=== PATIENT | male | born 1945 | race Caucasian/White ===

== ENCOUNTER → 2020-10-15 09:10 | Outpatient (BNVA) | payer OTHER, SELFPAY | PROVIDERS: PCP Internal Medicine; Visit Provider Internal Medicine Cardiovascular Disease | DX: I25.10 Atherosclerotic heart disease of native coronary artery without angina pectoris (principal); I49.1 Atrial premature depolarization; E11.9 Type 2 diabetes mellitus without complications | CPT/HCPCS: 93005 ==

== ENCOUNTER → 2020-11-06 14:18 | Outpatient (REF) | payer OTHER, SELFPAY ==
--- NOTE | 2020-11-06 14:13 | ECG_ITS ---
Hook-up date: 2020-11-06 14:31:00 Duration: 24:41:00 Test Indications: TYPE II DM, ATRIAL PREMATURE DEP Medications: 123730 QRS complexes 1318 Ventricular ectopics which represent 1 % of total QRS comp. 2822 Supraventricular ectopics which represent 2 % of total QRS comp. * Paced QRS complexs which represent % of total QRS comp. VENTRICULAR ECTOPY 1310 Isolated 0 Bigeminal Cycles 4 Couplets 0 Runs 0 Beats in Runs * Beats LONGEST at * BPM at :: -- * Beats FASTEST at * BPM at :: -- SUPRAVENTRICULAR ECTOPY 2751 Isolated 28 Couplets 5 Runs 15 Beats in Runs 3 Beats LONGEST at 117 BPM at 18:05:59 2020-11-06 3 Beats FASTEST at 117 BPM at 18:05:59 2020-11-06 HEART RATES 48 MIN at 17:07:39 2020-11-06 70 AVG 104 MAX at 10:55:44 2020-11-07 LONGEST RR 1.2720 secs at 16:56:56 2020-11-06 S-T LEVELS Channel 1 - 128 mm at 14:31:00 2020-11-06 - 128 mm at 14:31:00 2020-11-06 Channel 2 - 128 mm at 14:31:00 2020-11-06 - 128 mm at 14:31:00 2020-11-06 Channel 3 - 128 mm at 03:35:01 -- - 128 mm at 03:35:01 Underlyiing rhythm is sinus; Average ventricular rate 70/min; range 48-104/min; Frequent supraventricular ectopy (3% of total beats); Occasional ventricular ectopy (1% of total beats); Patient did not report any symptoms in the diary Referred By: Mykel Hernandez Overread By: MARIETTA ALEJANDRO
== END ==
LOC: HO.CARD 14:18
PROVIDERS: Visit Provider Internal Medicine Cardiovascular Disease
DX: I49.1 Atrial premature depolarization (principal); E11.9 Type 2 diabetes mellitus without complications
CPT/HCPCS: 93225; 93226

== ENCOUNTER 2021-03-15 07:58 | Outpatient (REF) | payer OTHER, SELFPAY ==
[2021-03-15 08:48] LABS: MANUAL DIFF FLAG NO
[2021-03-15 08:52] LABS: Basophils Absolute Auto 0.1 X10*3/uL (0.0-0.2); Basophils Percent Auto 1.4 % (0-2); Eosinophils Absolute Auto 0.5 X10*3/uL (0.0-0.4); Eosinophils Percent Auto 7.5 % (0-4); Hematocrit 42.4 % (42-52); Hemoglobin 14.2 g/dl (14.0-18.0); Imm Gran Abs Auto 0.02 X10*3/uL (0.00-0.03); Imm Gran Pct Auto 0.3 % (0.0-0.4); Lymphocytes Absolute Auto 1.9 X10*3/uL (1.2-4.9); Lymphocytes Percent Auto 27.2 % (20-40); Mean Corpuscular HGB Conc 33.5 g/dl (31.0-36.0); Mean Corpuscular Hemoglobin 29.5 pg (27.0-33.0); Mean Platelet Volume 9.5 fL (9.4-12.4); Monocytes Absolute Auto 0.7 X10*3/uL (0.1-1.2); Neutrophils Absolute Auto 3.7 X10*3/uL (2.0-8.3); Neutrophils Percent Auto 53.6 % (45-73); Platelet Count 267 X10*3/uL (160-400); Red Blood Count 4.82 X10*6/uL (4.60-5.80); Red Cell Distribution Width 13.5 % (11.0-16.0); White Blood Count 6.9 X10*3/uL (4.8-10.8)
[2021-03-15 09:01] LABS: Estimated Average Glucose 197 mg/dL; Hemoglobin A1c % 8.5 %
[2021-03-15 09:26] LABS: Alanine Aminotransferase 18 U/L (0-40); Albumin Level 3.9 g/dL (3.5-5.0); Alkaline Phosphatase 54 U/L (39-117); Anion Gap 12 (12-20); Aspartate Amino Transferase 19 U/L (5-37); Bilirubin Total 0.5 mg/dL (0.0-1.0); Blood Urea Nitrogen 21 mg/dL (9-16); Calcium 9.1 mg/dL (8.4-10.2); Carbon Dioxide 25 mmol/L (22-29); Chloride 107 mmol/L (96-108); Estimated Glomerular Filt Rate > 60; Glucose Random 139 mg/dL (60-115); Potassium 4.4 mmol/L (3.3-5.1); Sodium 140 mmol/L (135-145); Total Protein 6.7 g/dL (6.5-8.0)
[2021-03-15 09:33] LABS: Uric Acid 8.3 mg/dL (3.4-7.0)
[2021-03-15 09:37] LABS: Creatinine Urine 121.58 mg/dL; Microalbum/Creatinine Ratio Ur 10.6 ug/mg cr
[2021-03-15 09:47] LABS: Thyroid Stimulating Hormone 3.51 uIU/mL (0.32-4.0)
== END 2021-03-15 07:59 | disposition home or self-care (01) ==
LOC: HO.LAB 07:58
PROVIDERS: PCP Internal Medicine; Visit Provider Internal Medicine
DX: M10.9 Gout, unspecified (principal); E03.9 Hypothyroidism, unspecified; I12.9 Hypertensive chronic kidney disease with stage 1 through stage 4 chronic kidney disease, or unspecified chronic kidney disease; N18.9 Chronic kidney disease, unspecified; E11.22 Type 2 diabetes mellitus with diabetic chronic kidney disease
CPT/HCPCS: 36415; 80053; 82043; 83036; 84443; 84550; 85025

== ENCOUNTER 2021-11-12 07:44 | Outpatient (REF) | payer OTHER, SELFPAY ==
[2021-11-12 08:26] LABS: MANUAL DIFF FLAG NO
[2021-11-12 08:52] LABS: Basophils Absolute Auto 0.1 X10*3/uL (0.0-0.2); Basophils Percent Auto 1.2 % (0-2); Eosinophils Absolute Auto 0.5 X10*3/uL (0.0-0.4); Hematocrit 45.6 % (42.0-52.0); Hemoglobin 14.9 g/dl (14.0-18.0); Imm Gran Abs Auto 0.02 X10*3/uL (0.00-0.03); Imm Gran Pct Auto 0.3 % (0.0-0.4); Lymphocytes Absolute Auto 2.1 X10*3/uL (1.2-4.9); Lymphocytes Percent Auto 28.4 % (20-40); Mean Corpuscular HGB Conc 32.7 g/dl (31.0-36.0); Mean Corpuscular Volume 88.7 fL (80.0-98.0); Mean Platelet Volume 9.5 fL (9.4-12.4); Monocytes Absolute Auto 0.6 X10*3/uL (0.1-1.2); Monocytes Percent Auto 8.4 % (2-11); Neutrophils Absolute Auto 4.2 x10*3/uL (2.0-8.3); Neutrophils Percent Auto 55.7 % (45-73); Platelet Count 243 X10*3/uL (160-400); Red Blood Count 5.14 X10*6/uL (4.60-5.80); Red Cell Distribution Width 13.5 % (11.0-16.0); White Blood Count 7.5 X10*3/uL (4.8-10.8)
[2021-11-12 09:17] LABS: Estimated Average Glucose 306 mg/dL; Hemoglobin A1c % 12.3 %
[2021-11-12 09:18] LABS: Alanine Aminotransferase 41 U/L (0-40); Alkaline Phosphatase 68 U/L (39-117); Anion Gap 16 (12-20); Aspartate Amino Transferase 34 U/L (5-37); Bilirubin Total 0.6 mg/dL (0.0-1.0); Blood Urea Nitrogen 29 mg/dL (9-16); Calcium 9.5 mg/dL (8.4-10.2); Carbon Dioxide 23 mmol/L (22-29); Chloride 101 mmol/L (96-108); Cholesterol 167 mg/dL; Estimated Glomerular Filt Rate 45; Glucose Fasting 347 mg/dL (60-99); HDL Cholesterol 30 mg/dL; LDL Cholesterol Calculated 63 mg/dl; Potassium 4.7 mmol/L (3.3-5.1); Sodium 135 mmol/L (135-145); Total Protein 7.1 g/dL (6.5-8.0); Triglycerides 373 mg/dL; Uric Acid 8.2 mg/dL (3.4-7.0)
[2021-11-12 09:41] LABS: Free T4 (Free Thyroxine) 0.87 ng/dL (0.71-1.85); Prostate Specific Antigen 2.48 ng/mL (<0.05-4.0); Thyroid Stimulating Hormone 9.11 uIU/mL (0.32-4.0)
[2021-11-12 10:11] LABS: Creatinine Urine 75.45 mg/dL; Microalbum/Creatinine Ratio Ur 6.6 ug/mg cr
== END 2021-11-12 07:45 | disposition home or self-care (01) ==
LOC: HO.LAB 07:44
PROVIDERS: PCP Internal Medicine; Visit Provider Internal Medicine
DX: Z12.5 Encounter for screening for malignant neoplasm of prostate (principal); E11.9 Type 2 diabetes mellitus without complications; I25.10 Atherosclerotic heart disease of native coronary artery without angina pectoris; E03.9 Hypothyroidism, unspecified; E78.00 Pure hypercholesterolemia, unspecified; N40.0 Benign prostatic hyperplasia without lower urinary tract symptoms; M10.9 Gout, unspecified
CPT/HCPCS: 36415; 80053; 80061; 82043; 83036; 84153; 84439; 84443; 84550; 85025

== ENCOUNTER 2021-12-27 07:42 | Outpatient (REF) | payer OTHER, SELFPAY ==
[2021-12-27 08:38] LABS: Estimated Average Glucose 258 mg/dL; Hemoglobin A1c % 10.6 %
[2021-12-27 08:43] LABS: Alanine Aminotransferase 33 U/L (0-40); Alkaline Phosphatase 43 U/L (39-117); Anion Gap 14 (12-20); Aspartate Amino Transferase 30 U/L (5-37); Bilirubin Total 0.8 mg/dL (0.0-1.0); Blood Urea Nitrogen 20 mg/dL (9-16); Calcium 10.2 mg/dL (8.4-10.2); Carbon Dioxide 24 mmol/L (22-29); Chloride 106 mmol/L (96-108); Estimated Glomerular Filt Rate 53; Glucose Random 149 mg/dL (60-115); Potassium 4.6 mmol/L (3.3-5.1); Sodium 139 mmol/L (135-145)
[2021-12-27 09:05] LABS: Free T4 (Free Thyroxine) 1.01 ng/dL (0.71-1.85); Thyroid Stimulating Hormone 5.61 uIU/mL (0.32-4.0)
== END 2021-12-27 07:43 | disposition home or self-care (01) ==
LOC: HO.LAB 07:42
PROVIDERS: PCP Internal Medicine; Visit Provider Internal Medicine
DX: E11.9 Type 2 diabetes mellitus without complications (principal); N18.9 Chronic kidney disease, unspecified; E03.9 Hypothyroidism, unspecified
CPT/HCPCS: 36415; 80053; 83036; 84439; 84443

== ENCOUNTER 2022-03-15 07:18 | Outpatient (REF) | payer OTHER, SELFPAY ==
[2022-03-15 08:30] LABS: Alanine Aminotransferase 17 U/L (0-40); Albumin Level 3.9 g/dL (3.5-5.0); Alkaline Phosphatase 47 U/L (39-117); Anion Gap 13 (12-20); Aspartate Amino Transferase 18 U/L (5-37); Bilirubin Total 0.6 mg/dL (0.0-1.0); Blood Urea Nitrogen 23 mg/dL (9-16); Calcium 9.2 mg/dL (8.4-10.2); Carbon Dioxide 23 mmol/L (22-29); Chloride 106 mmol/L (96-108); Estimated Glomerular Filt Rate 59; Glucose Random 186 mg/dL (60-115); Potassium 4.4 mmol/L (3.3-5.1); Sodium 138 mmol/L (135-145); Total Protein 6.9 g/dL (6.5-8.0)
[2022-03-15 08:33] LABS: Estimated Average Glucose 206 mg/dL; Hemoglobin A1c % 8.8 %
[2022-03-15 08:54] LABS: Free T4 (Free Thyroxine) 0.86 ng/dL (0.71-1.85); Thyroid Stimulating Hormone 7.61 uIU/mL (0.32-4.0)
== END 2022-03-15 07:19 | disposition home or self-care (01) ==
LOC: HO.LAB 07:18
PROVIDERS: PCP Internal Medicine; Visit Provider Internal Medicine
DX: E78.00 Pure hypercholesterolemia, unspecified (principal); I25.10 Atherosclerotic heart disease of native coronary artery without angina pectoris; E11.22 Type 2 diabetes mellitus with diabetic chronic kidney disease; N18.9 Chronic kidney disease, unspecified
CPT/HCPCS: 36415; 80053; 83036; 84439; 84443

== ENCOUNTER 2022-06-13 08:34 | Outpatient (REF) | payer OTHER, SELFPAY ==
[2022-06-13 08:48] LABS: MANUAL DIFF FLAG NO
[2022-06-13 09:06] LABS: Basophils Absolute Auto 0.1 X10*3/uL (0.0-0.2); Basophils Percent Auto 1.3 % (0-2); Eosinophils Absolute Auto 0.4 X10*3/uL (0.0-0.4); Hematocrit 48.2 % (42.0-52.0); Hemoglobin 15.7 g/dl (14.0-18.0); Imm Gran Abs Auto 0.02 X10*3/uL (0.00-0.03); Imm Gran Pct Auto 0.3 % (0.0-0.4); Lymphocytes Absolute Auto 2.1 X10*3/uL (1.2-4.9); Lymphocytes Percent Auto 29.1 % (20-40); Mean Corpuscular HGB Conc 32.6 g/dl (31.0-36.0); Mean Corpuscular Hemoglobin 28.1 pg (27.0-33.0); Mean Corpuscular Volume 86.2 fL (80.0-98.0); Mean Platelet Volume 9.3 fL (9.4-12.4); Monocytes Absolute Auto 0.6 X10*3/uL (0.1-1.2); Monocytes Percent Auto 8.9 % (2-11); NRBC Pct Auto 0.4 /100WBC (0.0-0.2); Neutrophils Absolute Auto 3.8 x10*3/uL (2.0-8.3); Neutrophils Percent Auto 54.4 % (45-73); Platelet Count 263 X10*3/uL (160-400); Red Blood Count 5.59 X10*6/uL (4.60-5.80); Red Cell Distribution Width 14.2 % (11.0-16.0)
[2022-06-13 09:16] LABS: Estimated Average Glucose 252 mg/dL; Hemoglobin A1c % 10.4 %
[2022-06-13 09:27] LABS: Alanine Aminotransferase 22 U/L (0-40); Albumin Level 4.1 g/dL (3.5-5.0); Alkaline Phosphatase 60 U/L (39-117); Anion Gap 17 (12-20); Aspartate Amino Transferase 19 U/L (5-37); Bilirubin Total 0.7 mg/dL (0.0-1.0); Blood Urea Nitrogen 21 mg/dL (9-16); Calcium 9.8 mg/dL (8.4-10.2); Carbon Dioxide 27 mmol/L (22-29); Chloride 102 mmol/L (96-108); Estimated Glomerular Filt Rate 50; Glucose Random 181 mg/dL (60-115); Potassium 4.6 mmol/L (3.3-5.1); Sodium 141 mmol/L (135-145); Total Protein 7.2 g/dL (6.5-8.0)
[2022-06-13 09:50] LABS: Free T4 (Free Thyroxine) 1.01 ng/dL (0.71-1.85); Thyroid Stimulating Hormone 4.84 uIU/mL (0.32-4.0)
== END 2022-06-13 08:35 | disposition home or self-care (01) ==
LOC: HO.LAB 08:34
PROVIDERS: PCP Internal Medicine; Visit Provider Internal Medicine
DX: E03.9 Hypothyroidism, unspecified (principal); I25.10 Atherosclerotic heart disease of native coronary artery without angina pectoris; N18.9 Chronic kidney disease, unspecified; E11.9 Type 2 diabetes mellitus without complications
CPT/HCPCS: 36415; 80053; 83036; 84439; 84443; 85025

== ENCOUNTER 2022-10-07 07:23 | Outpatient (REF) | payer OTHER, SELFPAY ==
[2022-10-07 08:40] LABS: Estimated Average Glucose 326 mg/dL
[2022-10-07 08:45] LABS: Anion Gap 15 (12-20); Blood Urea Nitrogen 21 mg/dL (9-16); Calcium 9.1 mg/dL (8.4-10.2); Carbon Dioxide 25 mmol/L (22-29); Chloride 103 mmol/L (96-108); Estimated Glomerular Filt Rate 50; Glucose Random 217 mg/dL (60-115); Potassium 4.3 mmol/L (3.3-5.1); Sodium 139 mmol/L (135-145)
== END 2022-10-07 07:24 | disposition home or self-care (01) ==
LOC: HO.LAB 07:23
PROVIDERS: PCP Internal Medicine; Visit Provider Internal Medicine
DX: E11.22 Type 2 diabetes mellitus with diabetic chronic kidney disease (principal); I25.10 Atherosclerotic heart disease of native coronary artery without angina pectoris; N18.9 Chronic kidney disease, unspecified
CPT/HCPCS: 36415; 80048; 83036

== ENCOUNTER 2022-12-12 07:35 | Outpatient (REF) | payer OTHER, SELFPAY ==
[2022-12-12 08:41] LABS: Estimated Average Glucose 200 mg/dL; Hemoglobin A1c % 8.6 %
[2022-12-12 08:56] LABS: Anion Gap 14 (12-20); Blood Urea Nitrogen 22 mg/dL (9-16); Calcium 9.2 mg/dL (8.4-10.2); Carbon Dioxide 26 mmol/L (22-29); Chloride 106 mmol/L (96-108); Estimated Glomerular Filt Rate 55; Glucose Random 94 mg/dL (60-115); Potassium 4.3 mmol/L (3.3-5.1); Sodium 142 mmol/L (135-145)
== END 2022-12-12 07:36 | disposition home or self-care (01) ==
LOC: HO.LAB 07:35
PROVIDERS: PCP Internal Medicine; Visit Provider Internal Medicine
DX: E11.22 Type 2 diabetes mellitus with diabetic chronic kidney disease (principal); I25.10 Atherosclerotic heart disease of native coronary artery without angina pectoris; N18.9 Chronic kidney disease, unspecified
CPT/HCPCS: 36415; 80048; 83036

== ENCOUNTER 2023-04-15 06:49 | Outpatient (REF) | payer OTHER, SELFPAY ==
[2023-04-15 07:04] LABS: MANUAL DIFF FLAG NO
[2023-04-15 07:14] LABS: Basophils Absolute Auto 0.1 X10*3/uL (0.0-0.2); Basophils Percent Auto 1.2 % (0-2); Eosinophils Absolute Auto 0.6 X10*3/uL (0.0-0.4); Eosinophils Percent Auto 6.9 % (0-4); Hematocrit 45.1 % (42.0-52.0); Hemoglobin 14.6 g/dl (14.0-18.0); Imm Gran Abs Auto 0.02 X10*3/uL (0.00-0.03); Imm Gran Pct Auto 0.2 % (0.0-0.4); Lymphocytes Absolute Auto 2.2 X10*3/uL (1.2-4.9); Lymphocytes Percent Auto 26.8 % (20-40); Mean Corpuscular HGB Conc 32.4 g/dl (31.0-36.0); Mean Corpuscular Hemoglobin 28.9 pg (27.0-33.0); Mean Corpuscular Volume 89.3 fL (80.0-98.0); Mean Platelet Volume 9.7 fL (9.4-12.4); Monocytes Absolute Auto 0.8 X10*3/uL (0.1-1.2); Monocytes Percent Auto 10.3 % (2-11); Neutrophils Absolute Auto 4.4 x10*3/uL (2.0-8.3); Neutrophils Percent Auto 54.6 % (45-73); Platelet Count 256 X10*3/uL (160-400); Red Blood Count 5.05 X10*6/uL (4.60-5.80); Red Cell Distribution Width 14.6 % (11.0-16.0)
[2023-04-15 07:49] LABS: Alanine Aminotransferase 17 U/L (0-40); Alkaline Phosphatase 54 U/L (39-117); Anion Gap 12 (12-20); Aspartate Amino Transferase 17 U/L (5-37); Bilirubin Total 0.7 mg/dL (0.0-1.0); Blood Urea Nitrogen 23 mg/dL (9-16); Calcium 9.4 mg/dL (8.4-10.2); Carbon Dioxide 25 mmol/L (22-29); Chloride 107 mmol/L (96-108); Cholesterol 133 mg/dL; Estimated Glomerular Filt Rate 55; Glucose Fasting 170 mg/dL (60-99); HDL Cholesterol 35 mg/dL; LDL Cholesterol Calculated 69 mg/dl; Potassium 4.4 mmol/L (3.3-5.1); Sodium 140 mmol/L (135-145); Total Protein 7.3 g/dL (6.5-8.0); Triglycerides 149 mg/dL
[2023-04-15 07:52] LABS: Estimated Average Glucose 154 mg/dL
[2023-04-15 08:16] LABS: Prostate Specific Antigen 3.09 ng/mL (<0.05-4.0)
[2023-04-15 10:14] LABS: Appearance Urine Clear; Color Urine Yellow; Glucose Urine UA Negative (Negative); Leukocyte Esterase Urine Negative (Negative); Nitrite Urine Negative (Negative); PH 5.5 (5.0-9.0); Specific Gravity - Urine 1.015 (1.005-1.025); Urine Blood Negative (Negative); Urine Ketones Negative (Negative); Urine Protein Negative (Neg-Trace)
[2023-04-15 11:15] LABS: Creatinine Urine 95.42 mg/dL; Microalbum/Creatinine Ratio Ur 10.4 ug/mg cr
== END 2023-04-15 06:50 | disposition home or self-care (01) ==
LOC: HO.LAB 06:49
PROVIDERS: PCP Internal Medicine; Visit Provider Internal Medicine
DX: E11.22 Type 2 diabetes mellitus with diabetic chronic kidney disease (principal); I25.10 Atherosclerotic heart disease of native coronary artery without angina pectoris; E78.00 Pure hypercholesterolemia, unspecified; N18.9 Chronic kidney disease, unspecified; Z12.5 Encounter for screening for malignant neoplasm of prostate
CPT/HCPCS: 36415; 80053; 80061; 81003; 82043; 83036; 84153; 85025

== ENCOUNTER 2023-07-09 17:09 | Outpatient (REF) | payer OTHER, SELFPAY ==
[2023-07-09 17:24] LABS: IDNOW Serial# 08D9AD1C; Strep A Nucleic Acid Negative (Negative)
== END 2023-07-09 17:10 | disposition home or self-care (01) ==
LOC: HO.LNP 17:09
PROVIDERS: Visit Provider Internal Medicine
DX: J02.9 Acute pharyngitis, unspecified (principal)
CPT/HCPCS: 87070; 87651

== ENCOUNTER 2023-08-18 07:37 | Outpatient (REF) | payer OTHER, SELFPAY ==
[2023-08-18 08:34] LABS: Alanine Aminotransferase 18 U/L (0-40); Albumin Level 3.8 g/dL (3.5-5.0); Alkaline Phosphatase 47 U/L (39-117); Anion Gap 10 (12-20); Aspartate Amino Transferase 17 U/L (5-37); Bilirubin Total 0.6 mg/dL (0.0-1.0); Blood Urea Nitrogen 20 mg/dL (9-16); Calcium 9.1 mg/dL (8.4-10.2); Carbon Dioxide 27 mmol/L (22-29); Chloride 105 mmol/L (96-108); Estimated Glomerular Filt Rate > 60; Glucose Random 198 mg/dL (60-115); Potassium 4.3 mmol/L (3.3-5.1); Sodium 138 mmol/L (135-145); Total Protein 7.2 g/dL (6.5-8.0)
[2023-08-18 08:36] LABS: Estimated Average Glucose 192 mg/dL; Hemoglobin A1c % 8.3 % (<6.0)
== END 2023-08-18 07:38 | disposition home or self-care (01) ==
LOC: HO.LAB 07:37
PROVIDERS: PCP Internal Medicine; Visit Provider Internal Medicine
DX: E11.9 Type 2 diabetes mellitus without complications (principal); E03.9 Hypothyroidism, unspecified; I25.10 Atherosclerotic heart disease of native coronary artery without angina pectoris
CPT/HCPCS: 36415; 80053; 83036; 84439; 84443

== ENCOUNTER 2023-11-24 07:29 | Outpatient (REF) | payer OTHER, SELFPAY ==
[2023-11-24 08:06] LABS: Estimated Average Glucose 223 mg/dL; Hemoglobin A1c % 9.4 % (<6.0)
[2023-11-24 08:16] LABS: Anion Gap 12 (12-20); Blood Urea Nitrogen 22 mg/dL (9-16); Calcium 9.7 mg/dL (8.4-10.2); Carbon Dioxide 25 mmol/L (22-29); Chloride 106 mmol/L (96-108); Estimated Glomerular Filt Rate 56; Glucose Random 213 mg/dL (60-115); Potassium 4.1 mmol/L (3.3-5.1); Sodium 139 mmol/L (135-145)
[2023-11-24 08:28] LABS: Free T4 (Free Thyroxine) 1.03 ng/dL (0.71-1.85); Thyroid Stimulating Hormone 1.48 uIU/mL (0.32-4.0)
== END 2023-11-24 07:30 | disposition home or self-care (01) ==
LOC: HO.LAB 07:29
PROVIDERS: PCP Internal Medicine; Visit Provider Internal Medicine
DX: E11.9 Type 2 diabetes mellitus without complications (principal); E03.9 Hypothyroidism, unspecified; I25.10 Atherosclerotic heart disease of native coronary artery without angina pectoris
CPT/HCPCS: 36415; 80048; 83036; 84439; 84443

== ENCOUNTER 2024-03-14 06:26 | Outpatient (REF) | payer OTHER, SELFPAY ==
[2024-03-14 08:00] LABS: Estimated Average Glucose 206 mg/dL; Hemoglobin A1c % 8.8 % (<6.0)
[2024-03-14 08:22] LABS: Alanine Aminotransferase 22 U/L (0-40); Albumin Level 4.2 g/dL (3.5-5.0); Alkaline Phosphatase 53 U/L (39-117); Anion Gap 13 (12-20); Aspartate Amino Transferase 20 U/L (5-37); Bilirubin Total 0.8 mg/dL (0.0-1.0); Blood Urea Nitrogen 26 mg/dL (9-16); Calcium 9.9 mg/dL (8.4-10.2); Carbon Dioxide 26 mmol/L (22-29); Chloride 107 mmol/L (96-108); Estimated Glomerular Filt Rate 56; Glucose Random 129 mg/dL (60-115); Sodium 142 mmol/L (135-145); Total Protein 7.6 g/dL (6.5-8.0)
== END 2024-03-14 06:27 | disposition home or self-care (01) ==
LOC: HO.LAB 06:26
PROVIDERS: PCP Internal Medicine; Visit Provider Internal Medicine
DX: E11.9 Type 2 diabetes mellitus without complications (principal); I10 Essential (primary) hypertension; E78.00 Pure hypercholesterolemia, unspecified; I25.10 Atherosclerotic heart disease of native coronary artery without angina pectoris
CPT/HCPCS: 36415; 80053; 83036

== ENCOUNTER 2024-03-26 10:14 | Emergency (ER) | payer OTHER, SELFPAY ==
[2024-03-26 10:21] VITALS: BP 146/66; PULSE 74; RESP 16; TEMP 36.4; O2SAT 94; BMI 23.7
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
[2024-03-26 10:45] VITALS: BP 146/66; PULSE 74; RESP 16; TEMP 36.4; O2SAT 94
== END 2024-03-26 10:45 | disposition home or self-care (01) ==
LOC: HO.ED 10:35
PROVIDERS: Emergency Provider Emergency Medicine; PCP Internal Medicine
DX: T23.201A Burn of second degree of right hand, unspecified site, initial encounter (principal); T31.0 Burns involving less than 10% of body surface; X15.8XXA Contact with other hot household appliances, initial encounter; Y93.G2 Activity, grilling and smoking food; Y92.007 Garden or yard of unspecified non-institutional (private) residence as the place of occurrence of the external cause; Y99.9 Unspecified external cause status; M79.641 Pain in right hand
CPT/HCPCS: 16020; 99282; 99283

== ENCOUNTER 2024-04-13 09:48 | Emergency (ER) | payer OTHER, SELFPAY ==
--- NOTE | 2024-04-13 09:51 | ECG_ITS ---
Test Reason : AFIB Blood Pressure : / mmHG Vent. Rate : 068 BPM Atrial Rate : 068 BPM P-R Int : 204 ms QRS Dur : 108 ms QT Int : 444 ms P-R-T Axes : 037 012 102 degrees QTc Int : 472 ms Normal sinus rhythm with sinus arrhythmia Cannot rule out Anterior infarct , age undetermined T wave abnormality, consider lateral ischemia Abnormal ECG When compared with ECG of 13-JUL-2009 08:57, No significant changes seen Referred By: Generic ED Physician Electronically Signed By:MARIETTA ALEJANDRO
[2024-04-13 09:53] VITALS: BP 174/78; PULSE 75; RESP 19; TEMP 36.4; O2SAT 93; BMI 32.5
[2024-04-13 10:23] LABS: MANUAL DIFF FLAG NO
[2024-04-13 10:35] LABS: Basophils Absolute Auto 0.1 X10*3/uL (0.0-0.2); Basophils Percent Auto 0.7 % (0-2); Eosinophils Absolute Auto 0.4 X10*3/uL (0.0-0.4); Eosinophils Percent Auto 4.7 % (0-4); Hematocrit 44.5 % (42.0-52.0); Hemoglobin 14.8 g/dl (14.0-18.0); Imm Gran Abs Auto 0.03 X10*3/uL (0.00-0.03); Imm Gran Pct Auto 0.4 % (0.0-0.4); Lymphocytes Absolute Auto 1.4 X10*3/uL (1.2-4.9); Lymphocytes Percent Auto 17.1 % (20-40); Mean Corpuscular HGB Conc 33.3 g/dl (31.0-36.0); Mean Corpuscular Hemoglobin 29.2 pg (27.0-33.0); Mean Corpuscular Volume 87.9 fL (80.0-98.0); Mean Platelet Volume 9.3 fL (9.4-12.4); Monocytes Absolute Auto 0.6 X10*3/uL (0.1-1.2); Neutrophils Absolute Auto 5.6 x10*3/uL (2.0-8.3); Neutrophils Percent Auto 70.1 % (45-73); Platelet Count 292 X10*3/uL (160-400); Red Blood Count 5.06 X10*6/uL (4.60-5.80); Red Cell Distribution Width 13.6 % (11.0-16.0)
[2024-04-13 10:36] LABS: INTERNATIONAL NORM RATIO 0.9 (0.9-1.1); Prothrombin Time 11.5 SEC (11.1-13.3)
[2024-04-13 10:48] LABS: Alanine Aminotransferase 23 U/L (0-40); Alkaline Phosphatase 59 U/L (39-117); Anion Gap 16 (12-20); Aspartate Amino Transferase 15 U/L (5-37); Bilirubin Total 0.6 mg/dL (0.0-1.0); Blood Urea Nitrogen 21 mg/dL (9-16); Calcium 9.9 mg/dL (8.4-10.2); Carbon Dioxide 22 mmol/L (22-29); Chloride 104 mmol/L (96-108); Estimated Glomerular Filt Rate 46; Glucose Random 289 mg/dL (60-115); Magnesium 1.7 mg/dL (1.6-2.6); Potassium 4.4 mmol/L (3.3-5.1); Sodium 138 mmol/L (135-145); Total Protein 7.3 g/dL (6.5-8.0)
[2024-04-13 11:04] VITALS: BP 130/59; PULSE 65; RESP 13; O2SAT 94
[2024-04-13 11:59] LABS: TSH reflex Free T4 1.42 uIU/mL (0.32-4.0)
[2024-04-13 12:00] VITALS: BP 155/81; PULSE 50; RESP 13; TEMP 36.8; O2SAT 97
[2024-04-13] MEDS: Lactated Ringers 1,000 ML 999 ML IV (12:13)
--- NOTE | 2024-04-13 12:34 | MHC.EDTECH ---
vital signs done, pt aware we need stool sample, call yoo within reach.
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
[2024-04-13 13:27] LABS: Free T4 (Free Thyroxine) 0.92 ng/dL (0.71-1.85)
[2024-04-13 13:37] VITALS: BP 147/84; PULSE 60; RESP 15; TEMP 36.8; O2SAT 95
[2024-04-13 14:12] VITALS: BP 147/84; PULSE 60; RESP 15; TEMP 36.8; O2SAT 95
[2024-04-13 15:05] LABS: CDiff Gene PCR NEGATIVE (Negative)
[2024-04-13 16:02] LABS: Adenovirus F 40/41 Not Detected (Not Detect.); Astrovirus Not Detected (Not Detect.); Campylobacter Not Detected (Not Detect.); Cryptosporidium Not Detected (Not Detect.); Cyclospora cayetanensis Not Detected (Not Detect.); E. coli EAEC Not Detected (Not Detect.); E. coli EPEC Detected (Not Detect.); E. coli ETEC Not Detected (Not Detect.); E. coli STEC Not Detected (Not Detect.); Entamoeba histolytica Not Detected (Not Detect.); Giardia lamblia Not Detected (Not Detect.); Norovirus GI/GII Not Detected (Not Detect.); Plesiomonas shigelloides Not Detected (Not Detect.); Rotavirus A Not Detected (Not Detect.); Salmonella Not Detected (Not Detect.); Sapovirus Not Detected (Not Detect.); Shigella sp./EIEC Not Detected (Not Detect.); Vibrio Not Detected (Not Detect.); Vibrio Cholerae Not Detected (Not Detect.); Yersinia enterocolitica Not Detected (Not Detect.)
== END 2024-04-13 14:19 | disposition home or self-care (01) ==
PROVIDERS: Physician Assistant; Emergency Provider Emergency Medicine; PCP Internal Medicine
DX: I49.1 Atrial premature depolarization (principal); E86.0 Dehydration; R19.7 Diarrhea, unspecified; E11.9 Type 2 diabetes mellitus without complications; E78.5 Hyperlipidemia, unspecified; Z95.1 Presence of aortocoronary bypass graft; Z79.02 Long term (current) use of antithrombotics/antiplatelets; Z79.899 Other long term (current) drug therapy; Z79.82 Long term (current) use of aspirin
CPT/HCPCS: 36415; 80053; 83735; 84439; 84443; 84484; 85025; 85610; 87493; 87507; 93005; 96360; 96361; 99284; 99285; J7120

== ENCOUNTER → 2024-04-13 09:51 | Outpatient (BNV) | payer OTHER, SELFPAY | PROVIDERS: Emergency Provider Emergency Medicine; PCP Internal Medicine; Visit Provider Internal Medicine | DX: I48.91 Unspecified atrial fibrillation (principal); R94.31 Abnormal electrocardiogram [ECG] [EKG] | CPT/HCPCS: 93010 ==

== ENCOUNTER 2024-04-20 07:57 | Outpatient (REF) | payer OTHER, SELFPAY ==
[2024-04-20 10:39] LABS: Free T4 (Free Thyroxine) 0.96 ng/dL (0.71-1.85); Thyroid Stimulating Hormone 4.33 uIU/mL (0.32-4.0)
== END 2024-04-20 07:58 | disposition home or self-care (01) ==
LOC: HO.LAB 07:57
PROVIDERS: PCP Internal Medicine; Visit Provider Internal Medicine
DX: E03.9 Hypothyroidism, unspecified (principal)
CPT/HCPCS: 36415; 84439; 84443

== ENCOUNTER 2024-06-22 09:53 | Outpatient (REF) | payer OTHER, SELFPAY ==
[2024-06-22 11:18] LABS: Anion Gap 14 (12-20); Blood Urea Nitrogen 25 mg/dL (9-16); Calcium 9.8 mg/dL (8.4-10.2); Carbon Dioxide 26 mmol/L (22-29); Chloride 102 mmol/L (96-108); Estimated Glomerular Filt Rate 46; Glucose Random 319 mg/dL (60-115); Potassium 4.4 mmol/L (3.3-5.1); Sodium 138 mmol/L (135-145)
[2024-06-22 11:23] LABS: Estimated Average Glucose 200 mg/dL; Hemoglobin A1C 271.8286 umol/L; Hemoglobin A1c % 8.6 % (<6.0); Total Hemoglobin (HGBA1C) 3832.0167 umol/L
== END 2024-06-22 09:54 | disposition home or self-care (01) ==
LOC: HO.10HDL 09:53
PROVIDERS: Visit Provider Internal Medicine
DX: E11.9 Type 2 diabetes mellitus without complications (principal)
CPT/HCPCS: 36415; 80048; 83036

== ENCOUNTER 2024-07-12 08:31 | Outpatient (REF) | payer OTHER, SELFPAY ==
[2024-07-12 09:16] LABS: Estimated Average Glucose 200 mg/dL; Hemoglobin A1C 260.6685 umol/L; Hemoglobin A1c % 8.6 % (<6.0); Total Hemoglobin (HGBA1C) 3699.9177 umol/L
[2024-07-12 09:41] LABS: Alanine Aminotransferase 26 U/L (0-40); Albumin Level 4.1 g/dL (3.5-5.0); Alkaline Phosphatase 48 U/L (39-117); Anion Gap 12 (12-20); Aspartate Amino Transferase 28 U/L (5-37); Bilirubin Total 0.8 mg/dL (0.0-1.0); Blood Urea Nitrogen 18 mg/dL (9-16); Carbon Dioxide 27 mmol/L (22-29); Chloride 106 mmol/L (96-108); Estimated Glomerular Filt Rate 59; Glucose Random 192 mg/dL (60-115); Potassium 4.2 mmol/L (3.3-5.1); Sodium 141 mmol/L (135-145); Total Protein 7.1 g/dL (6.5-8.0)
[2024-07-12 10:07] LABS: Free T4 (Free Thyroxine) 1.13 ng/dL (0.71-1.85); Thyroid Stimulating Hormone 1.92 uIU/mL (0.32-4.0)
[2024-07-12 11:13] LABS: Creatinine Urine 70.78 mg/dL; Microalbum/Creatinine Ratio Ur 21.1 ug/mg cr (<30)
== END 2024-07-12 08:32 | disposition home or self-care (01) ==
LOC: HO.LAB 08:31
PROVIDERS: PCP Internal Medicine; Visit Provider Internal Medicine
DX: E11.9 Type 2 diabetes mellitus without complications (principal); I25.10 Atherosclerotic heart disease of native coronary artery without angina pectoris; E03.9 Hypothyroidism, unspecified
CPT/HCPCS: 36415; 80053; 82043; 82570; 83036; 84439; 84443

== ENCOUNTER 2024-09-26 12:15 | Outpatient (REF) | payer OTHER, SELFPAY ==
[2024-09-26 12:58] LABS: MANUAL DIFF FLAG NO
[2024-09-26 13:08] LABS: Basophils Absolute Auto 0.1 X10*3/uL (0.0-0.2); Eosinophils Absolute Auto 0.2 X10*3/uL (0.0-0.4); Eosinophils Percent Auto 2.3 % (0-4); Hematocrit 44.8 % (42.0-52.0); Hemoglobin 14.7 g/dl (14.0-18.0); Imm Gran Abs Auto 0.02 X10*3/uL (0.00-0.03); Imm Gran Pct Auto 0.2 % (0.0-0.4); Lymphocytes Absolute Auto 1.7 X10*3/uL (1.2-4.9); Lymphocytes Percent Auto 18.8 % (20-40); Mean Corpuscular HGB Conc 32.8 g/dl (31.0-36.0); Mean Corpuscular Volume 88.4 fL (80.0-98.0); Mean Platelet Volume 9.6 fL (9.4-12.4); Monocytes Absolute Auto 0.8 X10*3/uL (0.1-1.2); Monocytes Percent Auto 8.3 % (2-11); Neutrophils Absolute Auto 6.5 x10*3/uL (2.0-8.3); Neutrophils Percent Auto 69.4 % (45-73); Platelet Count 277 X10*3/uL (160-400); Red Blood Count 5.07 X10*6/uL (4.60-5.80); White Blood Count 9.3 X10*3/uL (4.8-10.8)
[2024-09-26 13:19] LABS: Estimated Average Glucose 192 mg/dL; Hemoglobin A1C 254.6025 umol/L; Hemoglobin A1c % 8.3 % (<6.0); Total Hemoglobin (HGBA1C) 3781.4032 umol/L
[2024-09-26 13:40] LABS: Alanine Aminotransferase 37 U/L (0-40); Alkaline Phosphatase 53 U/L (39-117); Anion Gap 10 (12-20); Aspartate Amino Transferase 23 U/L (5-37); Bilirubin Total 0.7 mg/dL (0.0-1.0); Blood Urea Nitrogen 24 mg/dL (9-16); Calcium 9.8 mg/dL (8.4-10.2); Carbon Dioxide 26 mmol/L (22-29); Chloride 111 mmol/L (96-108); Estimated Glomerular Filt Rate 51; Free T4 (Free Thyroxine) 1.14 ng/dL (0.71-1.85); Glucose Random 169 mg/dL (60-115); Potassium 4.4 mmol/L (3.3-5.1); Sodium 143 mmol/L (135-145); Thyroid Stimulating Hormone 2.97 uIU/mL (0.32-4.0); Total Protein 7.6 g/dL (6.5-8.0)
== END 2024-09-26 12:16 | disposition home or self-care (01) ==
LOC: HO.10HDL 12:15
PROVIDERS: Visit Provider Internal Medicine
DX: I12.9 Hypertensive chronic kidney disease with stage 1 through stage 4 chronic kidney disease, or unspecified chronic kidney disease (principal); E11.22 Type 2 diabetes mellitus with diabetic chronic kidney disease; N18.9 Chronic kidney disease, unspecified; I25.10 Atherosclerotic heart disease of native coronary artery without angina pectoris
CPT/HCPCS: 36415; 80053; 83036; 84439; 84443; 85025

== ENCOUNTER 2024-10-06 14:40 | Outpatient (AMB) | payer OTHER, SELFPAY ==
[2024-10-06 14:44] VITALS: BP 120/80; PULSE 138; BMI 26.7
--- NOTE | 2024-10-06 14:44 | MHC.OFFVIS ---
Vital Signs 10/06/24 14:44 Height 6 ft 3 in Weight 213 lb 13.574 oz BMI 26.7 BP 120/80 Blood Pressure Location Lt brachial Position Sitting Pulse 138 H Intake Visit Reasons: New patient seen in the past [facility] dc dx afib Intake Note: New patient d/c [facility] dx afib c/o funny feeling at times Furniture Decals Inspector Required: No System Configuration Specialist: System Configuration Specialist Present Accompanied by: Spouse Allergies No Known Allergies Allergy (Verified 04/13/24 09:56) Medication List - Last Reconciled 10/06/24 by Mykel Hernandez MD apixaban (Eliquis) 5 mg PO BID bacitracin 1 appl topical QID buspirone 10 mg PO BID folic acid 20 mg PO DAILY glipizide ER mg PO indomethacin mg PO PRN levothyroxine 125 mcg PO DAILY pantoprazole 40 mg PO DAILY rosuvastatin 20 mg PO DAILY 90 days sitagliptin phosphate (Januvia) 100 mg PO DAILY vitamin B complex 1 cap PO DAILY HPI Comments Details: Thank you for reestablishing Jagdish in cardiology care for management of newly detected atrial fibrillation with the last many months. Patient 78-year-old male with prior history of coronary artery bypass grafting, four-vessel was severe coronary disease in 2008. Recent myocardial perfusion imaging at [facility] in July was within normal limits. Patient over the last summer has been having increasing psychiatric breakdown with panic/anxiety attack. He has had significant amount of weight loss. There was no significant abnormality of thyroid although his thyroid replacement therapy has been reduced. He has been started on buspirone with improvement in his mood and anxiety level to a more functional status. However he has developed atrial fibrillation which has been difficult control. He has been taking Eliquis for the last 3 months. He notices elevated heart rate with palpitations. He denies any lightheadedness, syncope. Denies any chest tightness. As per the he does have symptoms of exertional fatigue and shortness of breath. He is still remains anxious about his overall health and personal situation. Takes all his medications otherwise. Currently on high-intensity statin therapy as well as diabetes medications. Denies any overt heart failure symptoms. [facility] Medical History Persistent atrial fibrillation Diabetes mellitus PAC (premature atrial contraction) Hyperlipidemia CAD (coronary artery disease) Surgical History S/P CABG x 4 Family History Father No problems noted. Mother No problems noted. Review of Systems Const Denies chills, Denies daytime sleepiness, Denies fatigue, Denies fever(s), Denies frequent falls, Denies poor appetite, Denies snoring, Denies stops breathing during sleep, Denies weakness, Denies weight gain and Denies weight loss Eyes Denies loss of vision ENT Denies dizziness and Denies hearing loss Card Denies chest pain, Denies claudication, Denies leg edema, Denies lightheadedness, Denies palpitations, Denies dyspnea, Denies dyspnea on exertion and Denies orthopnea Resp Denies cough, Denies excessive phlegm production, Denies dyspnea, Denies dyspnea on exertion, Denies snoring and Denies wheezing GI Denies abdominal pain, Denies hematochezia, Denies change in bowel habits, Denies nausea and Denies vomiting Denies dysuria and Denies urinary frequency Musc Denies arthralgias, Denies muscle weakness, Denies numbness and Denies other (frequent falls) Skin/Breast Denies nail changes and Denies rash Neuro Denies Abnormal speech present, Denies dizziness, Denies frequent falls, Denies loss of vision, Denies memory loss, Denies numbness and Denies weakness Psych Denies depression and Denies memory loss Endo Denies fatigue and Denies palpitations Adam/Lymph Reports easy bruising and Reports other (anemia) Aller/Immun Denies wheezing Physical Exam Vital Signs: Last Vital Signs Pulse 138 H 10/06/24 14:44 BP 120/80 10/06/24 14:44 BMI result Body Mass Index 26.7 Const General: cooperative, comfortable, no acute distress, alert, awake and anxious Nutritional Appearance: average body habitus Orientation/consciousness: patient oriented x3 Limitations: no limitations HEENT Head: Yes normocephalic and Yes atraumatic Neck Neck: Yes trachea midline, Yes supple and Yes no JVD Resp Effort & Inspection: normal respiratory effort Auscultation: clear to auscultation bilaterally Cardio Jugular venous distension: no JVD Rate: tachycardic Rhythm: abnormal rhythm irregularly irregular Heart sounds: S1 normal heart sound present, S2 normal heart sound present, no click, no gallops, no murmurs and no rubs GI Auscultation: normal bowel sounds Skin General skin exam: no rashes or lesions noted Neuro General: patient oriented x3 and no focal motor deficits Speech: No Abnormal speech present Extrem General: Yes no clubbing, cyanosis or edema Psych Appearance: grossly normal Speech and movement: Restless speech present Affect: Anxious affect present Office Procedures EKG Details: EKG shows atrial fibrillation rapid ventricular response with PVC with diffuse ST T wave changes most likely rate related 52489-Pasorxvmkjlbcxkqv, Complete Assessment & Plan Assessment & Plan (1) Persistent atrial fibrillation: Code(s): I48.19 - Other persistent atrial fibrillation Category: Medical Plan: New onset persistent atrial fibrillation in this elderly gentleman of unclear reason probably related to his anxiety/panic status. Has underlying structural heart disease that makes him prone to get atrial fibrillation. Given his rapid heart rate requires immediate rate control and then eventually rhythm control to prevent development of future congestive heart failure syndrome. This was discussed in details. Will need an echocardiogram to assess for LV systolic and diastolic function. Importance of rhythm control was discussed based on recent data. Will start him on Multaq 400 mg b.i.d. to help with rhythm control approach and with cardioversion. Will set him up for synchronized cardioversion in near future. Discussed risks, benefits, alternatives. Understands agrees. Importance of oral anticoagulation therapy uninterrupted with Eliquis was discussed. Continue Eliquis for lifelong. CHADSVASc score of at least 4. (2) CAD (coronary artery disease): Code(s): I25.10 - Atherosclerotic heart disease of [place] coronary artery without angina pectoris Category: Medical Plan: CAD with remote coronary artery bypass grafting with recent myocardial perfusion imaging appears to be within normal limits. Does not require any further workup at this point time unless he develops symptoms later. Continue aggressive vascular risk factor modification. Currently on full oral anticoagulation therefore would avoid aspirin therapy. Continue high-intensity statin therapy with target goal LDL closer to 55 mg/dL. Continue aggressive diabetes management through your office. Will follow up in the clinic in 6 weeks time, sooner p.r.n.. Thank you for allowing me to partake in his care Orders: Orders Cardioversion 2 Weeks I48.19 - Other persistent atrial fibrillation Medications: New dronedarone (Multaq) must administer with a meal/food 400 mg PO BID 60 tabs 5RF I48.19 - Other persistent atrial fibrillation Coding Level of Care Code New Pt Level 4 (28974) Complex EM visit Add On G2211 Diagnoses Persistent atrial fibrillation I48.19 CAD (coronary artery disease) I25.10 CPT Codes EKG - CPT: 82741-Sllqhvzoualeyrjgg, Complete ([id number])
== END 2024-10-06 15:35 | disposition home or self-care (01) ==
PROVIDERS: PCP Internal Medicine; Visit Provider Internal Medicine Cardiovascular Disease
DX: I48.19 Other persistent atrial fibrillation (principal); I25.10 Atherosclerotic heart disease of native coronary artery without angina pectoris
CPT/HCPCS: 93010; 99204

== ENCOUNTER → 2024-10-06 14:40 | Outpatient (BNVA) | payer OTHER, SELFPAY | PROVIDERS: PCP Internal Medicine; Visit Provider Internal Medicine Cardiovascular Disease | DX: I48.19 Other persistent atrial fibrillation (principal); I25.10 Atherosclerotic heart disease of native coronary artery without angina pectoris; Z79.01 Long term (current) use of anticoagulants; Z79.899 Other long term (current) drug therapy | CPT/HCPCS: 93005 ==

== ENCOUNTER → 2024-10-14 12:20 | Day surgery (SDC) | payer OTHER, SELFPAY ==
--- NOTE | 2024-10-12 13:17 | HO.ANESPROP2 ---
HPI - Anesthesia Eval Consult details Narrative: 78yo M for Cardioversion Eliquis for afib CAD s/p CABG x 4 Anesthesia Pre-Procedure Meds Is the patient on any of the following meds?: GLP1/DPP4 PMFSH Active Problems Active Problems: All Active Problems Persistent atrial fibrillation (Acute) Diabetes mellitus (Acute) PAC (premature atrial contraction) (Acute) Hyperlipidemia (Acute) CAD (coronary artery disease) (Acute) Past Medical History Medical History Persistent atrial fibrillation Diabetes mellitus PAC (premature atrial contraction) Hyperlipidemia CAD (coronary artery disease) Family History Family History Father No problems noted. Mother No problems noted. Surgical History Surgical History S/P CABG x 4 Meds Allergies Allergy/AdvReac Type Severity Reaction Status Date / Time No Known Allergies Allergy Verified 04/13/24 09:56 Home Medications ?Medication ?Instructions ?Recorded ?Confirmed ?Last Taken ?Type glipizide 5 mg tablet, extended mg PO 10/15/20 10/06/24 Unknown History release 24 hr pantoprazole 40 mg tablet,delayed 40 mg PO DAILY 10/15/20 10/06/24 Unknown History release apixaban 5 mg tablet (Eliquis) 5 mg PO BID 10/06/24 10/06/24 Unknown History buspirone 10 mg tablet 10 mg PO BID 10/06/24 10/06/24 Unknown History folic acid 20 mg capsule 20 mg PO DAILY 10/06/24 10/06/24 Unknown History indomethacin 50 mg capsule mg PO PRN 10/06/24 10/06/24 Unknown History levothyroxine 125 mcg tablet 125 mcg PO DAILY 10/06/24 10/06/24 Unknown History sitagliptin phosphate 100 mg 100 mg PO DAILY 10/06/24 10/06/24 Unknown History tablet (Januvia) vitamin B complex 1 cap PO DAILY 10/06/24 10/06/24 Unknown History Exam Narrative Narrative: EKG 09/2023 EKG Details: EKG shows atrial fibrillation rapid ventricular response with PVC with diffuse ST T wave changes most likely rate related Assessment and Plan Assessment Anesthesia Assessment: Chart Reviewed
--- NOTE | 2024-10-14 | ECG_ITS ---
Test Reason : PACU Blood Pressure : */* mmHG Vent. Rate : 60 BPM Atrial Rate : 60 BPM P-R Int : 216 ms QRS Dur : 108 ms QT Int : 478 ms P-R-T Axes : 21 21 96 degrees QTcB Int : 478 ms Sinus rhythm with 1st degree A-V block with occasional Premature ventricular complexes and Premature atrial complexes Incomplete left bundle branch block Nonspecific T wave abnormality Prolonged QT Abnormal ECG When compared with ECG of 13-Apr-2024 09:58, Premature ventricular complexes are now Present Premature atrial complexes are now Present Referred By: Mykel Hernandez Electronically Signed By: MARIETTA ALEJANDRO
[2024-10-14 08:03] VITALS: BMI 26.6
[2024-10-14 12:35] VITALS: BP 114/97; PULSE 67; RESP 18; TEMP 36.9; O2SAT 99; BMI 27.0
--- NOTE | 2024-10-14 12:53 | MHC.SHP ---
Pre-Procedural Eval Section A - 24 Hr Update-Section A only Date of Service: 10/14/24 The patient is an INPATIENT: No Changes since office visit: Yes Patient answered all questions; No Cold of Flu in the past 2 weeks, No New Medical Problems and No Changes in Medication The patient has been examined within 24 hours of the surgical procedure. The History & Physical has been completed within 30 days and I have reviewed it.: Yes Section B - Complete if H&P > 30 days Chief Complaint: Other persistent atrial fibrillation Allergies: Allergies Allergy/AdvReac Type Severity Reaction Status Date / Time No Known Allergies Allergy Verified 04/13/24 09:56 Plan I have reviewed the history and physical and performed a pertinent physical examination on my patient. No changes have occurred unless specified. Time Spent With Patient Time: Total time managing care of this patient today ____ minutes.
[2024-10-14 13:00] LABS: Glucose, Whole Blood 137 mg/dL (60-115)
[2024-10-14] MEDS: Lactated Ringers 1,000 ML 100 ML IVCONT (13:05)
--- OUTSIDE RECORDS SUMMARY | 2024-10-14 14:24 | XMS_ITS ---
Author Organization [facility] Address [address] [place] [address] Care Team Providers Care Leather Heel Breaster Name Role Phone Uri Simental MD Primary Care Provider Abundio Mccabe [phone] REASON FOR VISIT change in bowels,wt loss,early satiety Encounters Encounter Location Date Provider Diagnosis [facility] Out[place] [address] [facility] [place] [id number] 08/24/2024 Abundio Rahman PLAN OF TREATMENT No Information
--- OUTSIDE RECORDS SUMMARY | 2024-10-14 14:24 | XMS_ITS ---
Author Organization [facility] Address [address] [place] [address] Care Team Providers Care Video Specialist Name Role Phone Uri Simental MD Primary Care Provider Abundio Mccabe [phone] REASON FOR VISIT wt loss,early satiety,change in bowels Encounters Encounter Location Date Provider Diagnosis [facility] [place] [address] [facility] [place] [id number] 10/03/2024 Abundio Rahman PLAN OF TREATMENT No Information
--- OUTSIDE RECORDS SUMMARY | 2024-10-14 14:24 | XMS_ITS ---
Author Organization [facility] Address [address] [place] [address] Care Team Providers Care Cnc Grinder Name Role Phone Uri Simental MD Primary Care Provider Abundio Mccabe [phone] REASON FOR VISIT cancelling sep procedure. Encounters Encounter Location Date Provider Diagnosis [facility] [address] [place] [address] 09/07/2024 Abundio Rahman PLAN OF TREATMENT No Information
--- OUTSIDE RECORDS SUMMARY | 2024-10-14 14:24 | XMS_ITS | Patient Health Record ---
Author Organization [facility] Address [address] [place] [address] Care Team Providers Care Qualifications Examiner Name Role Phone Uri Simental MD Primary Care Provider Abundio Mccabe Unavailable [phone] ALLERGIES No Known Allergies REASON FOR REFERRAL No Information MEDICATIONS Medication SIG (Take, Route, Frequency, Duration) Notes Start Date End Date Status Vitamin D Active CoQ-10 Active Vitamin B Complex Ac tive LORazepam 0.5 MG Oral for 12 prn N ot-Taking Rosuvastatin Calcium 20 MG Oral for 90 Active Pantoprazole Sodium 40 MG Oral for 90 Active Aspirin 81 Active Januvia 100 MG Oral for 90 Act wilda glipiZIDE ER 5 MG Oral for 90 Active Levothyroxine Sodium 125 MCG Oral for 90 Active SOCIAL HISTORY Tobacco Use: Social History Observation Description Date Details (start date - stop date) Never Smoker NA - NA Sex Assigned At : Social History Observation Description Sex Assigned At Unknown Tobacco Use/Smoking Question Answer Notes Patient is a nonsmoker Alcohol Screen Question Answer Notes Did you have a drink containing alcohol in the p ast year? No Points 0 Interpretation Negative PROBLEMS Problem Type ICD Code Onset Dates Problem Status W/U Status Risk SNOMED Code Notes Problem Change in bowel habits (R19.4) Active confirmed Change in bowel habit (67762349) Problem Early satiety (R68.81) Active confirmed Early satiety (829263412) Problem Loss of weight (R63.4) Active confirmed Weight decreased (895119981) VITAL SIGNS Blood pressure diastolic 00 mm Hg 08/11/2024 Height 6 ft 2 in in 08/11/2024 Blood pressure systolic 00 mm Hg 08/11/2024 Weight 223 lbs 08/11/2024 BMI 28.63 kg/m2 08/11/2024 Encounters Encounter Location Date Provider Diagnosis [facility] [place] [address] [facility] [place], [place] [phone] 08/24/2024 Abundio Rahman [facility] [address] [facility] [place] [phone] 10/03/2024 Abundio Rahman [facility] [address] [place] [address] 08/11/2024 Abundio Rahman Change in bowel habits R19.4 ; Early satiety R68.81 and Loss of weight R63.4 [facility] [address] [place] [address] 08/11/2024 Abundio Rahman [facility] [address] [place] [address] 08/22/2024 Abundio Rahman [facility] [address] [place] [address] 09/07/2024 Abundio Rahman ASSESSMENTS Encounter Date Diagnosis Assessment Notes Treatment Notes Treatment Clinical Notes 08/11/2024 Change in bowel habits (ICD-10 - R19.4) DO NOT TAKE THE JANUVIA FOR 3 DAYS BEFORE THE PROCEDURES DO NOT TAKE THE ASPIRIN ON THE MORNING OF THE PROCEDURES DO NOT TAKE THE GLIPIZIDE THE NIGHT BEFORE NOR ON THE MORNING OF THE PROCEDURES 08/11/2024 Early satiety (ICD-10 - R68.81) 08/11/2024 Loss of weight (ICD-10 - R63.4) PLAN OF TREATMENT Future Test Test Name Order Date UPPER GI ENDOSCOPY 08/11/2024 COLONOSCOPY 08/11/2024 Insurance Providers Payer Name Payer Address Payer Phone Subscriber Number Group Number Insured Name Patient Relationship to Insured Coverage Start Date Coverage End Date [facility] [address] [place] [phone] [id number] BREA GAMA Self - patient is the insured MEDICAL (GENERAL) HISTORY Medical History History ICD Code Hypothyroidism NIDDM Coronary artery disease-prev ious CABG--had been seeing , but is scheduled for a followup appointment with [facility] in 08/2024 after a nuclear stress test was done there in July, Elevated Cholesterol Gout Chronic renal insufficiency COVID Denies [place],CVA,Lung disease,renal disease Hypertension Hyperlipidemia Surgical History Surgery Date(Month/Year) Hernia repair x 2 Nasal polyps CABG 4V in 2009 Cataracts bilaterally
== END ==
LOC: HO.SSS 12:21
PROVIDERS: PCP Internal Medicine; Visit Provider Internal Medicine Cardiovascular Disease
PROC: 5A2204Z Restoration of Cardiac Rhythm, Single (ICD-10-PCS; principal; 2024-10-14 14:00)
DX: I48.19 Other persistent atrial fibrillation (principal); Z53.8 Procedure and treatment not carried out for other reasons; E11.9 Type 2 diabetes mellitus without complications; I25.10 Atherosclerotic heart disease of native coronary artery without angina pectoris; Z95.1 Presence of aortocoronary bypass graft; Z79.01 Long term (current) use of anticoagulants; Z79.84 Long term (current) use of oral hypoglycemic drugs; Z79.899 Other long term (current) drug therapy
CPT/HCPCS: 82947; 93005

== ENCOUNTER → 2024-10-14 15:01 | Outpatient (BNV) | payer OTHER, SELFPAY | PROVIDERS: PCP Internal Medicine; Visit Provider Internal Medicine | DX: I44.0 Atrioventricular block, first degree (principal); I49.3 Ventricular premature depolarization; I44.7 Left bundle-branch block, unspecified; I45.81 Long QT syndrome; I49.1 Atrial premature depolarization | CPT/HCPCS: 93010 ==

== ENCOUNTER → 2024-10-18 14:47 | Outpatient (REF) | payer OTHER, SELFPAY ==
--- NOTE | 2024-10-18 14:50 | CA_ITS ---
Transthoracic Echocardiogram Patient (Last, First, Middle): aJgdish Montejo, Gender: Male Date of : 1945 Age: 78 Procedure Date: 10/18/2024 Procedure Type: Transthoracic Echocardiogram Location: OP Height: 187.96 cm Weight: 95.71 kg BSA: 2.22 m2 Heart Rate: bpm BP: 130 / 80 mmHg Forest Engineer: TO Referring MD: Mykel Hernandez MD Symptoms: I48.19 - Other persistent atrial fibrillation Study Quality: Fair ECG Rhythm: Sinus Conclusions: - The left ventricular systolic function is low normal. The visually estimated ejection fraction is between 50-55%. - There is moderate calcification of the aortic valve. There is mild aortic valve stenosis. Findings Procedure Information The study quality is limited by the patients inability to tolerate the test. Left Ventricle Normal left ventricular cavity size. The left ventricular systolic function is low normal. The visually estimated ejection fraction is between 50-55%. There is no evidence of regional wall motion abnormalities. Diastolic function is normal for age. There is mild septal asymmetric hypertrophy. Right Ventricle Moderately increased right ventricular cavity size. There is normal right ventricular systolic function. Atria The left atrium is severely dilated. The right atrium is normal in size. Aortic Valve There is moderate calcification of the aortic valve. There is mild aortic valve stenosis. There is no aortic valve regurgitation. Mitral Valve There is mild anterior mitral leaflet thickening. There is mild mitral annular calcification. There is trace mitral valve regurgitation. There is no mitral valve stenosis. Pulmonic Valve There is mild pulmonic valve regurgitation. Tricuspid Valve There is trace tricuspid valve regurgitation. There is no evidence of pulmonary hypertension. Great Vessels The asc aorta is normal in size. Venous The inferior vena cava was not well visualized. The inferior vena cava is normal in size. Pericardium/Pleural There is no evidence of pericardial effusion. Prior Study Comparison Changes noted compared to prior study dated: 06/21/2014. LVEF slightly lower. Calcification of aortic valve. Measurements 2D Linear Measurements IVSd: 1.12 0.6-0.9/0.6-1.0 cm LVIDd: 5.79 3.9-5.3/4.2-5.9 cm LVIDd Index: 2.61 2.4-3.2/2.2-3.1 cm/m2 LVIDs: 4.21 2.0-3.6 cm LVPWd: 0.78 0.7-1.1 cm LA Diam: 5.40 2.7-3.8/3.0-4.0 cm LAIDs Index: 2.43 1.5-2.3 cm/m2 LV Mass: 271.45 67-162/88-224 g LV Mass Index: 122.27 43-95/49-115 g/m2 LVOT Diam: 2.40 3.0+(-)1.3 cm 2D Systolic Function EF 4C: 46.80 >55% EF 2C: 52.10 >55% EF BiP: 47.90 >55% Mitral Valve MV Pk E: 0.57 MV PK A: 0.55 MV Decel Time: 252.00 E/A: 1.00 E'Lateral: 11.00 E'Medial: 3.92 E/E' Med: 14.60 E/E' Lat: 5.20 PHT: 74.00 MVA PHT: 2.97 Decel [place]: 2.28 Aortic Valve AoV Pk Judson: 1.97 AoV Mn Judson: 1.47 AoV VTI: 0.50 AoV Pk Grad: 16.00 Aov Mn Grad: 9.00 DEANNA Cont.VTI: 1.70 LVOT LVOT Pk Judson: 0.78 LVOT Mn Judson: 0.59 LVOT VTI: 0.19 LVOT Pk Grad: 2.00 LVOT Mn Grad: 1.00 LVOT Diam: 2.40 LVOT Area: 4.52 Diastolic Function MV Pk E: 0.57 MV Pk A: 0.55 E/A: 1.00 E'Medial: 3.92 E/E' Med: 14.60 E' Laterial: 11.00 E/E' Lat: 5.20 Right Ventricle TAPSE (mm): 20.90 TVS' Judson: 12.20 Tricuspid Valve TR Pk Judson: 2.76 TR Pk Grad: 30.00 RA Press: 3.00 RVSP: 33.00 Great Vessels Aorta Sinus of Valsalva: 3.93 2.0-3.5 cm Ao Asc: 3.70 2.1-3.4 cm Updated in Other Vendor System with Status of Final Jose Giraldo MD electronically signed on 10/20/2024 10:59:43 AM with status of Final
--- OUTSIDE RECORDS SUMMARY | 2024-10-18 15:44 | XMS_ITS ---
Author Organization [facility] Address [address] [place] [address] Care Team Providers Care Ultrasonic Seaming Machine Operator Name Role Phone Uri Simental MD Primary Care Provider Abundio Mccabe [phone] REASON FOR VISIT change in bowels,wt loss,early satiety Encounters Encounter Location Date Provider Diagnosis [facility] Outpatient [address] [facility] [place] [phone] 08/24/2024 Abundio Rahman PLAN OF TREATMENT No Information
--- OUTSIDE RECORDS SUMMARY | 2024-10-18 15:44 | XMS_ITS ---
Author Organization [facility] Address [address] [place] [address] Care Team Providers Care Weaver Needle Loom Name Role Phone Uri Simental MD Primary Care Provider Abundio Mccabe [phone] REASON FOR VISIT wt loss,early satiety,change in bowels Encounters Encounter Location Date Provider Diagnosis [facility] [place] [address] [facility] [place] [id number] 10/03/2024 Abundio Rahman PLAN OF TREATMENT No Information
--- OUTSIDE RECORDS SUMMARY | 2024-10-18 15:44 | XMS_ITS ---
Author Organization [facility] Address [address] [place] [address] Care Team Providers Care Chief Communications Officer Name Role Phone Uri Simental MD Primary Care Provider Abundio Mccabe [phone] REASON FOR VISIT cancelling sep procedure. Encounters Encounter Location Date Provider Diagnosis [facility] [address] [place] [address] 09/07/2024 Abundio Rahman PLAN OF TREATMENT No Information
--- OUTSIDE RECORDS SUMMARY | 2024-10-18 15:44 | XMS_ITS | Patient Health Record ---
Author Organization [facility] Address [address] [place] [address] Care Team Providers Care Files Supervisor Name Role Phone Uri Simental MD Primary Care Provider Abundio Mccabe Unavailable [phone] ALLERGIES No Known Allergies REASON FOR REFERRAL [...] (R19.4) Active confirmed Change in bowel habit (03210902) Problem Early satiety (R68.81) Active confirmed Early satiety (089263115) Problem Loss of weight (R63.4) Active confirmed Weight decreased (216563595) VITAL SIGNS Blood pressure diastolic 00 mm Hg 08/11/2024 Height 6 ft 2 in in 08/11/2024 Blood pressure systolic 00 mm Hg 08/11/2024 Weight 223 lbs 08/11/2024 BMI 28.63 kg/m2 08/11/2024 Encounters Encounter Location Date Provider Diagnosis [facility] Outpatient [address] [facility] [place], [place] [phone] 08/24/2024 Abundio Rahman [facility] [place] [phone] 10/03/2024 Abundio Rahman [facility] [address] [place] [address] 08/11/2024 Abundio Rahman Change in bowel habits R19.4 ; Early satiety R68.81 and Loss of weight R63.4 [facility] [address] [place] [phone] 08/11/2024 Abundio Rahman [facility] [address] [place] [address] 08/22/2024 Abundio Rahman [facility] [address] [place] [phone] 09/07/2024 Abundio Rahman ASSESSMENTS Encounter Date Diagnosis [...] Insured Coverage Start Date Coverage End Date [facility] [address] [place] [phone] [id number] BREA GAMA Self - patient is the insured MEDICAL (GENERAL) HISTORY Medical History History ICD Code Hypothyroidism NIDDM Coronary artery disease-prev ious CABG--had been seeing , but is scheduled for a followup appointment with [facility] in 08/2024 after a nuclear stress test was done there in July, Elevated Cholesterol Gout Chronic renal insufficiency COVID Denies [place],CVA,Lung disease,renal disease Hypertension Hyperlipidemia Surgical History Surgery Date(Month/Year) Hernia repair x 2 Nasal polyps CABG 4V in 2009 Cataracts bilaterally
== END ==
LOC: HO.CARD 14:47
PROVIDERS: PCP Internal Medicine; Visit Provider Internal Medicine Cardiovascular Disease
DX: I48.19 Other persistent atrial fibrillation (principal)
CPT/HCPCS: 93306

== ENCOUNTER 2024-10-18 16:09 | Outpatient (REF) | payer OTHER, SELFPAY ==
[2024-10-18 17:43] LABS: Anion Gap 12 (12-20); Blood Urea Nitrogen 20 mg/dL (9-16); Calcium 9.4 mg/dL (8.4-10.2); Carbon Dioxide 26 mmol/L (22-29); Chloride 108 mmol/L (96-108); Estimated Glomerular Filt Rate > 60; Glucose Random 87 mg/dL (60-115); Potassium 4.1 mmol/L (3.3-5.1); Sodium 142 mmol/L (135-145)
[2024-10-18 17:46] LABS: B Type Natriuretic Peptide 233 pg/mL (<100)
== END 2024-10-18 16:10 | disposition home or self-care (01) ==
LOC: HO.LAB 16:09
PROVIDERS: PCP Internal Medicine; Visit Provider Internal Medicine Cardiovascular Disease
DX: I48.19 Other persistent atrial fibrillation (principal)
CPT/HCPCS: 36415; 80048; 83880

== ENCOUNTER 2024-10-31 14:34 | Outpatient (AMB) | payer OTHER, SELFPAY ==
--- NOTE | 2024-10-31 14:42 | MHC.OFFVIS ---
Vital Signs 10/31/24 14:43 Height 6 ft 2 in Weight 216 lb 0.848 oz BMI 27.7 BP 110/70 Blood Pressure Location Lt brachial Position Sitting Pulse 70 Intake Visit Reasons: follow up/ cardioversion Intake Note: Follow-up post cardioversion with ekg feeling better Mail Clerk Required: No Front End Web Developer: Front End Web Developer Present Accompanied by: Spouse Allergies No Known Allergies Allergy (Verified 04/13/24 09:56) Medication List - Last Reconciled 10/31/24 by Mykel Hernandez MD apixaban (Eliquis) 5 mg PO BID cholecalciferol (vitamin D3) 25 mcg PO DAILY folic acid 20 mg PO DAILY furosemide (Lasix) 20 mg PO DAILY PRN glipizide ER 5 mg PO DAILY levothyroxine 125 mcg PO DAILY mirtazapine 7.5 mg PO BEDTIME pantoprazole 40 mg PO DAILY rosuvastatin 20 mg PO DAILY 90 days sitagliptin phosphate (Januvia) 100 mg PO DAILY vitamin B complex 1 cap PO DAILY HPI Comments Details: Quoc comes for follow-up. He is status post cardioversion. Following cardioversion he was complaining of shortness of breath and we did a BNP, he was on Multaq at that time. BNP was elevated in the 200 range. We stopped the Multaq start him on Lasix for few days. Since then he said he has been feeling very well. Shortness of breath is better. Also has per his Maria E he has been sleeping a lot better on mirtazapine. Since getting good rest he has also become less fidgety and anxious and he is doing very well overall. Denies any orthopnea, PND. Denies any episodes of atrial fibrillation although he had no clear symptoms of palpitations at that time. He denies any orthopnea, PND. No exertional chest pain. No bleeding issues or neurologic events. [facility] Medical History Persistent atrial fibrillation Paroxysmal atrial fibrillation Anxiety Depression Cataract Hernia Diabetes mellitus PAC (premature atrial contraction) Hyperlipidemia CAD (coronary artery disease) Surgical History History of hernia surgery S/P CABG x 4 Family History Father No problems noted. Mother No problems noted. Social History Patient Tobacco Use Status: Former Tobacco user Review of Systems Const Denies chills, Denies fatigue, Denies fever(s), Denies frequent falls, Denies weakness, Denies weight gain and Denies weight loss ENT Denies dizziness Card Denies chest pain, Denies leg edema, Denies lightheadedness, Denies palpitations, Denies dyspnea, Denies dyspnea on exertion, Denies orthopnea and Denies other (loss of consciousness) Resp Denies cough, Denies dyspnea and Denies dyspnea on exertion GI Denies hematochezia and Denies change in stool character Musc Denies abnormal gait, Denies muscle weakness, Denies numbness, Denies radiating pain into limb and Denies tingling Neuro Denies Abnormal speech present, Denies abnormal gait, Denies dizziness, Denies frequent falls, Denies numbness, Denies tingling and Denies weakness Endo Denies fatigue and Denies palpitations Physical Exam Vital Signs: Last Vital Signs Pulse 70 10/31/24 14:43 BP 110/70 10/31/24 14:43 BMI result Body Mass Index 27.7 Const General: cooperative, comfortable, no acute distress, alert, awake and anxious Nutritional Appearance: average body habitus Orientation/consciousness: patient oriented x3 Limitations: no limitations HEENT Head: Yes normocephalic and Yes atraumatic Neck Neck: Yes trachea midline, Yes supple and Yes no JVD Resp Effort & Inspection: normal respiratory effort Auscultation: clear to auscultation bilaterally Cardio Jugular venous distension: no JVD Rate: regular rate Rhythm: regular rhythm and abnormal rhythm irregularly irregular Heart sounds: S1 normal heart sound present, S2 normal heart sound present, no click, no gallops, Murmur heart sound present systolic early and no rubs GI Auscultation: normal bowel sounds Skin General skin exam: no rashes or lesions noted Neuro General: patient oriented x3 and no focal motor deficits Speech: No Abnormal speech present Extrem General: Yes no clubbing, cyanosis or edema Psych Appearance: grossly normal Speech and movement: Restless speech present Affect: Anxious affect present Office Procedures EKG Details: EKG shows normal sinus rhythm with first-degree AV block with poor R-wave progression with nonspecific ST changes 91195-[id number], Complete Assessment & Plan Assessment & Plan (1) Paroxysmal atrial fibrillation: Code(s): I48.0 - Paroxysmal atrial fibrillation Category: Medical Plan: Paroxysmal atrial fibrillation has converted to sinus rhythm maintain rhythm without any oral antiarrhythmic drug therapy at this point time. Feeling a lot better although not able to describe. He had no typical symptoms of atrial fibrillation. Will continue pursue rhythm control approach. Advised to invest in smart phone based EKG device to assess for development of atrial fibrillation. Continue full oral anticoagulation, currently on Eliquis 5 mg b.i.d.. CHADSVASc score of at least 6. Importance of oral anticoagulation therapy was discussed. Avoidance of stimulants was discussed advised to call me with any recurrent atrial fibrillation symptoms. (2) CAD (coronary artery disease): Code(s): I25.10 - Atherosclerotic heart disease of [place] coronary artery without angina pectoris Category: Medical Plan: CAD with remote coronary artery bypass grafting. Recent development of atrial fibrillation symptoms which are concerning for possible myocardial ischemia. Would suggest an exercise myocardial perfusion imaging to evaluate for the same. Continue full oral anticoagulation with apixaban. Hold off on aspirin therapy to reduce bleeding risk. Continue aggressive vascular risk factor modification including high-intensity statin therapy with target goal LDL closer to 55 mg/dL. Aggressive control of diabetes goal hemoglobin A1c less than 7% needs to be pursued. (3) Elevated brain natriuretic peptide (BNP) level: Code(s): R79.89 - Other specified abnormal findings of blood chemistry Category: Medical Plan: Recent elevation of BNP after cardioversion the setting of use of Multaq although portends risk for development of heart failure in the future. Clinically appears to be euvolemic and well compensated. Currently on Lasix therapy which has been terminated. Follow-up BMP and BNP today. Myocardial perfusion imaging as above. Signs and symptoms of heart failure were discussed. Continue aggressive management of coronary disease, atrial fibrillation. Will follow up in the clinic in 2 months time, sooner p.r.n.. Thank you for allowing me to partake in his care Orders: Orders B Type Natriuretic Peptide Today I48.0 - Paroxysmal atrial fibrillation CA stress test Today I25.10 - Atherosclerotic heart disease of [place] coronary artery without angina pectoris NM cardiolite stress test 2 Weeks I25.10 - Atherosclerotic heart disease of [place] coronary artery without angina pectoris, R07.9 - Chest pain, unspecified Basic Metabolic Panel Today I48.0 - Paroxysmal atrial fibrillation Medications: Changed From furosemide (Lasix) Pt to take q tab daily for a few days. Extra ones to have on hand. 20 mg PO DAILY 20 tabs 0RF To furosemide (Lasix) Pt to take q tab daily for a few days. Extra ones to have on hand. 20 mg PO DAILY PRN Coding Level of Care Code Est Pt Level 4 (38436) Complex EM visit Add On G2211 Diagnoses Paroxysmal atrial fibrillation I48.0 CAD (coronary artery disease) I25.10 Elevated brain natriuretic peptide (BNP) level R79.89 CPT Codes EKG - CPT: 76496-Wnpuqzlsvnabrohti, Complete ([id number])
[2024-10-31 14:43] VITALS: BP 110/70; PULSE 70; BMI 27.7
== END 2024-10-31 15:12 | disposition home or self-care (01) ==
PROVIDERS: PCP Internal Medicine; Visit Provider Internal Medicine Cardiovascular Disease
DX: I48.0 Paroxysmal atrial fibrillation (principal); I25.10 Atherosclerotic heart disease of native coronary artery without angina pectoris; R79.89 Other specified abnormal findings of blood chemistry
CPT/HCPCS: 93010; 99214

== ENCOUNTER 2024-10-31 14:34 | Outpatient (REF) | payer OTHER, SELFPAY ==
[2024-10-31 16:34] LABS: B Type Natriuretic Peptide 113 pg/mL (<100)
[2024-10-31 16:48] LABS: Anion Gap 10 (12-20); Blood Urea Nitrogen 23 mg/dL (9-16); Calcium 9.3 mg/dL (8.4-10.2); Carbon Dioxide 28 mmol/L (22-29); Chloride 108 mmol/L (96-108); Estimated Glomerular Filt Rate > 60; Glucose Random 93 mg/dL (60-115); Potassium 4.1 mmol/L (3.3-5.1); Sodium 142 mmol/L (135-145)
== END 2024-10-31 14:35 | disposition home or self-care (01) ==
LOC: HO.LAB 14:34
PROVIDERS: PCP Internal Medicine; Visit Provider Internal Medicine Cardiovascular Disease
DX: I48.0 Paroxysmal atrial fibrillation (principal); I25.10 Atherosclerotic heart disease of native coronary artery without angina pectoris; I44.0 Atrioventricular block, first degree
CPT/HCPCS: 36415; 80048; 83880; 93005

== ENCOUNTER 2025-01-17 14:38 | Outpatient (AMB) | payer OTHER, SELFPAY ==
[2025-01-17 14:40] VITALS: BP 126/74; PULSE 70; BMI 31.4
--- NOTE | 2025-01-17 14:40 | MHC.OFFVIS ---
Vital Signs 01/17/25 14:40 Height 6 ft 2 in Weight 244 lb 11.41 oz BMI 31.4 BP 126/74 Blood Pressure Location Lt brachial Position Sitting Pulse 70 Intake Visit Reasons: 2m follow up Intake Note: 2 month follow-up feeling good has been very active Director Of Business Services Required: No Allergies No Known Allergies Allergy (Verified 04/13/24 09:56) Medication List - Last Reconciled 01/17/25 by Mykel Hernandez MD apixaban (Eliquis) 5 mg PO BID cholecalciferol (vitamin D3) 25 mcg PO DAILY folic acid 20 mg PO DAILY furosemide (Lasix) 20 mg PO DAILY PRN glipizide ER 5 mg PO DAILY levothyroxine 125 mcg PO DAILY mirtazapine 7.5 mg PO BEDTIME pantoprazole 40 mg PO DAILY rosuvastatin 20 mg PO DAILY 90 days sitagliptin phosphate (Januvia) 100 mg PO DAILY vitamin B complex 1 cap PO DAILY HPI Comments Details: Quoc comes for follow-up. He has been doing extremely well from cardiac perspective. He has been very active more recently. Denies any worsening shortness of breath. Denies any orthopnea syncope, PND, leg edema. He was lot more energy. Denies any exertional chest pain. He was declined to pursue stress test at this point time. Taking all his medications. He has not noticed any prolonged irregular or fast heart rate. He has gained good amount of weight. He is currently off mirtazapine [facility] Medical History Persistent atrial fibrillation Paroxysmal atrial fibrillation Anxiety Depression Cataract Hernia Diabetes mellitus PAC (premature atrial contraction) Hyperlipidemia CAD (coronary artery disease) Surgical History History of hernia surgery S/P CABG x 4 Family History Father No problems noted. Mother No problems noted. Social History Patient Tobacco Use Status: Former Tobacco user Review of Systems Const Denies chills, Denies fatigue, Denies fever(s), Denies frequent falls, Denies weakness, Denies weight gain and Denies weight loss ENT Denies dizziness Card Denies chest pain, Denies leg edema, Denies lightheadedness, Denies palpitations, Denies dyspnea, Denies dyspnea on exertion, Denies orthopnea and Denies other (loss of consciousness) Resp Denies cough, Denies dyspnea and Denies dyspnea on exertion GI Denies hematochezia and Denies change in stool character Musc Denies abnormal gait, Denies muscle weakness, Denies numbness, Denies radiating pain into limb and Denies tingling Neuro Denies Abnormal speech present, Denies abnormal gait, Denies dizziness, Denies frequent falls, Denies numbness, Denies tingling and Denies weakness Endo Denies fatigue and Denies palpitations Physical Exam Vital Signs: Last Vital Signs Pulse 70 01/17/25 14:40 BP 126/74 01/17/25 14:40 BMI result Body Mass Index 31.4 Const General: cooperative, comfortable, no acute distress, alert, awake and anxious Nutritional Appearance: overweight Orientation/consciousness: patient oriented x3 Limitations: no limitations HEENT Head: Yes normocephalic and Yes atraumatic Neck Neck: Yes trachea midline, Yes supple and Yes no JVD Resp Effort & Inspection: normal respiratory effort Auscultation: clear to auscultation bilaterally Cardio Jugular venous distension: no JVD Rate: regular rate Rhythm: regular rhythm and abnormal rhythm irregularly irregular Heart sounds: S1 normal heart sound present, S2 normal heart sound present, no click, no gallops, Murmur heart sound present systolic early and no rubs GI Auscultation: normal bowel sounds Skin General skin exam: no rashes or lesions noted Neuro General: patient oriented x3 and no focal motor deficits Speech: No Abnormal speech present Extrem General: Yes no clubbing, cyanosis or edema Psych Appearance: grossly normal Speech and movement: Restless speech present Affect: Anxious affect present Office Procedures EKG Details: EKG shows normal sinus rhythm with small Q-wave in lead 3 as well as poor R-wave progression with nonspecific ST T wave changes 80292-Ihnezwbxvqqkxrwmg, Complete Assessment & Plan Assessment & Plan (1) Paroxysmal atrial fibrillation: Code(s): I48.0 - Paroxysmal atrial fibrillation Category: Medical Plan: Paroxysmal atrial fibrillation, status post cardioversion maintaining rhythm. Has done extremely well with rhythm control approach. At this point time will continue pursue rhythm control approach advised to call me with any worsening symptoms as well as irregular heartbeat may require antiarrhythmic drug therapy and repeat cardioversion and/or ablation. This was discussed with him. Continue full oral anticoagulation, currently on Eliquis 5 mg b.i.d.. Semi annual renal function test should be performed. Avoidance of stimulants was discussed. Stress mitigation strategies was discussed. (2) Elevated brain natriuretic peptide (BNP) level: Code(s): R79.89 - Other specified abnormal findings of blood chemistry Category: Medical Plan: Elevated BNP with findings suggestive of early heart failure in the setting of persistent atrial fibrillation. Symptoms and reversed since maintaining rhythm. Continue pursue rhythm control approach. He was Lasix as need be. No signs or symptoms of heart failure on today's exam. Consider switching Januvia to Jardiance or Farxiga therapy. (3) CAD (coronary artery disease): Code(s): I25.10 - Atherosclerotic heart disease of [place] coronary artery without angina pectoris Category: Medical Plan: CAD with remote coronary artery bypass grafting. Recommend to pursue stress test although he wants to currently wait and watch. He wants to defer it. Continue full oral anticoagulation with apixaban and would avoid aspirin therapy to reduce bleeding risk. Continue aggressive vascular risk factor modification with aggressive control of diabetes goal hemoglobin A1c less than 7%. Continue high-intensity statin therapy with target goal LDL less than 60 mg/dL. Will follow up in the clinic in 6 months time, sooner p.r.n.. Thank you for allowing me to partake in his care Coding Level of Care Code Est Pt Level 4 (69900) Complex EM visit Add On G2211 Diagnoses Paroxysmal atrial fibrillation I48.0 Elevated brain natriuretic peptide (BNP) level R79.89 CAD (coronary artery disease) I25.10 CPT Codes EKG - CPT: 79458-Iieyrwomktzgccaiw, Complete ([id number])
--- OUTSIDE RECORDS SUMMARY | 2025-01-17 17:17 | XMS_ITS ---
Author Organization [facility] Address [address] [place] [address] Care Team Providers Care Mold Breaker Name Role Phone Uri Simental MD Primary Care Provider Unavaila Jarret Santa [phone] REASON FOR VISIT bought ALAPLEX Encounters Encounter Location Date Provider Diagnosis [address] [address] 11/22/2024 Jarret Ford Plan Of Treatment Next Appt Details Provider Name:Jarret Ford , 02/21/2025 11:15:00 AM, [address] [place], [address], Progress Notes * Jagdish GAMA MDOB:1945 (78 yo M)Acc No.[id number]:11/22/2024 Patient:?Jagdish GAMA :1945???Age:78 Y???Sex:Male Address:[address] [place] [address], [address] * true * Date:? Generated for Printi liana/Molly/eTransmitting on:?01/17/2025 05:17 PM EDT
--- OUTSIDE RECORDS SUMMARY | 2025-01-17 17:19 | XMS_ITS ---
Author Organization [facility] Address [address] [place] [address] Care Team Providers Care Medicaid Biller Name Role Phone Uri Simental MD Primary Care Provider Unavaila Jarret Santa Unavailable [phone] Nola Shaikh Unavailable [phone] REASON FOR VISIT seen sooner Encounters Encounter Location Date Provider Diagnosis [address] [address] 12/15/2024 Nola Shaikh Plan Of Treatment Next Appt Details Provider Name:Jarret Ford , 02/21/2025 11:15:00 AM, [address] [place] [address], [phone], Progress Notes * Jagdish GAMA MDOB:1945 (79 yo M)Acc No.[id number]:12/15/2024 Progress Notes Patient:?Jagdish GAMA Provider:?Nola Shaikh DPM :1945???Age:79 Y???Sex:Male Hemrilo e:12/15/2024 Address:[address] [place], [place] [id number] Pcp:Uri Simental MD Subjective: * Chief Complaints: * ???1. Seen sooner. * Medical History:? Objective: * Vitals:? Assessment: Plan: * Treatment: * Images: * The named appointment provid er may or may not be the originator of this progress note, and it is not deemed complete until electronically signed by the appointment provider. Sign off status: Pending * Provider:Papito Shaikh DPM Date:?2024 Generated for Bessie gaines/Molly/Chilo on:?01/17/2025 05:19 PM EDT
--- OUTSIDE RECORDS SUMMARY | 2025-01-17 17:19 | XMS_ITS | Patient Health Record ---
Author Organization [facility] Address [address] [place] [address] Care Team Providers Care Gas Substation Operator Name Role Phone Uri Simental MD Primary Care Provider UnavailJarret Price Unavailable [phone] Black, Nola Unavailable [phone] Allergies Allergen (clinical drug ingredient) Drug/Non Drug Allergy documented on EMR Reaction Allergy Type Onset Date Status General/spinal (uncoded) Unknown Allergy Active sulfamethoxazole / trimethoprim Bactrim Unknown Drug Allergy Active Ceftin Unknown Drug Allergy Active meperidine Demerol Unknown Drug Allergy Active aspirin Aspirin Unknown Drug Allergy Active codeine Codeine Unknown Drug Allergy Active cortisone Cortisone Unknown Drug Allergy Active morphine Morphine Unknown Drug Allergy Active Results Component Value Reference Range Notes HEMOGLOBIN A1C (GLYCOHEMOGLO BIN) Reviewed date:11/15/2024 01:17:15 PM Interpretation: Performing Lab: Notes/Report: HEMOGLOBIN A1C % (HH) 7.2 Reason For Referral No Information Medications Medication SIG (Take, Route, Frequency, Duration) Notes Start Date End Date Status Folic Acid Active Rosuvastatin Calcium 20 MG 1 tablet Orally Once a day Active Eliquis 5 MG as directed Orally Active busPIRone HCl 10 MG 1 tablet Orally Twic e a day Active Vitamin B Complex Ac tive Multi Vitamin - 1 tablet Orally Once a day Active Levothyroxine Sodium 125 MCG 1 tablet in the morning on an empty stomach Orally Once a day Active Extra Depth Orthopedic Shoes (1 Pair) with Customized Heat Molded Multidensity Innersoles (3 Pair) as directed Dx: NIDDM/Polyneuropathy (E11.42), Hammertoe Foot Deformity (M20.41,M20.42), Preulcerative Skin Lesion(s) (L85.1 11/15/2024 Active glipiZIDE 5 MG 1 tablet 30 minutes before breakfast Orally Once a day Active Januvia 100 MG 1 tablet Orally Once a day Active Pantoprazole Sodium 40 MG 1 tablet 1/2 t o 1 hour before morning meal Orally Once a day Active Social History Tobacco Use: Social History Observation Description Date Details (start date - stop date) Never Smoker NA - NA Tobacco use other than smoking: Question Answer Notes Are you an other tobacco user? No Tobacco Control (Standard) Question Answer Notes Tobacco use: Nonsmoker Additional Findings: Tobacco non-user Current no nsmoker AUDIT-C (Standard) Question Answer Notes Did you have a drink contain ing alcohol in the past year? Yes How often did you have six o r more drinks on one occasion in the past year? Declined to specify (0 point) How many drinks did you have on a typical day when you were drinking in the past year? Declined to specify (0 point) How often did you have a dri nk containing alcohol in the past year? Declined to specify (0 point) Points 0 Interpretation Negative Problems Problem Type SNOMED Code ICD Code Onset Dates Problem Status W/U Status Risk Notes Problem Acquired hammer toe of right foot (7506113904456549 ) Other hammer toe(s) (acquired), right foot (M20.41) Active confirmed Problem Acquired hammer toe of left foot (5914740530597530 ) Other hammer toe(s) (acquired), left foot (M20.42) Active confirmed Problem Polyneuropathy due to type 2 diabetes mellitus (797738592) Type 2 diabetes mellitus with diabetic polyneuropathy (E11.42) Active confirmed Vital Signs Blood pressure diastolic 70 mm Hg 11/15/2024 Height 6 ft 2inch in 11/15/2024 Blood pressure systolic 130 mm Hg 11/15/2024 Weight 220 lbs 11/15/2024 BMI 28.24 kg/m2 11/15/2024 Procedures Procedure Date Ordered Date Performed Result Body Sit e 23796-YVDELGT NAIL, 6 OR MORE 11/15/2024 N/A 30393-VKVD SKIN LESIONS, OVER 4 11/15/2024 N/A Encounters Encounter Location Date Provider Diagnosis [facility] [address] [address] 11/15/2024 Jarret Logan Type 2 diabetes mellitus with diabetic polyneuropathy E11.42 ; Tinea unguium B35.1 ; Other hammer toe(s) (acquired), right foot M20.41 and Other hammer toe(s) (acquired), left foot M20.[address] [facility] [address] 11/15/2024 Jarret Ford [facility] [address] 11/22/2024 Jarret Logan [facility] [address] 12/15/2024 Jarretclark MeyerLogan Assessments Encounter Date Diagnosis (ICD Code) Assessment Notes Treatment Notes Treatment Clinical Notes Section Notes 11/15/2024 Type 2 diabetes mellitus with diabetic polyneuropathy (ICD-10 - E11.42) 11/15/2024 Tinea unguium (ICD-10 - B35.1) 11/15/2024 Other hammer toe(s) (acquired), right foot (ICD-10 - M20.41) Patient Educated with: DIABETIC FOOT CARE INSTRUCTIONS. pdf (DIABETIC FOOT CARE INSTRUCTIONS. pdf) 11/15/2024 Other hammer toe(s) (acquired), left foot (ICD-10 - M20.42) Plan Of Treatment Pending Test Test Name Order Date 41247-[id number] NAIL, 6 OR MORE 11/15/2024 60093-IXQP SKIN LESIONS, OVER 4 11/15/19 Next Appt Details Provider Name:Jarret Bassam Logan , 02/21/2025 11:15:00 AM, [address] [place] [address], [phone], Insurance Providers Payer Name Payer Address Payer Phone Subscriber Number Group Number Insured Name Patient Relationship to Insured Coverage Start Date Coverage End Date [facility] [address] [place] [address] [id number] Jagdish Montejo Self - patient is the insured 2 Medical (General) History Medical History History ICD Code Anxiety Arthritis covid-19 Depression type II diabetes Gout Heart disease - A-FIB Kidney disease Numbness Poor circulation Reflux sinusitis thyroid Chicken pox Hypercholesterolemia
--- OUTSIDE RECORDS SUMMARY | 2025-01-17 17:19 | XMS_ITS ---
Author Organization [facility] Address [address] [place] [address] Care Team Providers Care Valet Parking Attendant Name Role Phone Uri Simental MD Primary Care Provider Unavaila Jarret Santa [phone] REASON FOR VISIT BUY Alaplex Encounters Encounter Location Date Provider Diagnosis [address] [address] 12/15/2024 Jarret Ford Plan Of Treatment Next Appt Details Provider Name:Jarret Ford , 02/21/2025 11:15:00 AM, [address] [place], [address], Progress Notes * Jagdish GAMA MDOB:1945 (79 yo M)Acc No.[id number]:12/15/2024 Patient:?Jagdish GAMA :1945???Age:79 Y???Sex:Male Address:[address] [place] [address], [address] * true * Date:? Generated for Printi liana/Molly/eTransmitting on:?01/17/2025 05:17 PM EDT
== END 2025-01-17 15:16 | disposition home or self-care (01) ==
LOC: HO.HCS 14:39
PROVIDERS: PCP Internal Medicine; Visit Provider Internal Medicine Cardiovascular Disease
DX: I48.0 Paroxysmal atrial fibrillation (principal); R79.89 Other specified abnormal findings of blood chemistry; I25.10 Atherosclerotic heart disease of native coronary artery without angina pectoris
CPT/HCPCS: 93010; 99214

== ENCOUNTER → 2025-01-17 14:38 | Outpatient (BNVA) | payer OTHER, SELFPAY | PROVIDERS: PCP Internal Medicine; Visit Provider Internal Medicine Cardiovascular Disease | DX: I48.0 Paroxysmal atrial fibrillation (principal); R79.89 Other specified abnormal findings of blood chemistry; I25.10 Atherosclerotic heart disease of native coronary artery without angina pectoris; Z79.01 Long term (current) use of anticoagulants; Z79.899 Other long term (current) drug therapy | CPT/HCPCS: 93005 ==

== ENCOUNTER 2025-01-30 14:58 | Outpatient (AMB) | payer OTHER, SELFPAY ==
--- NOTE | 2025-01-30 14:20 | MHC.PC.OV ---
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[employer] Required: No Accompanied by: Self / Same As Patient Allergies No Known Allergies Allergy (Verified 01/30/25 16:02) Medication List - Last Reconciled 01/30/25 by Ramon Moreno MD apixaban (Eliquis) 5 mg PO BID cholecalciferol (vitamin D3) 25 mcg PO DAILY coenzyme Q10 300 mg PO DAILY folic acid 20 mg PO DAILY glipizide ER 5 mg PO DAILY levothyroxine 125 mcg PO DAILY mecobalamin (vitamin B12) mcg PO pantoprazole 40 mg PO DAILY rosuvastatin 20 mg PO DAILY 90 days sitagliptin phosphate (Januvia) 100 mg PO DAILY turmeric mg PO vitamin B complex 1 cap PO DAILY Tobacco use date assessed: 01/30/25 Fall risk assessment: No Falls in past year Last assessed Fall Risk: 01/30/25 Dental Screening Dental Screen Date: 01/30/25 Did you have a dental visit in the last 12 months?: Yes Did you have a dental problem in the last 6 months where you did not have access to dental care?: No [facility] History Persistent atrial fibrillation Paroxysmal atrial fibrillation Anxiety Depression Cataract Hernia Diabetes mellitus PAC (premature atrial contraction) Hyperlipidemia CAD (coronary artery disease) Surgical History History of hernia surgery S/P CABG x 4 Family History Father No problems noted. Mother No problems noted. Social History Housing: House Patient Tobacco Use Status: Former Tobacco user e-Cigarette/Vaping Use: Former Use service: No Current occupational status: employed Cognitive needs: No Hearing needs: No Vision needs: No Questionnaire PHQ-9 Over the last 2 weeks, how often have you been bothered by any of the following problems? 1. Little interest or pleasure in doing things: not at all 2. Feeling down, depressed, or hopeless: not at all 3. Trouble falling or staying asleep, or sleeping too much: not at all 4. Feeling tired or having little energy: not at all 5. Poor appetite or overeating: not at all 6. Feeling bad about yourself - or that you are a failure or have let yourself or your family down: not at all 7. Trouble concentrating on things, such as reading the newspaper or watching television: not at all 8. Moving or speaking so slowly that other people could have noticed. Or the opposite - being so fidgety or restless that you have been moving around a lot more than usual: not at all 9. Thoughts that you would be better off or of hurting yourself in some way: not at all Total score: 0 Source: Developed by Drs. Abundio Mcdonald, Dinora Agudelo, James Barrios and colleagues, with an educational hany from [employer]. Thrive Questionnaire Date Thrive assessed: 01/30/25 I am a: Patient Within the past 12 months, did the food you bought not last and you didn't have the money to get more?: Never true Within the past 12 months, did you worry whether your food would run out before you got money to buy more?: Never true Do you have trouble paying for medicines?: No Do you have trouble getting transportation to medical appointments?: No Do you have trouble paying your heating and electricity bill?: No Do you have trouble taking care of your child, family member or friend?: No Do you have trouble with day-to-day activities such as bathing, preparing meals, shopping, managing finances, etc.?: No Are you currently unemployed and looking for a job?: No Are you interested in more education?: No THRIVE Score: 0 AUDIT C Alcohol Use Questionnaire (AUDIT-C) 1. How often do you have a drink containing alcohol?: Monthly or less 2. How many drinks containing alcohol do you have on a typical day when you are drinking?: 1 or 2 3. How often do you have six or more drinks on one occasion?: Less than monthly Total Score: 2 KERRIE-7 AMB Questionnaire KERRIE-7 Date KERRIE - 7 assessed: 01/30/25 Feeling nervous, anxious, or on edge: 0 = Not at all Not being able to stop or control worryin = Not at all Worrying too much about different things: 0 = Not at all Trouble relaxin = Not at all Being so restless that it is hard to sit still: 0 = Not at all Becoming easily annoyed or irritable: 0 = Not at all Feeling afraid as if something awful might happen: 0 = Not at all Total KERRIE-7 score (0-4 normal; 5-9 mild; 10-14 moderate; 15-21 severe): 0 Source: Developed by Drs. Abundio Mcdonald, Dinora Agudelo, James Barrios and colleagues, with an educational hany from [employer]. Physical exam (Primary Care) Vital Signs: Last Vital Signs Temp 97.6 F 01/30/25 14:21 Pulse 68 01/30/25 14:21 BP 128/76 01/30/25 14:21 Pulse Ox 96 01/30/25 14:21 Oxygen Delivery Method Room Air 01/30/25 14:21 BMI result Body Mass Index 31.5 Tobacco/Smoking Status: Tobacco use Status Tobacco use date assessed 01/30/25 01/30/25 14:23 Patient Tobacco Use Status Former Tobacco user 01/30/25 14:23 e-Cigarette/Vaping Use Former Use 01/30/25 14:23 PHQ-9: PHQ-9 Score PHQ-9: Total score 0 01/30/25 15:25 Thrive Assessment: Date of Thrive Assessment Date Thrive assessed 01/30/25 01/30/25 14:23 Coding Level of Care Code New Pt Level 4 (29573) Complex EM visit Add On G2211 Diagnoses Diabetes mellitus E11.9 Assessment & Plan Assessment & Plan (1) Diabetes mellitus: Code(s): E11.9 - Type 2 diabetes mellitus without complications Category: Medical Plan: A1c is greater than 8. He is reluctant to take metformin or injectables. Plan History of Present Illness The patient is a 79-year-old male presenting with hyperglycemia management concerns and associated symptoms. His chronic conditions include Type 2 Diabetes Mellitus, managed previously with Januvia and glipizide, avoiding metformin. Notably, HbA1c was recorded as above 8% in [facility], suggesting suboptimal glycemic control. Coinciding with variations in body weight due to dietary and physical activity changes, he seeks advice on optimizing his diabetes treatment regimen. Reports a historical episode of insomnia managed with Remeron, recently tapered. Insomnia was coupled with atrial fibrillation, now resolved through cardiological intervention. His blood pressure was noted to be well-controlled during recent consultations. His immediate concern of ear congestion seems to be attributed to excessive ear wax accumulation. The patient's ear issue began a few weeks ago, warranting attention to restore auditory function. He mentioned previous cataract operations, successfully improving his visual acuity without corrective lenses' aid. 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 - Family Status: with children residing locally. - Exercise: Active lifestyle including hiking and neighborhood walking; previously lost weight through consistent physical activity. - Weight management: Varied weights from 212 to 245.2 lbs. Focus on reducing weight by 5 to 7 lbs. - Smoking: Personal implication in family history of lung disease due to smoking. - Dietary: Notes weight gain; historical weight reduction correlating with activity increase. - Functional status remains active in professional and personal domains, emphasizing ongoing mobility and independence. Review of Systems - General: Reports active lifestyle, denies retiring into a sedentary lifestyle. - Cardiovascular: Denies current palpitations or arrhythmia, reports atrial fibrillation resolved with treatment. - Respiratory: Denies dyspnea, family history of lung issues due to smoking. - Endocrine: Reports previous high A1c, uses Januvia, opposes metformin. - Gastrointestinal: Denies issues affecting medication intake. - Nervous: Reports previous insomnia managed with Remeron, denies ongoing severe sleep disturbances. - Sensory/ENT: Reports ear congestion, possible wax build-up, improved vision post-cataract surgery. - Musculoskeletal: Engages in walking for exercise, no reported limitations. Physical Exam General: Cooperative and healthy appearing Nutritional Appearance: Well nourished Orientation/consciousness: Patient oriented x3 Limitations: No limitations Head: Normal to inspection General: Appearance normal, both eyes and all related structures Neck: Normal visual inspection Chest: Normal palpation of entire chest wall Respiratory: N ormal respiratory effort Neurology: Patient oriented x3, but reports difficulty sleeping and feeling tired. Results - Labs: HbA1c above target as per September labs (greater than 8%) - Tests and diagnostics: Proposed blood glucose monitoring, additional labs for glycemic control assessment suggested Plan 1. Type 2 Diabetes Mellitus - Evaluate glycemic control with upcoming HbA1c. - Consider lifestyle adjustments; explore medication changes dependent on lab results. 2. Cerumen Impaction - Advise cerumen extraction at the walk-in clinic upon next operational day. 3. Atrial Fibrillation - Maintain current management, monitor cardiovascular status with routine follow-ups. 4. Obesity - Focus on dietary modifications and exercise regimen aiming at optimal weight reduction. 5. Insomnia - Encourage continuation of sleep hygiene practices, evaluate lifestyle impacts on sleep. 6. Hypertension - Maintain current management with ongoing blood pressure monitoring. Discussion Notes We discussed the management of the patient's diabetes with current medication usage and considerations of adding newer therapies. I explained the importance of repeat HbA1c evaluation to tailor medication needs appropriately. The benefits and potential side effects of medications like Januvia and alternatives like Jardiance were reviewed, including the risk of urinary tract infections. I highlighted the role of lifestyle adjustments in achieving better diabetes control. The plan for cerumen extraction at a nearby clinic was agreed upon for the immediate ear issue. Regarding arrhythmia, I validated its resolution and advised continuity of current cardiac management. Discussion included general guidance on maintaining a balanced, active lifestyle, and weight management goals for overall health stability. Patient Instructions - Continue with current medications; monitor blood sugars at home. - Proceed to the walk-in clinic for ear wax removal tomorrow. - Focus on a balanced diet and regular exercise aiming for weight loss. - Engage with the medical portal for non-urgent communications. - Perform routine blood pressure checks at home. - Report any significant changes in symptoms promptly. - Expect a follow-up post-lab test to reassess diabetes management. - Maintain regular visits with specialists as scheduled. Orders: Orders Basic Metabolic Panel Today E11.9 - Type 2 diabetes mellitus without complications Liver Panel Today E11.9 - Type 2 diabetes mellitus without complications Thyroid Stimulating Hormone Today E11.9 - Type 2 diabetes mellitus without complications Hemoglobin A1c Today E11.9 - Type 2 diabetes mellitus without complications UA and rflx microscopic Today E11.9 - Type 2 diabetes mellitus without complications Complete Blood Count no Diff Today E11.9 - Type 2 diabetes mellitus without complications Lipid Panel Today E11.9 - Type 2 diabetes mellitus without complications Microalbumin, Random (w Creat) Today E11.9 - Type 2 diabetes mellitus without complications
[2025-01-30 14:21] VITALS: BP 128/76; PULSE 68; TEMP 36.4; O2SAT 96; BMI 31.5
--- OUTSIDE RECORDS SUMMARY | 2025-01-30 15:03 | XMS_ITS ---
Author Organization [facility] Address [address] [place] [address] Care Team Providers Care Brake Coupler Dinkey Name Role Phone Kamille LEWIS, Uri Primary Care Provider Abundio Mccabe [phone] REASON FOR VISIT change in bowels,wt loss,early satiety Encounters Encounter Location Date Provider Diagnosis [facility] [address] [place] [id number] 08/24/2024 Abundio Rahman Plan Of Treatment No Information Progress Notes * NATANBREADOB:1945 ( 79 yo M)Acc No.[id number]:08/24/2024 EGD and COL/MAC Patient:?BREA GAMA Provider:?Abundio Rahman MD :1945???Age:78 Y???Sex:Male Hermilo e:08/24/2024 Address:[address] [facility] [place] Pcp:Uri Simental MD Subjective: * Chief Complaints: * ???1. Change in bowels,wt lo ss,early satiety. * Medical History:? Objective: * Vitals:? Assessment: Plan: * Treatment: * * The named appointment provid er may or may not be the originator of this progress note, and it is not deemed complete until electronically signed by the appointment provider. Sign off status: Pending * Provider:?Abundio Rahman MD Date:? 024 Generated for Printi ng/Faxing/eTransmitting on:?01/30/2025 03:03 PM EDT
--- OUTSIDE RECORDS SUMMARY | 2025-01-30 15:03 | XMS_ITS ---
Author Organization [facility] Address [address] [place] [address] Care Team Providers Care Edger Runner Name Role Phone Kamille LEWIS, Uri Primary Care Provider Abundio Mccabe [phone] REASON FOR VISIT wt loss,early satiety,change in bowels Encounters Encounter Location Date Provider Diagnosis [facility] [place] [facility] [address] [facility] [facility] [place] [id number] 10/03/2024 Abundio Rahman Plan Of Treatment No Information Progress Notes * NATAN BREADOB:1945 ( 79 yo M)Acc No.[id number]:10/03/2024 EGD and COL/MAC Patient:?BREA GAMA Provider:?Abundio Rahman MD :1945???Age:78 Y???Sex:Male Hermilo e:10/03/2024 Address:[address] [facility] Pcp:Uri Simental MD Subjective: * Chief Complaints: * ???1. Wt loss,early satiety, change in bowels. * Medical History:? Objective: * Vitals:? Assessment: Plan: * Treatment: * * The named appointment provid er may or may not be the originator of this progress note, and it is not deemed complete until electronically signed by the appointment provider. Sign off status: Pending * Provider:?Abundio Rahman MD Date:? 025 Generated for Printi ng/Faxing/eTransmitting on:?01/30/2025 03:03 PM EDT
--- OUTSIDE RECORDS SUMMARY | 2025-01-30 15:03 | XMS_ITS ---
Author Organization [facility] Address [address] [place] [address] Care Team Providers Care Armed Custom Protection Officer Name Role Phone Uri Simental MD Primary Care Provider Unavaila Jarret Santa [phone] REASON FOR VISIT bought ALAPLEX Encounters Encounter Location Date Provider Diagnosis [address] [address] 11/22/2024 Jarret Ford Plan Of Treatment Next Appt Details Provider Name:Jarret Ford , 02/21/2025 11:15:00 AM, [address] [place], [address], Progress Notes * Jagdish GAMA MDOB:1945 (78 yo M)Acc No.[id number]:11/22/2024 Patient:?Jagdish GAMA :1945???Age:78 Y???Sex:Male Address:[address] [place] [address], [address] * true * Date:? Generated for Printi liana/Molly/eTransmitting on:?01/30/2025 03:02 PM EDT
--- OUTSIDE RECORDS SUMMARY | 2025-01-30 15:03 | XMS_ITS ---
Author Organization [facility] Address [address] [place] [address] Care Team Providers Care Insights Analyst Name Role Phone Uri Simental MD Primary Care Provider Unavaila Jarret Santa [phone] REASON FOR VISIT BUY Alaplex Encounters Encounter Location Date Provider Diagnosis [address] [address] 12/15/2024 Jarret Ford Plan Of Treatment Next Appt Details Provider Name:Jarret Ford , 02/21/2025 11:15:00 AM, [address] [place], [address], Progress Notes * Jagdish GAMA MDOB:1945 (79 yo M)Acc No.[id number]:12/15/2024 Patient:?Jagdish GAMA :1945???Age:79 Y???Sex:Male Address:[address] [place] [address], [address] * true * Date:? Generated for Printi liana/Molly/eTransmitting on:?01/30/2025 03:02 PM EDT
--- OUTSIDE RECORDS SUMMARY | 2025-01-30 15:03 | XMS_ITS ---
Author Organization [facility] Address [address] [place] [address] Care Team Providers Care Movie Theater Usher Name Role Phone Uri Simental MD Primary Care Provider Unavaila Jarret Santa Unavailable [phone] Nola Shaikh Unavailable [phone] REASON FOR VISIT seen sooner Encounters Encounter Location Date Provider Diagnosis [address] [address] 12/15/2024 Nola Shaikh Plan Of Treatment Next Appt Details Provider Name:Jarret Ford , 02/21/2025 11:15:00 AM, [address] [place] [address], [address], Progress Notes * Jagdish GAMA MDOB:1945 (79 yo M)Acc No.[id number]:12/15/2024 Progress Notes Patient:?Jagdish GAMA Provider:?Nola Shaikh DPM :1945???Age:79 Y???Sex:Male Hermilo e:12/15/2024 Address:[address] [place], [place] [id number] Pcp:Uri Simental MD Subjective: * Chief Complaints: [...] Shaikh DPM Date:?2024 Generated for Bessie gaines/Molly/Chilo on:?01/30/2025 03:03 PM EDT
--- OUTSIDE RECORDS SUMMARY | 2025-01-30 15:03 | XMS_ITS ---
Author Organization [facility] Address [address] [place] [address] Care Team Providers Care Card Decorator Name Role Phone Uri Simental MD Primary Care Provider Abundio Mccabe [phone] REASON FOR VISIT cancelling sep procedure. Encounters Encounter Location Date Provider Diagnosis [facility] [address] [place] [address] 09/07/2024 Abundio Rahman Plan Of Treatment No Information Progress Notes * NATAN BREADOB:1945 ( 78 yo M)Acc No.[id number]:09/07/2024 Patient:?BREA GAMA :1945???Age:78 Y???Sex:Male Address:[address] [place] [address] * true * Date:? Generated for Bessie gaines/Molly/eTransmitting on:?01/30/2025 03:02 PM EDT
--- OUTSIDE RECORDS SUMMARY | 2025-01-30 15:03 | XMS_ITS | Patient Health Record ---
Author Organization [facility] Address [address] [place] [address] Care Team Providers Care Long Lines Operator Name Role Phone Uri Simental MD Primary Care Provider Abundio Mccabe Unavailable [phone] Allergies No Known Allergies Reason For Referral No Information Medications Medication [...] Sodium 125 MCG Oral for 90 Active Social History Tobacco Use: Social History Observation Description Date Details (start date - stop date) Never Smoker NA - NA Tobacco Use/Smoking Question Answer Notes Patient is a nonsmoker Alcohol Screen Question Answer Notes Did you have a drink containing alcohol in the p ast year? No Points 0 Interpretation Negative Section Notes: Nonsmoker, no significant al cohol Problems Problem Type SNOMED Code ICD Code Onset Dates Problem Status W/U Status Risk Notes Problem Change in bowel habit (02769833) Change in bowel habits (R19.4) Active confirmed Problem Early satiety (352856345) Early satiety (R68.81) Active confirmed Problem Weight decreased (926714019) Loss of weight (R63.4) Active confirmed Vital Signs Blood pressure diastolic 00 mm Hg 08/11/2024 Height 6 ft 2 in in 08/11/2024 Blood pressure systolic 00 mm Hg 08/11/2024 Weight 223 lbs 08/11/2024 BMI 28.63 kg/m2 08/11/2024 Encounters Encounter Location Date Provider Diagnosis [facility] [address] [place] [address] 08/11/2024 Abundio Rahman Change in bowel habits R19.4 ; Early satiety R68.81 and Loss of weight R63.4 [facility] [address] [place] [address] 08/11/20[facility] [address] [place] [address] 08/22/2024 [facility] [address] [place] [address] 09/07/2024 Abundio Rahman Assessments Encounter Date Diagnosis (ICD Code) Assessment Notes Treatment Notes Treatment Clinical Notes Section Notes 08/11/2024 Change in bowel habits (ICD-10 - R19.4) DO NOT TAKE THE JANUVIA FOR 3 DAYS BEFORE THE PROCEDURES DO NOT TAKE THE ASPIRIN ON THE MORNING OF THE PROCEDURES DO NOT TAKE THE GLIPIZIDE THE NIGHT BEFORE NOR ON THE MORNING OF THE PROCEDURES Jagdish currently appears well from a clinical standpoint. However, his ongoing GI complaints with a significant weight loss are somewhat worrisome. We did review that he is having significant emotional issues and those could certainly be playing a role in a lot of his GI symptoms, particularly that of the anorexia and weight loss. However, we also reviewed that it would be important to rule out any underlying organic process such as a GI neoplasm, significant gastritis, ulcer disease, diabetic-induced gastroparesis, inflammatory bowel disease, celiac disease, and colon polyps as a contributing factor to his GI complaints as well. As such, I did recommend he undergo an upper endoscopy and colonoscopy in the near future to rule out any of those possible underlying significant problems prior to attributing the GI complaints to his underlying emotional issues. Full consent was obtained from him for both the upper endoscopy and colonoscopy, including risks of bleeding and perforation. We did review the rationale for the procedures in regard to detecting serious GI problems such as malignancy. He was given the below instructions regarding adjustment of his medications for the procedures. The procedures will be done with monitored anesthesia care. Given his recent nuclear stress test and upcoming cardiology appointment at [facility], we shall defer the GI procedures until he is able to be seen by cardiology and has received clearance from their standpoint for the procedure and anesthesia. However, I do think we will be able to get the procedures done by some time in August. Jagdish and his were very comfortable with this plan. Thank you again for allowing me to participate in Jagdish's care. I shall continue to keep you advised of his progress. 08/11/2024 Early satiety (ICD-10 - R68.81) Jagdish currently appears well from a clinical standpoint. However, his ongoing GI complaints with a significant weight loss are somewhat worrisome. We did review that he is having significant emotional issues and those could certainly be playing a role in a lot of his GI symptoms, particularly that of the anorexia and weight loss. However, we also reviewed that it would be important to rule out any underlying organic process such as a GI neoplasm, significant gastritis, ulcer disease, diabetic-induced gastroparesis, inflammatory bowel disease, celiac disease, and colon polyps as a contributing factor to his GI complaints as well. As such, I did recommend he undergo an upper endoscopy and colonoscopy in the near future to rule out any of those possible underlying significant problems prior to attributing the GI complaints to his underlying emotional issues. Full consent was obtained from him for both the upper endoscopy and colonoscopy, including risks of bleeding and perforation. We did review the rationale for the procedures in regard to detecting serious GI problems such as malignancy. He was given the below instructions regarding adjustment of his medications for the procedures. The procedures will be done with monitored anesthesia care. Given his recent nuclear stress test and upcoming cardiology appointment at [facility], we shall defer the GI procedures until he is able to be seen by cardiology and has received clearance from their standpoint for the procedure and anesthesia. However, I do think we will be able to get the procedures done by some time in August. Jagdish and his were very comfortable with this plan. Thank you again for allowing me to participate in Jagdish's care. I shall continue to keep you advised of his progress. 08/11/2024 Loss of weight (ICD-10 - R63.4) Jagdish currently appears well from a clinical standpoint. However, his ongoing GI complaints with a significant weight loss are somewhat worrisome. We did review that he is having significant emotional issues and those could certainly be playing a role in a lot of his GI symptoms, particularly that of the anorexia and weight loss. However, we also reviewed that it would be important to rule out any underlying organic process such as a GI neoplasm, significant gastritis, ulcer disease, diabetic-induced gastroparesis, inflammatory bowel disease, celiac disease, and colon polyps as a contributing factor to his GI complaints as well. As such, I did recommend he undergo an upper endoscopy and colonoscopy in the near future to rule out any of those possible underlying significant problems prior to attributing the GI complaints to his underlying emotional issues. Full consent was obtained from him for both the upper endoscopy and colonoscopy, including risks of bleeding and perforation. We did review the rationale for the procedures in regard to detecting serious GI problems such as malignancy. He was given the below instructions regarding adjustment of his medications for the procedures. The procedures will be done with monitored anesthesia care. Given his recent nuclear stress test and upcoming cardiology appointment at [facility], we shall defer the GI procedures until he is able to be seen by cardiology and has received clearance from their standpoint for the procedure and anesthesia. However, I do think we will be able to get the procedures done by some time in August. Jagdish and his were very comfortable with this plan. Thank you again for allowing me to participate in Jagdish's care. I shall continue to keep you advised of his progress. Plan Of Treatment Future Test Test Name Order Date UPPER GI ENDOSCOPY 08/11/2024 COLONOSCOPY 08/11/2024 Insurance Providers Payer Name Payer Address Payer Phone Subscriber Number Group Number Insured Name Patient Relationship to Insured Coverage Start Date Coverage End Date [facility] [address] [place] [phone] [id number] NATANJAGDISH Self - patient is the insured Medical (General) History Medical History History ICD Code Hypothyroidism NIDDM Coronary artery disease-prev ious CABG--had been seeing , but is scheduled for a followup appointment with [facility] in 08/2024 after a nuclear stress test was done there in July, Elevated Cholesterol Gout Chronic renal insufficiency COVID Denies [place],CVA,Lung disease,renal disease Hypertension Hyperlipidemia Surgical History Surgery Date(Month/Year) Hernia repair x 2 Nasal polyps CABG 4V in 2008 Cataracts bilaterally
--- OUTSIDE RECORDS SUMMARY | 2025-01-30 15:03 | XMS_ITS | Patient Health Record ---
Author Organization [facility] [place] Address [address] [place] [address] Care Team Providers Care Barrel Filler Name Role Phone Uri Simental MD Primary Care Provider UnavailJarret Price Unavailable [phone] Black, Nola Unavailable [phone] Allergies Allergen (clinical drug ingredient) Drug/Non Drug [...] Problem Acquired hammer toe of right foot (2151153429768880 ) Other hammer toe(s) (acquired), right foot (M20.41) Active confirmed Problem Acquired hammer toe of left foot (2211630329177644 ) Other hammer toe(s) (acquired), left foot (M20.42) Active confirmed Problem Polyneuropathy due to type 2 diabetes mellitus (289732220) Type 2 diabetes mellitus with diabetic polyneuropathy (E11.42) Active confirmed Vital Signs Blood pressure diastolic 70 mm Hg 11/15/2024 Height 6 ft 2inch in 11/15/2024 Blood pressure systolic 130 mm Hg 11/15/2024 Weight 220 lbs 11/15/2024 BMI 28.24 kg/m2 11/15/2024 Procedures Procedure Date Ordered Date Performed Result Body Sit e 92053-SJXHYEV NAIL, 6 OR MORE 11/15/2024 N/A 48602-GEDW SKIN LESIONS, OVER 4 11/15/2024 N/A Encounters Encounter Location Date Provider Diagnosis [facility] [address] [address] 11/15/2024 Jarret Logan Type 2 diabetes mellitus with diabetic polyneuropathy E11.42 ; Tinea unguium B35.1 ; Other hammer toe(s) (acquired), right foot M20.41 and Other hammer toe(s) (acquired), left foot M20.42 [facility] [address] 11/15/2024 Jarret Ford [facility] [address] 11/22/2024 Jarret Logan [facility] [address] 12/15/2024 Jarretclark MeyerLogan Assessments Encounter Date Diagnosis [...] Treatment Pending Test Test Name Order Date 25697-YLPYEPN NAIL, 6 OR MORE 11/15/2024 55274-VGVA SKIN LESIONS, OVER 4 11/15/19 Next Appt Details Provider Name:Jarret Bassam Logan , 02/21/2025 11:15:00 AM, [address] [place] [address], [phone], Insurance Providers Payer Name Payer Address Payer Phone Subscriber Number Group Number Insured Name Patient Relationship to Insured Coverage Start Date Coverage End Date [facility] [address] [place] [id number] Jagdish Montejo Self - patient is the insured 2 Medical (General) History Medical History History ICD Code Anxiety Arthritis covid-19 Depression type II diabetes Gout Heart disease - A-FIB Kidney disease Numbness Poor circulation Reflux sinusitis thyroid Chicken pox Hypercholesterolemia
== END 2025-01-30 16:03 | disposition home or self-care (01) ==
LOC: HO.HMCHD 14:58
PROVIDERS: PCP Internal Medicine; Visit Provider Internal Medicine
DX: E11.9 Type 2 diabetes mellitus without complications (principal)

== ENCOUNTER → 2025-01-30 14:58 | Outpatient (BNVA) | payer OTHER, SELFPAY | PROVIDERS: PCP Internal Medicine; Visit Provider Internal Medicine ==

== ENCOUNTER 2025-01-31 15:17 | Outpatient (AMB) | payer OTHER, SELFPAY ==
[2025-01-31 15:22] VITALS: BP 120/80; PULSE 70; TEMP 36.6; O2SAT 97; BMI 31.5
--- NOTE | 2025-01-31 15:22 | AM.OFFWIN_ITS ---
Intake Vital Signs 01/31/25 15:22 Height 6 ft 2 in Weight 245 lb BMI 31.5 BP 120/80 Blood Pressure Location Rt brachial Position Sitting Pulse 70 Pulse Source Pulse Oximeter Temp 97.8 F Temp Source Oral Pulse Oximetry (%) 97 Oxygen Delivery Method Room Air Intake Visit Reasons: EP-lt ear block Patient Tobacco Use Status: Former Tobacco user Allergies No Known Allergies Allergy (Verified 01/31/25 15:22) Do you need a note to return to daycare/school/sports/work: No HPI HPI Comments History of Present Illness Details History of Present Illness - The patient is a 79-year-old male pres enting with left ear discomfort caused by cerumen impaction, worse for the past few days. He reported persistent blockage and a drum-like sensation despite attempts to rectify the issue through swabbing. Physical Exam General: Cooperative, healthy appearing, comfortable, no acute distress and well developed Orientation: Patient oriented x3 Limitations: No limitations Head: Normal to inspection Ears: left EAC with cerumen impaction, right EAC and TM normal Nose: Normal External nose present Face and sinus: Normal facial exam Eyes: Appearance normal, both eyes and all related structures Neck: Normal visual inspection and Yes full ROM Respiratory: Normal respiratory effort and able to speak in complete sentences. Skin: No rashes or lesions noted Neuro: Patient oriented x3 Extremities: Normal to inspection [facility] Medical History Persistent atrial fibrillation Paroxysmal atrial fibrillation Anxiety Depression Cataract Hernia Diabetes mellitus PAC (premature atrial contraction) Hyperlipidemia CAD (coronary artery disease) Surgical History History of hernia surgery S/P CABG x 4 Family History Father No problems noted. Mother No problems noted. Social History Housing: House Patient Tobacco Use Status: Former Tobacco user e-Cigarette/Vaping Use: Former Use service: No Current occupational status: employed Cognitive needs: No Hearing needs: No Vision needs: No Review of Systems Const All systems reviewed & are unremarkable except as noted in HPI and below Physical Exam Vital Signs: Last Vital Signs Temp 97.8 F 01/31/25 15:22 Pulse 70 01/31/25 15:22 BP 120/80 01/31/25 15:22 Pulse Ox 97 01/31/25 15:22 Oxygen Delivery Method Room Air 01/31/25 15:22 BMI result Body Mass Index 31.5 Office Procedures Cerumen Removal Details: left TM normal after cerumen normal, scant blood in left EAC s/p removal From which ear canal was the cerumen removed: left Removal: irrigation and otoscope w/curette Notes: patient tolerated procedure well, no complications and ear canal clear 35442-Etg Wax Removal by Spoon/Curette Assessment & Plan Assessment & Plan (1) Impacted cerumen of left ear: Code(s): H61.22 - Impacted cerumen, left ear Plan: For the patient's left ear cerumen impaction, I will have the ear flushed by a automobile washer steam to alleviate discomfort and ensure the ear canal is clear. This measure should help resolve the blockage symptomatic of an ear impacted with cerumen. Able to remove cerumen with curette, left TM normal. Patient was informed and verbally consented to the use of an ambient scribe for clinic note documentation during this visit. Coding Level of Care Code Est Pt Level 3 (66308) Diagnoses Impacted cerumen of left ear H61.22 CPT Codes Office Procedure - CPT: 98819-Mvv Wax Removal by Spoon/Curette ([id number])
--- OUTSIDE RECORDS SUMMARY | 2025-01-31 16:11 | XMS_ITS ---
Author Organization [facility] Address [address] [place] [address] Care Team Providers Care Sales Market Leader Name Role Phone Uri Simental MD Primary Care Provider Unavaila Jarret Santa [phone] REASON FOR VISIT bought ALAPLEX Encounters Encounter Location Date Provider Diagnosis [address] [address] 11/22/2024 Jarret Ford Plan Of Treatment Next Appt Details Provider Name:Jarret Ford , 02/21/2025 11:15:00 AM, [address] [place], [address], Progress Notes * Jagdish GAMA MDOB:1945 (78 yo M)Acc No.[id number]:11/22/2024 Patient:?Jagdish GAMA :1945???Age:78 Y???Sex:Male Address:[address] [place] [address], [address] * true * Date:? Generated for Printi liana/Molly/eTransmitting on:?01/31/2025 04:11 PM EDT
--- OUTSIDE RECORDS SUMMARY | 2025-01-31 16:11 | XMS_ITS ---
Author Organization [facility] Address [address] [place] [address] Care Team Providers Care Etcher Apprentice Photoengraving Name Role Phone Uri Simental MD Primary Care Provider Abundio Mccabe [phone] REASON FOR VISIT cancelling sep procedure. Encounters Encounter Location Date Provider Diagnosis [facility] [address] [place] [address] 09/07/2024 Abundio Rahman Plan Of Treatment No Information Progress Notes * NATAN BREADOB:1945 ( 78 yo M)Acc No.[id number]:09/07/2024 Patient:?BREA GAMA :1945???Age:78 Y???Sex:Male Address:[address] [place] [address] * true * Date:? Generated for Bessie gaines/Molly/eTransmitting on:?01/31/2025 04:11 PM EDT
--- OUTSIDE RECORDS SUMMARY | 2025-01-31 16:12 | XMS_ITS ---
Author Organization [facility] Address [address] [place] [address] Care Team Providers Care Billboard Mechanic Name Role Phone Uri Simental MD Primary Care Provider Unavaila Jarret Santa Unavailable [phone] Nola Shaikh Unavailable [phone] REASON FOR VISIT seen sooner Encounters Encounter Location Date Provider Diagnosis [address] [address] 12/15/2024 Nola Shaikh Plan Of Treatment Next Appt Details Provider Name:Jarret Ford , 02/21/2025 11:15:00 AM, [address] [place] [address], [address], Progress Notes * Jagdish GAMA MDOB:1945 (79 yo M)Acc No.[id number]:12/15/2024 Progress Notes Patient:?Jagdish GAMA Provider:?Nola Shaikh DPM :1945???Age:79 Y???Sex:Male Hermilo e:12/15/2024 Address:[address] [place], [place] [address] Pcp:Uri Simental MD Subjective: * Chief Complaints: [...] Shaikh DPM Date:?2024 Generated for Bessie gaines/Molly/Chilo on:?01/31/2025 04:11 PM EDT
--- OUTSIDE RECORDS SUMMARY | 2025-01-31 16:12 | XMS_ITS ---
Author Organization [facility] Address [address] [place] [address] Care Team Providers Care Compensation And Benefits Analyst Name Role Phone Kamille LEWIS, Uri Primary Care Provider Abundio Mccabe [phone] REASON FOR VISIT wt loss,early satiety,change in bowels Encounters Encounter Location Date Provider Diagnosis [facility] [address] [place] [id number] 10/03/2024 Abundio Rahman Plan Of Treatment No Information Progress Notes * NATAN BREADOB:1945 ( 79 yo M)Acc No.[id number]:10/03/2024 EGD and COL/MAC Patient:?BREA GAMA Provider:?Abundio Rahman MD :1945???Age:78 Y???Sex:Male Hermilo e:10/03/2024 Address:[address] [facility] Pcp:Uri Simental MD Subjective: * Chief Complaints: [...] MD Date:? 025 Generated for Printi ng/Faxing/eTransmitting on:?01/31/2025 04:12 PM EDT
--- OUTSIDE RECORDS SUMMARY | 2025-01-31 16:12 | XMS_ITS | Patient Health Record ---
Author Organization [facility] [place] Address [address] [place] [address] Care Team Providers Care Triple Air Valve Tester Name Role Phone Uri Simental MD Primary Care Provider UnavailJarret Price Unavailable [phone] Black, Nola Unavailable [phone] Allergies Allergen (clinical drug ingredient) Drug/Non Drug [...] Problem Acquired hammer toe of right foot (4632922258192342 ) Other hammer toe(s) (acquired), right foot (M20.41) Active confirmed Problem Acquired hammer toe of left foot (8291163287937524 ) Other hammer toe(s) (acquired), left foot (M20.42) Active confirmed Problem Polyneuropathy due to type 2 diabetes mellitus (054003714) Type 2 diabetes mellitus with diabetic polyneuropathy (E11.42) Active confirmed Vital Signs Blood pressure diastolic 70 mm Hg 11/15/2024 Height 6 ft 2inch in 11/15/2024 Blood pressure systolic 130 mm Hg 11/15/2024 Weight 220 lbs 11/15/2024 BMI 28.24 kg/m2 11/15/2024 Procedures Procedure Date Ordered Date Performed Result Body Sit e 08927-GIKFLUU NAIL, 6 OR MORE 11/15/2024 N/A 94482-XKUW SKIN LESIONS, OVER 4 11/15/2024 N/A Encounters Encounter Location Date Provider Diagnosis [facility] [address] [address] 11/15/2024 Jarret Logan Type 2 diabetes mellitus with diabetic polyneuropathy E11.42 ; Tinea unguium B35.1 ; Other hammer toe(s) (acquired), right foot M20.41 and Other hammer toe(s) (acquired), left foot M20.42 [facility] [address] 11/15/2024 Jarret Ford [facility] [address] 11/22/2024 Jarret Logan [facility] [address] 12/15/2024 Jarretclark MeyerLogan Assessments Encounter Date Diagnosis [...] Treatment Pending Test Test Name Order Date 56671-ZDUPSLM NAIL, 6 OR MORE 11/15/2024 76099-WONT SKIN LESIONS, OVER 4 11/15/19 Next Appt Details Provider Name:Jarret Bassam Logan , 02/21/2025 11:15:00 AM, [address] [place] [address], [address], Insurance Providers Payer Name Payer Address Payer Phone Subscriber Number Group Number Insured Name Patient Relationship to Insured Coverage Start Date Coverage End Date [facility] [address] [place] [id number] Jagdish Montejo Self - patient is the insured 2 Medical (General) History Medical History History ICD Code Anxiety Arthritis covid-19 Depression type II diabetes Gout Heart disease - A-FIB Kidney disease Numbness Poor circulation Reflux sinusitis thyroid Chicken pox Hypercholesterolemia
--- OUTSIDE RECORDS SUMMARY | 2025-01-31 16:12 | XMS_ITS ---
Author Organization [facility] Address [address] [place] [address] Care Team Providers Care Vamp Seamer Name Role Phone Kamille LEWIS, Uri Primary Care Provider Abundio Mccabe [phone] REASON FOR VISIT change in bowels,wt loss,early satiety Encounters Encounter Location Date Provider Diagnosis [facility] [address] [place] [id number] 08/24/2024 Abundio Rahman Plan Of Treatment No Information Progress Notes * NATANBREADOB:1945 ( 79 yo M)Acc No.[id number]:08/24/2024 EGD and COL/MAC Patient:?BREA GAMA Provider:?Abundio Rahman MD :1945???Age:78 Y???Sex:Male Hermilo e:08/24/2024 Address:[address] [facility] Pcp:Uri Simental MD Subjective: * Chief Complaints: [...] MD Date:? 024 Generated for Printi ng/Faxing/eTransmitting on:?01/31/2025 04:11 PM EDT
--- OUTSIDE RECORDS SUMMARY | 2025-01-31 16:12 | XMS_ITS | Patient Health Record ---
Author Organization [facility] Address [address] [place] [address] Care Team Providers Care Railroad Car Painter Name Role Phone Uri Simental MD Primary Care Provider Abundio Mccabe Unavailable [phone] Allergies No Known Allergies Reason For Referral [...] Risk Notes Problem Change in bowel habit (67115794) Change in bowel habits (R19.4) Active confirmed Problem Early satiety (071644926) Early satiety (R68.81) Active confirmed Problem Weight decreased (199357452) Loss of weight (R63.4) Active confirmed Vital Signs Blood pressure diastolic 00 mm Hg 08/11/2024 Height 6 ft 2 in in 08/11/2024 Blood pressure systolic 00 mm Hg 08/11/2024 Weight 223 lbs 08/11/2024 BMI 28.63 kg/m2 08/11/2024 Encounters Encounter Location Date Provider Diagnosis [facility] [address] [place] [address] 08/11/2024 Abundio Rahman Change in bowel habits R19.4 ; Early satiety R68.81 and Loss of weight R63.4 [facility] [address] [place] [address] 08/11/20[facility] [address] [place] [address] 08/22/20[facility] [address] [place] [address] 09/07/2024 Abundio Rahman Assessments Encounter Date Diagnosis [...] stress test and upcoming cardiology appointment at [facility], we shall defer the GI procedures [...] stress test and upcoming cardiology appointment at [facility], we shall defer the GI procedures until he is able to be seen by cardiology and has received clearance from their standpoint for the procedure and anesthesia. However, I do think we will be able to get the procedures done by some time in August. Jgadish and his were very comfortable with this [...] stress test and upcoming cardiology appointment at [facility], we shall defer the GI procedures [...] Insured Coverage Start Date Coverage End Date [facility] [address] [place] [address] [id number] NATANJAGDISH Self - patient is the insured Medical (General) History Medical History History ICD Code Hypothyroidism NIDDM Coronary artery disease-prev ious CABG--had been seeing , but is scheduled for a followup appointment with [facility] in 08/2024 after a nuclear stress test was done there in July, Elevated Cholesterol Gout Chronic renal insufficiency COVID Denies [place],CVA,Lung disease,renal disease Hypertension Hyperlipidemia Surgical History Surgery Date(Month/Year) Hernia repair x 2 Nasal polyps CABG 4V in 2008 Cataracts bilaterally
--- OUTSIDE RECORDS SUMMARY | 2025-01-31 16:12 | XMS_ITS ---
Author Organization [facility] Address [address] [place] [address] Care Team Providers Care Correctional Supervising Cook Name Role Phone Uri Simental MD Primary Care Provider Unavaila Jarret Santa [phone] REASON FOR VISIT BUY [employer] Encounters Encounter Location Date Provider Diagnosis [address] [address] 12/15/2024 Jarret Ford Plan Of Treatment Next Appt Details Provider Name:Jarret Ford , 02/21/2025 11:15:00 AM, [address] [place], [address], Progress Notes * Jagdish GAMA MDOB:1945 (79 yo M)Acc No.[id number]:12/15/2024 Patient:?Jagdish GAMA :1945???Age:79 Y???Sex:Male Address:[address] [place] [address], [address] * true * Date:? Generated for Printi liana/Molly/eTransmitting on:?01/31/2025 04:11 PM EDT
== END 2025-01-31 16:12 | disposition home or self-care (01) ==
PROVIDERS: PCP Internal Medicine; Visit Provider Physician Assistant
DX: H61.22 Impacted cerumen, left ear (principal)

== ENCOUNTER → 2025-01-31 15:17 | Outpatient (BNVA) | payer OTHER, SELFPAY | PROVIDERS: PCP Internal Medicine; Visit Provider Physician Assistant | DX: H61.22 Impacted cerumen, left ear (principal) | CPT/HCPCS: 69210 ==

== ENCOUNTER 2025-05-01 14:22 | Outpatient (AMB) | payer OTHER, SELFPAY ==
--- OUTSIDE RECORDS SUMMARY | 2024-08-24 07:20 | XMS_ITS ---
Author Organization [facility] Address [address] [place] [address] Care Team Providers Care Sheet Folder Name Role Phone Kamille (RETIRED) , Uri Primary Care Provide Abundio Espitia [phone] REASON FOR VISIT change in bowels,wt loss,early satiety Encounters Encounter Location Date Provider Diagnosis [facility] Outpatient [address] [place], [place] [address] [phone] 08/24/2024 Abundio Rahman Plan Of Treatment No Information Progress Notes * BREA GAMADOB:1945 ( 79 yo M)Acc No.[id number]:08/24/2024 EGD and COL/MAC Patient: BREA CHEN Provider: Jaylan Rahman MD :1945 A ge:78 Y S ex:Male Date:08/24/2024 Address:[address] [facility] Pcp:Uri Simental (RETIRED )MD Subjective: * Chief [...] Pending * Provider: Jaylan Rahman MD Date: 1 10/25/2023 Generated for Printi ng/Faxing/eTransmitting on: 0 05/01/2025 02:52 PM EDT
[2025-05-01 14:25] VITALS: BP 132/62; PULSE 60; TEMP 36.9; O2SAT 95; BMI 33.8
--- NOTE | 2025-05-01 14:25 | AM.OFFWIN_ITS ---
Intake Vital Signs 05/01/25 14:25 Height 6 ft 2 in Weight 263 lb 4 oz BMI 33.8 BP 132/62 Blood Pressure Location Rt brachial Position Sitting Pulse 60 Pulse Source Pulse Oximeter Temp 98.5 F Temp Source Oral Pulse Oximetry (%) 95 Oxygen Delivery Method Room Air Intake Visit Reasons: EP-lt hand swollen Intake Note: Patent presents with left hand swelling times 3 days. 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 Pt reports h/o Gout and usually takes Indomethacin for flare ups. Denies any injury or trauma to the hand. [facility] Medical History (Updated 05/01/25 @ 15:17 by Tenisha Garcia NP) Swelling of joint, hand, left Persistent atrial fibrillation Paroxysmal atrial fibrillation Anxiety Depression Cataract Hernia Diabetes mellitus PAC (premature atrial contraction) Hyperlipidemia CAD (coronary artery disease) Surgical History History of hernia surgery S/P CABG x 4 Family History Father No problems noted. Mother No problems noted. Social History Housing: House Patient Tobacco Use Status: Former Tobacco user e-Cigarette/Vaping Use: Former Use service: No Current occupational status: employed Cognitive needs: No Hearing needs: No Vision needs: No Review of Systems Const All systems reviewed & are unremarkable except as noted in HPI and below Physical Exam Vital Signs: Last Vital Signs Temp 98.5 F 05/01/25 14:25 Pulse 60 05/01/25 14:25 BP 132/62 05/01/25 14:25 Pulse Ox 95 05/01/25 14:25 Oxygen Delivery Method Room Air 05/01/25 14:25 BMI result Body Mass Index 33.8 Const General: no acute distress Nutritional Appearance: well nourished Orientation/consciousness: patient oriented x3 Neuro General: patient oriented x3, gait normal and moves all extremities Extrem Right upper extremity: normal to inspection and full ROM Left upper extremity: hand Details: normal capillary refill, tenderness, normal ROM of fingers and swelling; no lacerations, no ecchymosis and no crepitus Psych Speech and movement: Normal speech and movement present Assessment & Plan Assessment & Plan (1) Swelling of joint, hand, left: Code(s): M25.442 - Effusion, left hand Plan: Gout, will Order Prednisone for 10 days. Continue on Indomethacin Medications: New prednisone 20 mg PO DAILY 10 tabs 0RF M25.442 - Effusion, left hand Coding Level of Care Code Est Pt Level 4 (74361) Diagnoses Swelling of joint, hand, left M25.442 Time Spent (min) 20
== END 2025-05-01 15:36 | disposition home or self-care (01) ==
PROVIDERS: PCP Student in an Organized Health Care Education/Training Program; Visit Provider Nurse Practitioner Family
DX: M25.442 Effusion, left hand (principal)

== ENCOUNTER 2025-07-27 14:44 | Outpatient (AMB) | payer OTHER, SELFPAY ==
--- OUTSIDE RECORDS SUMMARY | 2024-08-24 06:20 | XMS_ITS ---
Author Organization [facility] Address [address] [place] [address] Care Team Providers Care Client Experience Consultant Name Role Phone Kamille (RETIRED) , Uri Primary Care Provide Abundio Espitia [phone] REASON FOR VISIT change in bowels,wt loss,early satiety Encounters Encounter Location Date Provider Diagnosis [facility] Out[facility] [address] [place], [place] [address] [id number] 08/24/2024 Abundio Rahman Plan Of Treatment No Information Progress Notes * BREA GAMADOB:1945 ( 79 yo M)Acc No.[id number]:08/24/2024 EGD and COL/MAC Patient: BREA CHEN Provider: Jaylan Rahman MD :1945 A ge:78 Y S ex:Male Date:08/24/2024 Address:[address] [id number] Pcp:Uri Simental (RETIRED )MD Subjective: * Chief Complaints: * 1 . Change in bowels,wt loss,early satiety. * Medical History: Objective: * Vitals: Assessment: Plan: * Treatment: * * The named appointment provid er may or may not be the originator of this progress note, and it is not deemed complete until electronically signed by the appointment provider. Sign off status: Pending * Provider: Jaylan Rahman MD Date: 10/25/2023 Generated for Caroleei ng/Fadanielg/eTransmitting on: 09/26/2024 05:54 PM EST
--- OUTSIDE RECORDS SUMMARY | 2024-10-03 09:20 | XMS_ITS ---
Author Organization [facility] Address [address] [place] [address] Care Team Providers Care Burnisher Name Role Phone Kamille (RETIRED) , Uri Primary Care Provide Abundio Espitia [phone] REASON FOR VISIT wt loss,early satiety,change in bowels Encounters Encounter Location Date Provider Diagnosis [facility] Outpatient [address] [place], [place] [address] [id number] 10/03/2024 Abundio Rahman Plan Of Treatment No Information Progress Notes * BREA GAMADOB:1945 ( 79 yo M)Acc No.[id number]:10/03/2024 EGD and COL/MAC Patient: BREA CHEN Provider: Jaylan Rahman MD :1945 A ge:78 Y S ex:Male Date:10/03/2024 Address:[address] [facility] Pcp:Uri Simental (RETIRED )MD Subjective: * Chief Complaints: * 1 . Wt loss,early satiety,change in bowels. * Medical History: Objective: * Vitals: Assessment: Plan: * Treatment: * * The named appointment provid er may or may not be the originator of this progress note, and it is not deemed complete until electronically signed by the appointment provider. Sign off status: Pending * Provider: Jaylan Rahman MD Date: 0 10/03/2024 Generated for Caroleei ng/Fadanielg/eTransmitting on: 09/26/2024 05:55 PM EST
--- OUTSIDE RECORDS SUMMARY | 2024-12-15 04:30 | XMS_ITS ---
Author Organization [facility] Address [address] [place] [address] Care Team Providers Care Winder Fixer Name Role Phone Ramon Moreno Primary Care Provider Jarret Ford Unavailable [phone] Nola Shaikh Unavailable [phone] REASON FOR VISIT seen sooner Encounters Encounter Location Date Provider Diagnosis [address] [address] 12/15/2024 Nola Shaikh Plan Of Treatment Next Appt Details Provider Name:Jarret Ford , 10/03/2025 11:00:00 AM, [address] [place] [address], [phone], Progress Notes * Jagdish GAMA MDOB:1945 (79 yo M)Acc No.[id number]:12/15/2024 Progress Notes Patient: Usman MEI Jagdish Torres Provider: Leonora Shaikh DPM :1945 A ge:79 Y S ex:Male Date:12/15/2024 Address:[address] [place], [place] [phone] Pcp:Ramon Moreno Subjective: * Chief Complaints: * [...] 0 12/15/2024 Generated for Bessie Alvarez on: 09/26/2024 05:54 PM EST
--- NOTE | 2025-07-27 14:49 | A.OFFVIS_ITS ---
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 Accompanied by: Self / Same As Patient Allergies No Known Allergies Allergy (Verified 07/27/25 14:53) Medication List - Last Reconciled 07/27/25 by Mykel Hernandez MD apixaban (Eliquis) 5 mg PO BID cholecalciferol (vitamin D3) 25 mcg PO DAILY coenzyme Q10 300 mg PO DAILY folic acid 20 mg PO DAILY glipizide ER 5 mg PO DAILY levothyroxine 125 mcg PO DAILY magnesium citrate 100 mg PO DAILY mecobalamin (vitamin B12) mcg PO pantoprazole 40 mg PO DAILY rosuvastatin 20 mg PO DAILY 90 days sitagliptin phosphate (Januvia) 100 mg PO DAILY 90 days turmeric mg PO vitamin B complex 1 cap PO DAILY HPI Comments Details: Jagdish comes for follow-up. He is extremely energetic today. He denies any cardiac symptoms. Denies any prolonged palpitation irregular heartbeat. Currently suffering from tooth infection of the left upper tooth. No bleeding issues or neurologic events. Says he does not like to take medications. He denies any exertional chest pain or shortness of breath. Denies any orthopnea, PND, leg edema. No lightheadedness, syncope. REPLACED BY [facility] Medical History Swelling of joint, hand, left Persistent atrial fibrillation Paroxysmal atrial fibrillation Anxiety Depression Cataract Hernia Diabetes mellitus PAC (premature atrial contraction) Hyperlipidemia CAD (coronary artery disease) Surgical History History of hernia surgery S/P CABG x 4 Family History Father No problems noted. Mother No problems noted. Social History Housing: House Patient Tobacco Use Status: Former Tobacco user e-Cigarette/Vaping Use: Former Use service: No Current occupational status: employed Cognitive needs: No Hearing needs: No Vision needs: No Review of Systems Const Denies daytime sleepiness, Denies difficulty sleeping, Denies snoring, Denies stops breathing during sleep and Denies weakness Card Denies chest pain, Denies rapid heart rate, Denies irregular heart rhythm, Denies claudication, Denies leg edema, Denies lightheadedness, Denies palpitations, Denies dyspnea, Denies dyspnea on exertion, Denies orthopnea, Denies paroxysmal nocturnal dyspnea and Denies slow heart rate Resp Denies cough, Denies dyspnea, Denies dyspnea on exertion and Denies snoring GI Reports no additional complaints, Denies hematochezia, Denies change in stool character and Denies dyspepsia Musc Denies abnormal gait, Denies muscle weakness and Denies numbness Neuro Denies Abnormal speech present, Denies abnormal gait, Denies numbness and Denies weakness Endo Denies palpitations Physical Exam Vital Signs: Last Vital Signs Pulse 70 07/27/25 14:50 BP 120/74 07/27/25 14:50 BMI result Body Mass Index 34.2 Const General: cooperative, comfortable, no acute distress, alert, awake and anxious Nutritional Appearance: overweight Orientation/consciousness: patient oriented x3 Limitations: no limitations HEENT Head: Yes normocephalic and Yes atraumatic Neck Neck: Yes trachea midline, Yes supple and Yes no JVD Resp Effort & Inspection: normal respiratory effort Auscultation: clear to auscultation bilaterally Cardio Jugular venous distension: no JVD Rate: regular rate Rhythm: regular rhythm Heart sounds: S1 normal heart sound present, S2 normal heart sound present, no click, no gallops, Murmur heart sound present systolic early and no rubs GI Auscultation: normal bowel sounds Skin General skin exam: no rashes or lesions noted Neuro General: patient oriented x3 and no focal motor deficits Speech: No Abnormal speech present Extrem General: Yes no clubbing, cyanosis or edema Psych Appearance: grossly normal Speech and movement: Restless speech present Affect: Anxious affect present Assessment & Plan Assessment & Plan (1) Paroxysmal atrial fibrillation: Code(s): I48.0 - Paroxysmal atrial fibrillation Category: Medical Plan: Paroxysmal atrial fibrillation which has remained suppressed and has done well with rhythm control approach. Continue pursue rhythm control approach. Much improved symptoms and functionality. Continue full oral anticoagulation, currently on apixaban 5 mg b.i.d.. Advised to call me with any new symptoms. Avoidance of stimulants was discussed. Stress mitigation strategies were discussed. (2) CAD (coronary artery disease): Code(s): I25.10 - Atherosclerotic heart disease of [place] coronary artery without angina pectoris Category: Medical Plan: CAD with prior coronary artery bypass grafting. No current symptoms. However he was asymptomatic prior to his coronary artery bypass grafting as well. Continue current full oral anticoagulation Eliquis and would avoid aspirin therapy to reduce bleeding risk. Continue aggressive risk factor modification with a aggressive diabetes management goal hemoglobin A1c less than 7%. Continue high-intensity statin therapy with advise LDL less than 60 mg/dL. Advised lipid panel in near future. (3) Aortic stenosis: Code(s): I35.0 - Nonrheumatic aortic (valve) stenosis Category: Medical Plan: Aortic stenosis which is mild clinically. Follow-up echocardiogram in 6 months time. Continue aggressive vascular risk factor modification. Will follow up in the clinic in 6 months time, sooner PRN. Thank you for allowing me to partake in his care Orders: Orders CA echo transthoracic complete 6 Months I35.0 - Nonrheumatic aortic (valve) stenosis Lipid Panel Today I25.10 - Atherosclerotic heart disease of [place] coronary artery without angina pectoris Basic Metabolic Panel Today I48.0 - Paroxysmal atrial fibrillation NT Pro B Type Natriuretic Pept Today I48.0 - Paroxysmal atrial fibrillation Medications: New amoxicillin 875 mg PO Q12H 20 tabs 0RF Coding Level of Care Code Est Pt Level 4 (44040) Complex EM visit Add On G2211 Diagnoses Paroxysmal atrial fibrillation I48.0 CAD (coronary artery disease) I25.10 Aortic stenosis I35.0
[2025-07-27 14:50] VITALS: BP 120/74; PULSE 70; BMI 34.2
--- OUTSIDE RECORDS SUMMARY | 2025-07-27 17:55 | XMS_ITS | Patient Health Record ---
Author Organization [facility] Address [address] [place] [address] Care Team Providers Care Health Care Sanitary Technician Name Role Phone Kamille (RETIRED) Uri LEWIS Primary Care Provide r Abundio Yepez Unavailable [phone] Allergies No Known Allergies Reason For Referral No Information Medications Medication SIG (Take, Route, Frequency, Duration) Notes Start Date End Date Status Vitamin D Active CoQ-10 Active Vitamin B Complex Ac tive LORazepam 0.5 MG Oral; Duration: 12 prn Not-Taking Rosuvastatin Calcium 20 MG Oral; Duration: 90 Active Pantoprazole Sodium 40 MG Oral; Duration: 90 Active Aspirin 81 Active Januvia 100 MG Oral; Duration: 90 Active glipiZIDE ER 5 MG Oral; Duration: 90 Active Levothyroxine Sodium 125 MCG Oral; Duration: 90 Active Social History Tobacco Use: Social [...] Risk Notes Problem Change in bowel habit (77664344) Change in bowel habits (R19.4) Active confirmed Problem Early satiety (126379038) Early satiety (R68.81) Active confirmed Problem Weight decreased (811561913) Loss of weight (R63.4) Active confirmed Vital Signs Blood pressure diastolic 00 mm Hg 08/11/2024 Height 6 ft 2 in in 08/11/2024 Blood pressure systolic 00 mm Hg 08/11/2024 Weight 223 lbs 08/11/2024 BMI 28.63 kg/m2 08/11/2024 Encounters Encounter Location Date Provider Diagnosis [facility] [address] [place] [address] 08/11/2024 Abundio Rahman Change in bowel habits R19.4 ; Early satiety R68.81 and Loss of weight R63.4 [facility] [address] [place] [address] 08/11/2024 Abundio Barrera [facility] [address] [place] [address] 08/22/2024 [facility] [address] [place] [address] 09/07/2024 Abundio Rahman Assessments Encounter Date Diagnosis [...] stress test and upcoming cardiology appointment at [facility], we shall defer the GI procedures [...] stress test and upcoming cardiology appointment at [facility], we shall defer the GI procedures [...] stress test and upcoming cardiology appointment at [facility], we shall defer the GI procedures [...] Insured Coverage Start Date Coverage End Date [facility] [address] [place] [address] [id number] NATAN JAGDISH Self - patient is the insured Medical (General) History Medical History History ICD Code Hypothyroidism NIDDM Coronary artery disease-prev ious CABG--had been seeing , but is scheduled for a followup appointment with [facility] in 08/2024 after a nuclear stress test was done there in July, Elevated Cholesterol Gout Chronic renal insufficiency COVID Denies [place],CVA,Lung disease,renal disease Hypertension Hyperlipidemia Surgical History Surgery Date(Month/Year) Hernia repair x 2 Nasal polyps CABG 4V in 2008 Cataracts bilaterally
--- OUTSIDE RECORDS SUMMARY | 2025-07-27 17:55 | XMS_ITS | Patient Health Record ---
Author Organization [facility] Address [address] [place] [address] Care Team Providers Care Workforce Development Specialist Name Role Phone TiffanieRamon Primary Care Provider Jarret Ford Unavailable [phone] Black, Nola Unavailable [phone] Allergies Allergen (clinical drug ingredient) Drug/Non Drug [...] Lab: Notes/Report: HEMOGLOBIN A1C % (HH) 7.2 HEMOGLOBIN A1C (GLYCOHEMOGLO BIN) Reviewed date:02/21/2025 10:35:23 AM Interpretation: Performing Lab: Notes/Report: HEMOGLOBIN A1C % (HH) 8.3 Reason For Referral No Information Medications Medication SIG (Take, Route, Frequency, Duration) Notes Start Date End Date Status Pantoprazole Sodium 40 MG 1 tablet 1/2 t o 1 hour before morning meal Orally Once a day Active Rosuvastatin Calcium 20 MG 1 tablet Orally Once a day Active Levothyroxine Sodium 125 MCG 1 tablet in the morning on an empty stomach Orally Once a day Active glipiZIDE 5 MG 1 tablet 30 minutes before breakfast Orally Once a day Active Januvia 100 MG 1 tablet Orally Once a day Active Vitamin B Complex Ac tive Multi Vitamin - 1 tablet Orally Once a day Active Folic Acid Active Turmeric Active Extra Depth Orthopedic Shoes (1 Pair) with Customized Heat Molded Multidensity Innersoles (3 Pair) as directed Dx: NIDDM/Polyneuropathy (E11.42), Hammertoe Foot Deformity (M20.41,M20.42), Preulcerative Skin Lesion(s) (L85.1 11/15/2024 Active Eliquis 5 MG as directed Orally Active busPIRone HCl 10 MG 1 tablet Orally Twic e a day Active Immunizations Vaccine Route Administration Date Status Comme nts Influenza Unknown 06/23/2024 Administered Social History Tobacco Use: Social History Observation [...] year? Yes How often did you have a dri nk containing alcohol in the past year? 2 to 3 times a week (3 points) How many drinks did you have on a typical day when you were drinking in the past year? 1 or 2 drinks (0 point) How often did you have six o r more drinks on one occasion in the past year? Never (0 point) Points 3 Interpretation Negative Problems Problem Type SNOMED Code ICD Code Onset Dates Problem Status W/U Status Risk Notes Problem Acquired hammer toe of right foot (2030613158815814 ) Other hammer toe(s) (acquired), right foot (M20.41) Active confirmed Problem Acquired hammer toe of left foot (4935552745854193 ) Other hammer toe(s) (acquired), left foot (M20.42) Active confirmed Problem Polyneuropathy due to type 2 diabetes mellitus (350184714) Type 2 diabetes mellitus with diabetic polyneuropathy (E11.42) Active confirmed Vital Signs Blood pressure diastolic 60 mm Hg 06/06/2025 Height 6 ft 2inch in 06/06/2025 Blood pressure systolic 128 mm Hg 06/06/2025 Weight 245 lbs 06/06/2025 BMI 31.45 kg/m2 06/06/2025 Procedures Procedure Date Ordered Date Performed Result Body Sit e 55208-EHTFMON NAIL, 6 OR MORE 11/15/2024 N/A 89348-ULHR SKIN LESIONS, OVER 4 11/15/2024 N/A 96446-OWPKZCT NAIL, 6 OR MORE 02/21/2025 N/A 11659-QBOE SKIN LESIONS, OVER 4 02/21/2025 N/A 31394-LHUUJSD NAIL, 6 OR MORE 06/06/2025 N/A 15953-QBFR SKIN LESIONS, OVER 4 06/06/2025 N/A Encounters Encounter Location Date Provider Diagnosis [address] [address] 11/15/2024 Jarretclark Ford Type 2 diabetes mellitus with diabetic polyneuropathy E11.42 ; Tinea unguium B35.1 ; Other hammer toe(s) (acquired), right foot M20.41 and Other hammer toe(s) (acquired), left foot M20.[address] [address] 02/21/2025 Jarretclark Ford Type 2 diabetes mellitus with diabetic polyneuropathy E11.42 and Tinea unguium B35.[address] [address] 06/06/2025 Jarret Logan Type 2 diabetes mellitus with diabetic polyneuropathy E11.42 and Tinea unguium B35.[address] [address] 11/15/2024 Jarret Ford [address] [address] 11/22/2024 Jarret Ford [address] [address] 12/15/2024 Jarret Logan Assessments Encounter Date Diagnosis (ICD Code) Assessment Notes Treatment Notes Treatment Clinical Notes Section Notes 11/15/2024 Type 2 diabetes mellitus with diabetic polyneuropathy (ICD-10 - E11.42) 11/15/2024 Tinea unguium (ICD-10 - B35.1) 02/21/2025 Type 2 diabetes mellitus with diabetic polyneuropathy (ICD-10 - E11.42) 02/21/2025 Tinea unguium (ICD-10 - B35.1) 06/06/2025 Type 2 diabetes mellitus with diabetic polyneuropathy (ICD-10 - E11.42) 06/06/2025 Tinea unguium (ICD-10 - B35.1) 11/15/2024 Other hammer toe(s) (acquired), right foot (ICD-10 - M20.41) Patient Educated with: DIABETIC FOOT CARE INSTRUCTIONS. pdf (DIABETIC FOOT CARE INSTRUCTIONS. pdf) 11/15/2024 Other hammer toe(s) (acquired), left foot (ICD-10 - M20.42) Plan Of Treatment Pending Test Test Name Order Date 82911-BEEIGKD NAIL, 6 OR MORE 11/15/2024 20107-LWBFOMQ NAIL, 6 OR MORE 02/21/2025 53357-MKGTABO NAIL, 6 OR MORE 06/06/2025 94237-UXTB SKIN LESIONS, OVER 4 06/06/20 02666-XAGB SKIN LESIONS, OVER 4 02/22/20 92959-DAKN SKIN LESIONS, OVER 4 11/15/19 Next Appt Details Provider Name:Jarret Ford , 10/03/2025 11:00:00 AM, [address] [place], [address], Insurance Providers Payer Name Payer Address Payer Phone Subscriber Number Group Number Insured Name Patient Relationship to Insured Coverage Start Date Coverage End Date [facility] [address] [place] [address] [id number] Jagdish Montejo Self - patient is the insured 2 Medical (General) History Medical History History ICD Code Anxiety Arthritis covid-19 Depression type II diabetes Gout Heart disease - A-FIB Kidney disease Numbness Poor circulation Reflux sinusitis thyroid Chicken pox Hypercholesterolemia Cataracts Surgical History Surgery Date(Month/Year) cataract surgery Hospitalization History Reason Date(Month/Year) [facility]- Sleep Issue 09/13
== END 2025-07-27 15:14 | disposition home or self-care (01) ==
LOC: HO.HCS 14:45
PROVIDERS: PCP Internal Medicine; Visit Provider Internal Medicine Cardiovascular Disease
DX: I48.0 Paroxysmal atrial fibrillation (principal); I25.10 Atherosclerotic heart disease of native coronary artery without angina pectoris; I35.0 Nonrheumatic aortic (valve) stenosis
CPT/HCPCS: 99214; G2211

== ENCOUNTER 2025-07-29 08:01 | Outpatient (REF) | payer OTHER, SELFPAY ==
--- OUTSIDE RECORDS SUMMARY | 2024-08-24 06:20 | XMS_ITS ---
Author Organization [facility] Address [address] [place] [address] Care Team Providers Care Try Out Person Name Role Phone Kamille (RETIRED) , Uri Primary Care Provide Abundio Espitia [phone] REASON FOR VISIT change in bowels,wt loss,early satiety Encounters Encounter Location Date Provider Diagnosis [facility] [place] [address] [place], [place] [address] [id number] 08/24/2024 Abundio Rahman Plan Of Treatment No Information Progress Notes * BREA GAMADOB:1945 ( 79 yo M)Acc No.[id number]:08/24/2024 EGD and COL/MAC Patient: BREA CHEN Provider: Jaylan Rahman MD :1945 A ge:78 Y S ex:Male Date:08/24/2024 Address:[address] [facility] Pcp:Uri Simental (RETIRED )MD Subjective: * Chief [...] Date: 10/25/2023 Generated for Caroleei ng/Fadanielg/eTransmitting on: 09/28/2024 08:04 AM EST
--- OUTSIDE RECORDS SUMMARY | 2024-10-03 09:20 | XMS_ITS ---
Author Organization [facility] Address [address] [place] [address] Care Team Providers Care Windows Software Engineer Name Role Phone Kamille (RETIRED) , Uri Primary Care Provide Abundio Espitia [phone] REASON FOR VISIT wt loss,early satiety,change in bowels Encounters Encounter Location Date Provider Diagnosis [facility] [place] [address] [place], [place] [address] [id number] 10/03/2024 Abundio Rahman Plan Of Treatment No Information Progress Notes * BREA GAMADOB:1945 ( 79 yo M)Acc No.[id number]:10/03/2024 EGD and COL/MAC Patient: BREA CHEN Provider: Jaylan Rahman MD :1945 A ge:78 Y S ex:Male Date:10/03/2024 Address:[address] [facility] Pcp:Uri Simental (RETIRED )MD Subjective: * Chief [...] 0 10/03/2024 Generated for Caroleei ng/Fadanielg/eTransmitting on: 09/28/2024 08:04 AM EST
--- OUTSIDE RECORDS SUMMARY | 2024-12-15 04:30 | XMS_ITS ---
Author Organization [facility] Address [address] [place] [address] Care Team Providers Care Olericulture Teacher Name Role Phone Ramon Moreno Primary Care Provider Jarret Ford Unavailable [phone] Nola Shaikh Unavailable [phone] REASON FOR VISIT seen sooner Encounters Encounter Location Date Provider Diagnosis [address] [address] 12/15/2024 Nola Shaikh Plan Of Treatment Next Appt Details Provider Name:Jarret Ford , 10/03/2025 11:00:00 AM, [address] [place] [address], [phone], Progress Notes * Jagdish GAMA MDOB:1945 (79 yo M)Acc No.[id number]:12/15/2024 Progress Notes Patient: Usman MEI Jagdish Torres Provider: Leonora Shaikh DPM :1945 A ge:79 Y S ex:Male Date:12/15/2024 Address:[address] [place], [place] [phone] Pcp:Ramon Moreno Subjective: * Chief Complaints: * [...] 0 12/15/2024 Generated for Bessie Alvarez on: 09/28/2024 08:03 AM EST
--- OUTSIDE RECORDS SUMMARY | 2025-07-29 08:04 | XMS_ITS | Patient Health Record ---
Author Organization [facility] Address [address] [place] [address] Care Team Providers Care Guest Services Associate Name Role Phone Kamille (RETIRED) Uri LEWIS Primary Care Provide r Abundio Yepez Unavailable [phone] Allergies No Known Allergies Reason For Referral [...] Risk Notes Problem Change in bowel habit (47792274) Change in bowel habits (R19.4) Active confirmed Problem Early satiety (152628101) Early satiety (R68.81) Active confirmed Problem Weight decreased (265038333) Loss of weight (R63.4) Active confirmed Vital Signs Blood pressure diastolic 00 mm Hg 08/11/2024 Height 6 ft 2 in in 08/11/2024 Blood pressure systolic 00 mm Hg 08/11/2024 Weight 223 lbs 08/11/2024 BMI 28.63 kg/m2 08/11/2024 Encounters Encounter Location Date Provider Diagnosis [facility] [address] [place] [address] 08/11/2024 Abundio Rahman Change in bowel habits R19.4 ; Early satiety R68.81 and Loss of weight R63.4 [facility] [address] [place] [address] 08/11/2024 Abundio Barrera [facility] [address] [place] [address] 08/22/20[facility] [address] [place] [address] 09/07/2024 Abundio Rahman Assessments Encounter Date Diagnosis [...] stress test and upcoming cardiology appointment at [facility], we shall defer the GI procedures until [...] stress test and upcoming cardiology appointment at [facility], we shall defer the GI procedures until [...] stress test and upcoming cardiology appointment at [facility], we shall defer the GI procedures until [...] Insured Coverage Start Date Coverage End Date [facility] [address] [place] [address] [phone] [id number] NATAN JAGDISH Self - patient is the insured Medical (General) History Medical History History ICD Code Hypothyroidism NIDDM Coronary artery disease-prev ious CABG--had been seeing , but is scheduled for a followup appointment with [facility] in 08/2024 after a nuclear stress test was done there in July, Elevated Cholesterol Gout Chronic renal insufficiency COVID Denies [place],CVA,Lung disease,renal disease Hypertension Hyperlipidemia Surgical History Surgery Date(Month/Year) Hernia repair x 2 Nasal polyps CABG 4V in 2008 Cataracts bilaterally
--- OUTSIDE RECORDS SUMMARY | 2025-07-29 08:04 | XMS_ITS | Patient Health Record ---
Author Organization [facility] Address [address] [place] [address] Care Team Providers Care Software Testing Specialist Name Role Phone TiffanieRamon Primary Care Provider Jarret Ford Unavailable [phone] Black, Nola Unavailable [phone] Allergies Allergen (clinical drug ingredient) Drug/Non Drug [...] Problem Acquired hammer toe of right foot (0972040050521273 ) Other hammer toe(s) (acquired), right foot (M20.41) Active confirmed Problem Acquired hammer toe of left foot (1466765843056692 ) Other hammer toe(s) (acquired), left foot (M20.42) Active confirmed Problem Polyneuropathy due to type 2 diabetes mellitus (270570051) Type 2 diabetes mellitus with diabetic polyneuropathy (E11.42) Active confirmed Vital Signs Blood pressure diastolic 60 mm Hg 06/06/2025 Height 6 ft 2inch in 06/06/2025 Blood pressure systolic 128 mm Hg 06/06/2025 Weight 245 lbs 06/06/2025 BMI 31.45 kg/m2 06/06/2025 Procedures Procedure Date Ordered Date Performed Result Body Sit e 61303-VVYWBCG NAIL, 6 OR MORE 11/15/2024 N/A 51332-GPEK SKIN LESIONS, OVER 4 11/15/2024 N/A 55575-PZIAUPU NAIL, 6 OR MORE 02/21/2025 N/A 31661-FYDP SKIN LESIONS, OVER 4 02/21/2025 N/A 96496-GLTKFMD NAIL, 6 OR MORE 06/06/2025 N/A 48087-YKPO SKIN LESIONS, OVER 4 06/06/2025 N/A Encounters Encounter Location Date Provider Diagnosis [address] [address] 11/15/2024 Jarretclark Ford Type 2 diabetes mellitus with diabetic polyneuropathy E11.42 ; Tinea unguium B35.1 ; Other hammer toe(s) (acquired), right foot M20.41 and Other hammer toe(s) (acquired), left foot M20.[address] [address] 02/21/2025 Jarretclark Ford Type 2 diabetes mellitus with diabetic polyneuropathy E11.42 and Tinea unguium B35.[address] [address] 06/06/2025 Jarret Logan Type 2 diabetes mellitus with diabetic polyneuropathy E11.42 and Tinea unguium B35.[address] [address] 11/15/2024 Jarret Ford [address] [address] 11/22/2024 Jarret Ford [address] [address] 12/15/2024 Jarret Logan Assessments Encounter Date Diagnosis [...] Treatment Pending Test Test Name Order Date 03199-GRELRNE NAIL, 6 OR MORE 11/15/2024 43506-PFKNJRS NAIL, 6 OR MORE 02/21/2025 41764-PKKXBLO NAIL, 6 OR MORE 06/06/2025 42432-EYVI SKIN LESIONS, OVER 4 06/06/20 63282-ALGI SKIN LESIONS, OVER 4 02/22/20 25131-GCTM SKIN LESIONS, OVER 4 11/15/19 Next Appt Details Provider Name:Jarret Ford , 10/03/2025 11:00:00 AM, [address] [place], [address], Insurance Providers Payer Name Payer Address Payer Phone Subscriber Number Group Number Insured Name Patient Relationship to Insured Coverage Start Date Coverage End Date [facility] [address] [place] [address] [id number] Jagdish Montejo Self - patient is the insured 2 Medical (General) History Medical History History ICD Code Anxiety Arthritis covid-19 Depression type II diabetes Gout Heart disease - A-FIB Kidney disease Numbness Poor circulation Reflux sinusitis thyroid Chicken pox Hypercholesterolemia Cataracts Surgical History Surgery Date(Month/Year) cataract surgery Hospitalization History Reason Date(Month/Year) [facility]- Sleep Issue 09/13
[2025-07-29 09:55] LABS: Anion Gap 12 (12-20); Blood Urea Nitrogen 21 mg/dL (9-16); Calcium 9.0 mg/dL (8.4-10.2); Carbon Dioxide 25 mmol/L (22-29); Chloride 107 mmol/L (96-108); Cholesterol 144 mg/dL (<200); Estimated Glomerular Filt Rate > 60; HDL Cholesterol 35 mg/dL (>40); Potassium 4.4 mmol/L (3.3-5.1); Sodium 140 mmol/L (135-145); Triglycerides 139 mg/dL (<150)
[2025-07-29 10:13] LABS: NT Pro B Type Natriuretic Pept 234.1 pg/mL (<300)
== END 2025-07-29 08:02 | disposition home or self-care (01) ==
LOC: HO.LAB 08:01
PROVIDERS: PCP Internal Medicine; Visit Provider Internal Medicine Cardiovascular Disease
DX: I25.10 Atherosclerotic heart disease of native coronary artery without angina pectoris (principal); I48.0 Paroxysmal atrial fibrillation
CPT/HCPCS: 36415; 80048; 80061; 83880

== ENCOUNTER 2025-07-31 13:10 | Outpatient (AMB) | payer OTHER, SELFPAY ==
--- OUTSIDE RECORDS SUMMARY | 2024-08-24 06:20 | XMS_ITS ---
Author Organization [facility] Address [address] [place] [address] Care Team Providers Care Supervising Producer Name Role Phone Kamille (RETIRED) , Uri Primary Care Provide Abundio Espitia [phone] REASON FOR VISIT change in bowels,wt loss,early satiety Encounters Encounter Location Date Provider Diagnosis [facility] [place] [address] [place], [place] [address] [id number] 08/24/2024 Abundio Rahman Plan Of Treatment No Information Progress Notes * BREA GAMADOB:1945 ( 79 yo M)Acc No.[id number]:08/24/2024 EGD and COL/MAC Patient: BREA CHEN Provider: Jaylan Rahman MD :1945 A ge:78 Y S ex:Male Date:08/24/2024 Address:[address] [facility] Pcp:Uri Simental (RETIRED )MD Subjective: * Chief [...] Jaylan Rahman MD Date: 10/25/2023 Generated for Printi ng/Faxing/eTransmitting on: 09/30/2024 03:20 PM EST
--- OUTSIDE RECORDS SUMMARY | 2024-10-03 09:20 | XMS_ITS ---
Author Organization [facility] Address [address] [place] [address] Care Team Providers Care Sign Artist Name Role Phone Kamille (RETIRED) , Uri Primary Care Provide Abundio Espitia [phone] REASON FOR VISIT wt loss,early satiety,change in bowels Encounters Encounter Location Date Provider Diagnosis [facility] [place] [address] [place], [place] [address] [id number] 10/03/2024 Abundio Rahman Plan Of Treatment No Information Progress Notes * BREA GAMADOB:1945 ( 79 yo M)Acc No.[id number]:10/03/2024 EGD and COL/MAC Patient: BREA CHEN Provider: Jaylan Rahman MD :1945 A ge:78 Y S ex:Male Date:10/03/2024 Address:[address] [facility] Pcp:rUi Simental (RETIRED )MD Subjective: * Chief Complaints: [...] Rahman MD Date: 0 10/03/2024 Generated for Printi ng/Faxing/eTransmitting on: 09/30/2024 03:20 PM EST
--- OUTSIDE RECORDS SUMMARY | 2024-12-15 04:30 | XMS_ITS ---
Author Organization [facility] Address [address] [place] [address] Care Team Providers Care Director Of Archives Name Role Phone Ramon Moreno Primary Care Provider [phone] Jarret Ford Unavailable [phone] Nola Shaikh Unavailable [phone] REASON FOR VISIT seen sooner Encounters Encounter Location Date Provider Diagnosis [address] [address] 12/15/2024 Nola Shaikh Plan Of Treatment Next Appt Details Provider Name:Jarret Ford , 10/03/2025 11:00:00 AM, [address] [place] [address], [phone], Progress Notes * Jagdish GAMA MDOB:1945 (79 yo M)Acc No.[id number]:12/15/2024 Progress Notes Patient: Usman MEI Jagdish Torres Provider: Leonora Shaikh DPM :1945 A ge:79 Y S ex:Male Date:12/15/2024 Address:[address] [place], [place] [phone] Pcp:Ramon Moreno Subjective: * Chief Complaints: * [...] 0 12/15/2024 Generated for Bessie Alvarez on: 09/30/2024 03:20 PM EST
[2025-07-31 13:12] VITALS: BP 132/86; PULSE 61; TEMP 36.6; O2SAT 97; BMI 33.8
--- NOTE | 2025-07-31 13:12 | MHC.PC.OV ---
Vital Signs 07/31/25 13:12 Height 6 ft 2 in Weight 263 lb 6 oz BMI 33.8 BP 132/86 Blood Pressure Location Lt brachial Position Sitting Pulse 61 Pulse Source Pulse Oximeter Temp 98 F Temp Source Temporal Artery Scan Pulse Oximetry (%) 97 Oxygen Delivery Method Room Air Intake Visit Reasons: angle-croke Associate Marketing Manager Required: No Accompanied by: Self / Same As Patient Allergies No Known Allergies Allergy (Verified 07/31/25 13:12) Tobacco use date assessed: 07/31/25 Fall risk assessment: No Falls in past year Dental Screening Dental Screen Date: 07/31/25 Did you have a dental visit in the last 12 months?: Yes Did you have a dental problem in the last 6 months where you did not have access to dental care?: No HPI HPI Comments History of Present Illness Details The patient is a 79-year-old male presenting for chronic condition management. He reports generally feeling well without any specific complaints of nausea, vomiting, chest pain, shortness of breath, or headaches. His primary concern is uncontrolled diabetes, with his last A1c in September of this year being 8.2%. A recent one-time blood glucose measurement was 221 mg/dL. His diabetes medications include glipizide, which was previously a twice-daily dose and is now once daily, and Januvia. The patient has not tried metformin before due to concerns about its side effects. The patient has a history of atrial fibrillation, for which he takes Eliquis twice daily, and aortic stenosis, which was seen on a recent echocardiogram. He has a history of coronary artery disease status post a CABG procedure. His cholesterol is well-controlled on rosuvastatin 40 mg, with a recent LDL of 82 mg/dL and total cholesterol of 144 mg/dL. His other chronic conditions include hypothyroidism, managed with levothyroxine 125 mcg, and acid reflux, for which he takes pantoprazole. About a year ago, he experienced insomnia for four to five months and was treated with Remeron, which was effective; he has since weaned off the medication and sleeps well. He notes he gained some weight while taking Remeron. Medical History: - Type 2 diabetes mellitus - Atrial fibrillation - Aortic stenosis - Hypothyroidism - Gastroesophageal reflux disease - Hyperlipidemia - History of insomnia, resolved - History of COVID-19 infection Surgical History: - Coronary artery bypass grafting (CABG) Medications: - Eliquis (apixaban) twice daily for atrial fibrillation - Rosuvastatin 40 mg for hyperlipidemia - Coenzyme Q - Glipizide for diabetes - Januvia (sitagliptin) for diabetes - Levothyroxine 125 mcg for hypothyroidism - Pantoprazole for acid reflux - Vitamin B supplementation Diagnostic Results: - HgbA1c (September): 8.2% - Recent lipid panel: Total cholesterol 144, LDL 82. - Recent blood glucose: 221 mg/dL. - Recent blood counts and electrolytes: Reported as normal. - Recent echocardiogram: Showed aortic stenosis. 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 - Functional Status/Exercise: The patient is very active, performing his own yard work on a half-acre of land, including raking leaves, mowing the lawn, and trimming shrubbery. - He also walks in his neighborhood for about half a mile. - Family status: The patient is , has a daughter he practices law with, and a 5-year-old grandson. [facility] Medical History (Updated 07/31/25 @ 13:44 by Clif Bello MD) GERD without esophagitis Hypothyroidism Swelling of joint, hand, left Persistent atrial fibrillation Paroxysmal atrial fibrillation Anxiety Depression Cataract Hernia Diabetes mellitus PAC (premature atrial contraction) Hyperlipidemia CAD (coronary artery disease) Surgical History History of hernia surgery S/P CABG x 4 Family History (Updated 07/31/25 @ 13:21 by Melodie George MA) Father No problems noted. Mother No problems noted. Social History Housing: House Patient Tobacco Use Status: Never used Tobacco e-Cigarette/Vaping Use: Never Used service: No Current occupational status: employed Cognitive needs: No Hearing needs: No Vision needs: No Questionnaire PHQ-9 Over the last 2 weeks, how often have you been bothered by any of the following problems? 1. Little interest or pleasure in doing things: not at all 2. Feeling down, depressed, or hopeless: not at all 3. Trouble falling or staying asleep, or sleeping too much: not at all 4. Feeling tired or having little energy: not at all 5. Poor appetite or overeating: not at all 6. Feeling bad about yourself - or that you are a failure or have let yourself or your family down: not at all 7. Trouble concentrating on things, such as reading the newspaper or watching television: not at all 8. Moving or speaking so slowly that other people could have noticed. Or the opposite - being so fidgety or restless that you have been moving around a lot more than usual: not at all 9. Thoughts that you would be better off or of hurting yourself in some way: not at all Total score: 0 Depression Screening Interpretation: Negative Depression Screening Done: Yes Source: Developed by Drs. Abundio Mcdonald, Dinora Agudelo, James Barrios and colleagues, with an educational hany from [employer]. Thrive Questionnaire Date Thrive assessed: 07/31/25 I am a: Patient What is your living situation today?: I have a steady place to live Within the past 12 months, did the food you bought not last and you didn't have the money to get more?: Never true Within the past 12 months, did you worry whether your food would run out before you got money to buy more?: Never true Do you have trouble paying for medicines?: No Do you have trouble getting transportation to medical appointments?: No Do you have trouble paying your heating and electricity bill?: No Do you have trouble taking care of your child, family member or friend?: No Do you have trouble with day-to-day activities such as bathing, preparing meals, shopping, managing finances, etc.?: No Are you currently unemployed and looking for a job?: No Are you interested in more education?: No THRIVE Score: 0 AUDIT C Alcohol Use Questionnaire (AUDIT-C) 1. How often do you have a drink containing alcohol?: Monthly or less 2. How many drinks containing alcohol do you have on a typical day when you are drinking?: 1 or 2 3. How often do you have six or more drinks on one occasion?: Less than monthly Total Score: 2 Score Reviewed/Action Taken: Yes KERRIE-7 AMB Questionnaire KERRIE-7 Date KERRIE - 7 assessed: 07/31/25 Feeling nervous, anxious, or on edge: 0 = Not at all Not being able to stop or control worryin = Not at all Worrying too much about different things: 0 = Not at all Trouble relaxin = Not at all Being so restless that it is hard to sit still: 0 = Not at all Becoming easily annoyed or irritable: 0 = Not at all Feeling afraid as if something awful might happen: 0 = Not at all Total KERRIE-7 score (0-4 normal; 5-9 mild; 10-14 moderate; 15-21 severe): 0 Source: Developed by Drs. Abundio Mcdonald, Dinora Agudelo, James Barrios and colleagues, with an educational hany from [employer]. Review of Systems Narrative - General: Patient reports feeling pretty good. - Denies nausea or vomiting. - Cardiovascular: Denies chest pain or palpitations. - Respiratory: Denies shortness of breath. - Genitourinary: Reports normal urination. - Gastrointestinal: Reports normal defecation. - Neurologic: Denies headaches. - Psychiatric: Reports history of sleeping problems which have resolved. All systems reviewed & are unremarkable except as reviewed in HPI and above Physical exam (Primary Care) Vital Signs: Last Vital Signs Temp 98 F 07/31/25 13:12 Pulse 61 07/31/25 13:12 BP 132/86 07/31/25 13:12 Pulse Ox 97 07/31/25 13:12 Oxygen Delivery Method Room Air 07/31/25 13:12 BMI result Body Mass Index 33.8 Tobacco/Smoking Status: Tobacco use Status Tobacco use date assessed 07/31/25 07/31/25 13:13 Patient Tobacco Use Status Never used Tobacco 07/31/25 13:21 e-Cigarette/Vaping Use Never Used 07/31/25 13:21 PHQ-9: PHQ-9 Score PHQ-9: Total score 0 07/31/25 13:21 Depression Screening Interpretation: Negative Thrive Assessment: Date of Thrive Assessment Date Thrive assessed 07/31/25 07/31/25 13:13 Narrative General: +Alert and oriented, Well nourished, No acute distress. Eye: Pupils are equal, round and reactive to light, Intact accommodation, Extraocular movements are intact, Normal conjunctiva, Vision unchanged. HENT: Normocephalic, Atraumatic, Tympanic membranes are clear, Normal hearing, Oral mucosa is moist, No pharyngeal erythema, Ear canals patent. Respiratory: Lungs CTA bilaterally, No wheeze, Respirations are non-labored. Cardiovascular: Regular rate, Regular rhythm, S1 auscultated, S2 auscultated, No murmur, Good pulses equal in all extremities, Normal peripheral perfusion, No edema. Gastrointestinal: Soft, Non-tender, Non-distended, Normal bowel sounds, No organomegaly. Musculoskeletal: Normal range of motion, Normal strength, No tenderness, No swelling, No deformity, Normal gait. Integumentary: Warm, Dry, [place], Intact. Neurologic: Alert, Oriented, Normal sensory, Normal motor function, No focal defects, Cranial Nerves II-XII are grossly intact, Normal deep tendon reflexes. Psychiatric: Cooperative, Appropriate mood & affect, Normal judgment. This encounter qualifies as a Level 5 (08373) visit due to management of multiple chronic conditions, including uncontrolled type 2 diabetes, atrial fibrillation on anticoagulation, aortic stenosis, hypothyroidism, and CAD status post-CABG. The visit required high-complexity medical decision-making, including review and interpretation of prior labs and echocardiogram results, ordering of diagnostic testing (A1c, TSH), and discussion of potential medication adjustments (escalating glipizide vs. adding SGLT2 inhibitor) based on risk-benefit considerations in the setting of significant cardiovascular disease. The patient?s comorbidities and medication profile present a high risk of morbidity without close follow-up, justifying high-complexity assessment and planning. Coding Level of Care Code Est Pt Level 5 (95113) Complex EM visit Add On G2211 Diagnoses Type 2 diabetes mellitus without complication, without long-term current use of insulin E11.9 Diabetes mellitus type: type 2 Diabetes mellitus computer terminal operator insulin use: without computer terminal operator use Diabetes mellitus complication status: without complication Paroxysmal atrial fibrillation I48.0 Nonrheumatic aortic valve stenosis I35.0 Cardiac valve disease etiology: nonrheumatic Hyperlipidemia, unspecified hyperlipidemia type E78.5 Hyperlipidemia type: unspecified Other specified hypothyroidism E03.8 Hypothyroidism type: other Coronary artery disease involving squaxin coronary artery of squaxin heart without angina pectoris I25.10 Coronary Disease-Associated Artery/Lesion type: squaxin artery Torres Martinez vs. transplanted heart: squaxin heart Associated angina: without angina GERD without esophagitis K21.9 Assessment & Plan Assessment & Plan (1) Diabetes mellitus: Comment: - The patient's A1c was 8.2% in September, and a recent blood sugar was 221, indicating poor glycemic control. - This is a significant cardiovascular risk factor given his history of aortic stenosis and prior CABG. - The plan is to obtain an updated A1c today. - Based on the results, medication adjustment will be considered, such as increasing glipizide or adding Jardiance. - The patient has previously refused metformin. - Follow-up is scheduled in 3 months with repeat labs to be drawn one week prior to the visit. Code(s): E11.9 - Type 2 diabetes mellitus without complications Category: Medical Qualifiers: Diabetes mellitus type: type 2 Diabetes mellitus computer terminal operator insulin use: without chcf use Diabetes mellitus complication status: without complication Qualified Code(s): E11.9 - Type 2 diabetes mellitus without complications (2) Paroxysmal atrial fibrillation: Comment: - The patient is stable on Eliquis and denies symptoms. - The plan is to continue current anticoagulation therapy. Code(s): I48.0 - Paroxysmal atrial fibrillation Category: Medical (3) Aortic stenosis: Comment: - This was noted on a recent echocardiogram. - Management will focus on aggressive cardiovascular risk factor reduction, primarily through improved glycemic control Code(s): I35.0 - Nonrheumatic aortic (valve) stenosis Category: Medical Qualifiers: Cardiac valve disease etiology: nonrheumatic Qualified Code(s): I35.0 - Nonrheumatic aortic (valve) stenosis (4) Hyperlipidemia: Comment: - The condition is well-controlled with a recent LDL of 82. - The patient will continue rosuvastatin 40 mg. Code(s): E78.5 - Hyperlipidemia, unspecified Category: Medical Qualifiers: Hyperlipidemia type: unspecified Qualified Code(s): E78.5 - Hyperlipidemia, unspecified (5) Hypothyroidism: Comment: - The patient is on levothyroxine, and thyroid function has not been checked since September. (Last TSH wnl) - A TSH level will be checked with today's lab work. Code(s): E03.9 - Hypothyroidism, unspecified Category: Medical Qualifiers: Hypothyroidism type: other Qualified Code(s): E03.8 - Other specified hypothyroidism (6) CAD (coronary artery disease): Comment: - S/p CABG - Discussed with patient today the importance of diabetes and HLD control to reduce risk factors Code(s): I25.10 - Atherosclerotic heart disease of squaxin coronary artery without angina pectoris Category: Medical Qualifiers: Coronary Disease-Associated Artery/Lesion type: squaxin artery [place] vs. transplanted heart: squaxin heart Associated angina: without angina Qualified Code(s): I25.10 - Atherosclerotic heart disease of squaxin coronary artery without angina pectoris (7) GERD without esophagitis: Comment: - The patient remains on pantoprazole and is asymptomatic. - He will continue his current medication. Code(s): K21.9 - Gastro-esophageal reflux disease without esophagitis Category: Medical Plan: Health Maintenance: - Advised the patient to receive the updated COVID-19 and annual influenza vaccinations. - Encouraged continued physical activity, praising his current regimen of walking and extensive yard work. - Established a plan for regular monitoring of diabetes with follow-up appointments every three months and lab work to be completed one week prior to each visit. Patient was informed and verbally consented to the use of an ambient scribe for clinic note documentation during this visit. Plan I expressed my concern to the patient regarding his uncontrolled diabetes, as indicated by his A1c of 8.2% in September and a recent random glucose of 221 mg/dL. I explained that the A1c reflects a three-month average and that better glycemic control is crucial for reducing his cardiovascular risk, especially given his history of aortic stenosis and prior CABG. I have ordered blood work for today, including an A1c and TSH level. I discussed that based on these results, we may need to adjust his medications, with possibilities including increasing his glipizide dose or adding a medication such as Jardiance. I noted his previous refusal to try metformin. I informed the patient that I will call him with the results to finalize the plan. I advised the patient to get his COVID-19 and flu vaccines. I strongly encouraged him to maintain his active lifestyle, which is beneficial for his overall health. We agreed on a follow-up appointment in three months, and I instructed him to have labs drawn one week prior to the visit for continuous monitoring. Orders: Orders TSH reflex Free T4 Today E03.9 - Hypothyroidism, unspecified Hemoglobin A1c 3 Months E11.9 - Type 2 diabetes mellitus without complications Hemoglobin A1c Today E11.9 - Type 2 diabetes mellitus without complications Patient Instructions: - Please go to the lab downstairs today to get your blood drawn for your sugar levels (A1c) and thyroid function. - I will give you a call once the lab results are back to discuss if we need to make any changes to your medications. - Please get your updated COVID-19 shot and your annual flu shot at a local pharmacy. - Continue your physical activities like walking and yard work; they are very good for your health. - Your next appointment will be in three months. - Please have your blood work done again one week before your next visit so we can review the results together.
--- OUTSIDE RECORDS SUMMARY | 2025-07-31 15:20 | XMS_ITS | Patient Health Record ---
Author Organization [facility] Address [address] [place] [address] Care Team Providers Care Chalk Tester Name Role Phone Kamille (RETIRED) Uri LEWIS Primary Care Provide r Abundio Yepez Unavailable [phone] Allergies No Known Allergies Reason For Referral [...] Risk Notes Problem Change in bowel habit (44534868) Change in bowel habits (R19.4) Active confirmed Problem Early satiety (162054291) Early satiety (R68.81) Active confirmed Problem Weight decreased (082763778) Loss of weight (R63.4) Active confirmed Vital Signs Blood pressure diastolic 00 mm Hg 08/11/2024 Height 6 ft 2 in in 08/11/2024 Blood pressure systolic 00 mm Hg 08/11/2024 Weight 223 lbs 08/11/2024 BMI 28.63 kg/m2 08/11/2024 Encounters Encounter Location Date Provider Diagnosis [facility] [address] [place] [address] 08/11/2024 Abundio Rahman Change in bowel habits R19.4 ; Early satiety R68.81 and Loss of weight R63.4 [facility] [address] [place] [address] 08/11/2024 Abundio Barrera [facility] [address] [place] [address] 08/[facility] [address] [place] [address] 09/07/2024 Abundio Rahman Assessments Encounter Date Diagnosis [...] Coverage End Date [facility] [address] [place] [address] [phone] [id number] NATAN JAGDISH Self - patient is the insured Medical (General) History Medical History History ICD Code Hypothyroidism NIDDM Coronary artery disease-prev ious CABG--had been seeing , but is scheduled for a followup appointment with [facility] in 08/2024 after a nuclear stress test was done there in July, Elevated Cholesterol Gout Chronic renal insufficiency COVID Denies [place],CVA,Lung disease,renal disease Hypertension Hyperlipidemia Surgical History Surgery Date(Month/Year) Hernia repair x 2 Nasal polyps CABG 4V in 2008 Cataracts bilaterally
--- OUTSIDE RECORDS SUMMARY | 2025-07-31 15:20 | XMS_ITS | Patient Health Record ---
Author Organization [facility] [place] Address [address] [place] [address] Care Team Providers Care Outside Sales Manager Name Role Phone TiffanieRamon Primary Care Provider [phone] Jarret Ford Unavailable [phone] Black, Nola Unavailable [phone] Allergies Allergen (clinical drug ingredient) Drug/Non Drug [...] Problem Acquired hammer toe of right foot (5738185513178237 ) Other hammer toe(s) (acquired), right foot (M20.41) Active confirmed Problem Acquired hammer toe of left foot (3450286255683670 ) Other hammer toe(s) (acquired), left foot (M20.42) Active confirmed Problem Polyneuropathy due to type 2 diabetes mellitus (394212726) Type 2 diabetes mellitus with diabetic polyneuropathy (E11.42) Active confirmed Vital Signs Blood pressure diastolic 60 mm Hg 06/06/2025 Height 6 ft 2inch in 06/06/2025 Blood pressure systolic 128 mm Hg 06/06/2025 Weight 245 lbs 06/06/2025 BMI 31.45 kg/m2 06/06/2025 Procedures Procedure Date Ordered Date Performed Result Body Sit e 69962-LNHUAZY NAIL, 6 OR MORE 11/15/2024 N/A 31513-CIFG SKIN LESIONS, OVER 4 11/15/2024 N/A 05614-JCEDWZM NAIL, 6 OR MORE 02/21/2025 N/A 79964-CFBE SKIN LESIONS, OVER 4 02/21/2025 N/A 99739-ZJIENWB NAIL, 6 OR MORE 06/06/2025 N/A 17660-WJYE SKIN LESIONS, OVER 4 06/06/2025 N/A Encounters Encounter Location Date Provider Diagnosis [address] [address] 11/15/2024 Jarretclark Ford Type 2 diabetes mellitus with diabetic polyneuropathy E11.42 ; Tinea unguium B35.1 ; Other hammer toe(s) (acquired), right foot M20.41 and Other hammer toe(s) (acquired), left foot M20.[address] [address] 02/21/2025 Jarretclark Ford Type 2 diabetes mellitus with diabetic polyneuropathy E11.42 and Tinea unguium B35.[address] [address] 06/06/2025 Jarret Logan Type 2 diabetes mellitus with diabetic polyneuropathy E11.42 and Tinea unguium B35.[address] [address] 11/15/2024 Jarret Ford [address] [address] 11/22/2024 Jarret Ford [address] [address] 12/15/2024 Jarret Logan Assessments Encounter Date Diagnosis [...] Treatment Pending Test Test Name Order Date 12028-QRVTTVA NAIL, 6 OR MORE 11/15/2024 75688-WWCLTQO NAIL, 6 OR MORE 02/21/2025 42325-UWMVTGC NAIL, 6 OR MORE 06/06/2025 47417-JSNZ SKIN LESIONS, OVER 4 06/06/20 53245-DAMV SKIN LESIONS, OVER 4 02/22/20 56451-QDHO SKIN LESIONS, OVER 4 11/15/19 Next Appt Details Provider Name:Jarret Ford , 10/03/2025 11:00:00 AM, [address] [place], [address], Insurance Providers Payer Name Payer Address Payer Phone Subscriber Number Group Number Insured Name Patient Relationship to Insured Coverage Start Date Coverage End Date [facility] [address] [place] [address] [id number] Jagdish Montejo Self - patient is the insured 2 Medical (General) History Medical History History ICD Code Anxiety Arthritis covid-19 Depression type II diabetes Gout Heart disease - A-FIB Kidney disease Numbness Poor circulation Reflux sinusitis thyroid Chicken pox Hypercholesterolemia Cataracts Surgical History Surgery Date(Month/Year) cataract surgery Hospitalization History Reason Date(Month/Year) [facility]- Sleep Issue 09/13
== END 2025-07-31 13:42 | disposition home or self-care (01) ==
LOC: HO.HMCHD 13:11
PROVIDERS: PCP Internal Medicine; Visit Provider Student in an Organized Health Care Education/Training Program
DX: E11.9 Type 2 diabetes mellitus without complications (principal); I48.0 Paroxysmal atrial fibrillation; I35.0 Nonrheumatic aortic (valve) stenosis; E78.5 Hyperlipidemia, unspecified; E03.8 Other specified hypothyroidism; I25.10 Atherosclerotic heart disease of native coronary artery without angina pectoris; K21.9 Gastro-esophageal reflux disease without esophagitis

== ENCOUNTER 2025-08-04 12:36 | Outpatient (REF) | payer OTHER, SELFPAY ==
--- OUTSIDE RECORDS SUMMARY | 2024-12-15 04:30 | XMS_ITS ---
Author Organization [facility] Address [address] [place] [address] Care Team Providers Care Brand Ambassador Promotional Model Name Role Phone Ramon Moreno Primary Care Provider [phone] Jarret Ford Unavailable [phone] Nola Shaikh Unavailable [phone] REASON FOR VISIT seen sooner Encounters Encounter Location Date Provider Diagnosis [address] [address] 12/15/2024 Nola Shaikh Plan Of Treatment Next Appt Details Provider Name:Jarret Ford , 10/03/2025 11:00:00 AM, [address] [place] [address], [phone], Progress Notes * Jagdish GAMA MDOB:1945 (79 yo M)Acc No.[id number]:12/15/2024 Progress Notes Patient: Usman MEI Jagdish Torres Provider: Leonora Shaikh DPM :1945 A ge:79 Y S ex:Male Date:12/15/2024 Address:[address] [place], [place] [id number] Pcp:Ramon Moreno Subjective: * Chief Complaints: * 1 . Seen sooner. * Medical History: Objective: * Vitals: Assessment: Plan: * Treatment: * Images: * The named appointment provid er may or may not be the originator of this progress note, and it is not deemed complete until electronically signed by the appointment provider. Sign off status: Pending * Provider: Leonora Shaikh DPM Date: 0 12/15/2024 Generated for Bessie Alvarez on: 10/04/2024 06:29 PM EST
[2025-08-04 14:47] LABS: Free T4 (Free Thyroxine) 0.97 ng/dL (0.71-1.85)
--- OUTSIDE RECORDS SUMMARY | 2025-08-04 18:30 | XMS_ITS | Patient Health Record ---
Author Organization [facility] Address [address] [place] [address] Care Team Providers Care Senior Payroll Administrator Name Role Phone TiffanieRamon Primary Care Provider [phone] Jarret Ford Unavailable [phone] Black, Nola Unavailable [phone] Allergies Allergen (clinical drug ingredient) Drug/Non Drug [...] Problem Acquired hammer toe of right foot (6965844615192847 ) Other hammer toe(s) (acquired), right foot (M20.41) Active confirmed Problem Acquired hammer toe of left foot (5857606937669677 ) Other hammer toe(s) (acquired), left foot (M20.42) Active confirmed Problem Polyneuropathy due to type 2 diabetes mellitus (218748878) Type 2 diabetes mellitus with diabetic polyneuropathy (E11.42) Active confirmed Vital Signs Blood pressure diastolic 60 mm Hg 06/06/2025 Height 6 ft 2inch in 06/06/2025 Blood pressure systolic 128 mm Hg 06/06/2025 Weight 245 lbs 06/06/2025 BMI 31.45 kg/m2 06/06/2025 Procedures Procedure Date Ordered Date Performed Result Body Sit e 16135-DCJWAST NAIL, 6 OR MORE 11/15/2024 N/A 26345-XLPJ SKIN LESIONS, OVER 4 11/15/2024 N/A 95679-WHZYQRN NAIL, 6 OR MORE 02/21/2025 N/A 96450-ZKCV SKIN LESIONS, OVER 4 02/21/2025 N/A 17875-JWPBMYD NAIL, 6 OR MORE 06/06/2025 N/A 08584-CTGU SKIN LESIONS, OVER 4 06/06/2025 N/A Encounters Encounter Location Date Provider Diagnosis [address] [address] 11/15/2024 Jarretclark Ford Type 2 diabetes mellitus with diabetic polyneuropathy E11.42 ; Tinea unguium B35.1 ; Other hammer toe(s) (acquired), right foot M20.41 and Other hammer toe(s) (acquired), left foot M20.[address] [address] 02/21/2025 Jarretclark Ford Type 2 diabetes mellitus with diabetic polyneuropathy E11.42 and Tinea unguium B35.[address] [address] 06/06/2025 Jarret Logan Type 2 diabetes mellitus with diabetic polyneuropathy E11.42 and Tinea unguium B35.[address] [address] 11/15/2024 Jarret Ford [address] [address] 11/22/2024 Jarret Ford [address] [address] 12/15/2024 Jarret Logan Assessments Encounter Date Diagnosis [...] Treatment Pending Test Test Name Order Date 94007-WCGKUAT NAIL, 6 OR MORE 11/15/2024 85182-KOOTDMV NAIL, 6 OR MORE 02/21/2025 74061-NWBYHMZ NAIL, 6 OR MORE 06/06/2025 28536-HMWG SKIN LESIONS, OVER 4 06/06/20 92826-QOYN SKIN LESIONS, OVER 4 02/22/20 47899-ISEU SKIN LESIONS, OVER 4 11/15/19 Next Appt Details Provider Name:Jarret Ford , 10/03/2025 11:00:00 AM, [address] [place], [address], Insurance Providers Payer Name Payer Address Payer Phone Subscriber Number Group Number Insured Name Patient Relationship to Insured Coverage Start Date Coverage End Date [facility] [address] [place] [address] [id number] Jagdish Montejo Self - patient is the insured 2 Medical (General) History Medical History History ICD Code Anxiety Arthritis covid-19 Depression type II diabetes Gout Heart disease - A-FIB Kidney disease Numbness Poor circulation Reflux sinusitis thyroid Chicken pox Hypercholesterolemia Cataracts Surgical History Surgery Date(Month/Year) cataract surgery Hospitalization History Reason Date(Month/Year) [facility]- Sleep Issue 09/13
== END 2025-08-04 12:37 | disposition home or self-care (01) ==
LOC: HO.LAB 12:36
PROVIDERS: PCP Student in an Organized Health Care Education/Training Program; Visit Provider Student in an Organized Health Care Education/Training Program
DX: E11.9 Type 2 diabetes mellitus without complications (principal); E03.9 Hypothyroidism, unspecified
CPT/HCPCS: 36415; 83036; 84439; 84443